=== PATIENT | female | born 1955 | race Caucasian/White ===

== ENCOUNTER 2020-05-10 10:02 | Outpatient (CLI) | payer OTHER, SELFPAY ==
--- NOTE | ~2020-05-10 | XR_ITS ---
EXAMINATION: XR shoulder RT min 2V DATE: 05/10/2020 10:18 INDICATION: Right shoulder pain. TECHNIQUE: 4 views of right shoulder were obtained. COMPARISON: None. FINDINGS: Bone alignment is normal. No fracture. There is mild osteoarthritis of glenohumeral joint a nd severe osteoarthritis of the acromioclavicular joint. IMPRESSION: 1. Polyarticular osteoarthritis. Reviewed, dictated and finalized at location A.
== END 2020-05-10 10:03 | disposition home or self-care (01) ==
LOC: ANHIMG 10:06
PROVIDERS: PCP Family Medicine; Visit Provider Physician Assistant
DX: M25.511 Pain in right shoulder (principal); M19.011 Primary osteoarthritis, right shoulder
CPT/HCPCS: 73030

== ENCOUNTER 2020-07-10 06:53 | Outpatient (NON) | payer OTHER, SELFPAY ==
[2020-07-10 21:00] LABS: SARS-CoV-2 RNA PCR Positive
== END 2020-07-10 06:54 ==
LOC: ANHCOVIDDT 07:09
PROVIDERS: PCP Family Medicine; Visit Provider Family Medicine
DX: U07.1 COVID-19 (principal)
CPT/HCPCS: 87635; C9803; U0003

== ENCOUNTER → 2020-07-22 11:59 | Outpatient (CLI) | payer OTHER, SELFPAY ==
--- NOTE | ~2020-07-22 | US_ITS ---
US renal BI 07/22/2020 12:43 Procedure: Realtime transabdominal ultrasound of the kidneys and bladder. Indication: Tubulointerstitial nephritis. Comparison: 08/26/2012 Findings: Renal echotexture is normal bilaterally without hydronephrosis, contour deforming mass or r enal calculus. The right kidney measures 8.8 cm and left kidney measures 10.4 cm. Bladder not well d istended for evaluation. Impression: 1: Mild right renal atrophy. Reviewed, dictated and finalized at location B. MAKER Impression: 1: Mild right renal atrophy.
== END ==
PROVIDERS: PCP Family Medicine; Visit Provider Family Medicine
DX: R10.9 Unspecified abdominal pain (principal); N12 Tubulo-interstitial nephritis, not specified as acute or chronic; R31.9 Hematuria, unspecified; Z87.448 Personal history of other diseases of urinary system; N26.1 Atrophy of kidney (terminal)
CPT/HCPCS: 76775

== ENCOUNTER → 2020-12-27 01:50 | Outpatient (CLI) | payer OTHER, SELFPAY ==
[2020-12-28 14:52] LABS: SARS-CoV-2 RNA PCR Negative
== END ==
PROVIDERS: PCP Family Medicine; Visit Provider Internal Medicine Gastroenterology
DX: Z01.812 Encounter for preprocedural laboratory examination (principal); Z20.822 Contact with and (suspected) exposure to COVID-19
CPT/HCPCS: C9803; U0003; U0005

== ENCOUNTER 2020-12-30 02:23 | Day surgery (SDC) | payer OTHER, SELFPAY ==
[2020-12-23 10:48] VITALS: BMI 39.0
--- NOTE | 2020-12-30 10:24 | WPDANESEPPF ---
Anes - Initial Pre Proc Eval Procedure: Operation Date: 12/30/20 12:00 Proposed Procedures p Screening Colonoscopy - Roland Jiménez MD Date/Time: 12/30/20 10:24 Surgeon: Roland Jiménez MD Pre Op Diagnosis: neoplasm screening Patient Data Age: 65 Gender: F Height: 1.6 m Weight: 100 kg Allergies Allergy/AdvReac Type Severity Reaction Status Date / Time exenatide Allergy Unknown Unknown Verified 12/30/20 10:32 grass pollen Allergy Unknown unknown Verified 12/30/20 10:32 latex Allergy Unknown Unknown Verified 12/30/20 10:32 morphine Allergy Unknown Unknown Verified 12/30/20 10:32 Penicillins Allergy Unknown Unknown Verified 12/30/20 10:32 Home Medications Medication Instructions Recorded Confirmed Type simvastatin 20 mg tablet 20 mg PO DAILY #90 tablet 11/08/19 12/23/20 Rx loratadine 10 mg tablet 10 mg PO DAILY 07/08/20 12/23/20 History hydrocodone 5 mg-acetaminophen 325 1 tablet PO Q6H PRN #28 tablet 07/23/20 12/23/20 Rx mg tablet allopurinol 300 mg tablet 300 mg PO DAILY #90 tablet 09/03/20 12/23/20 Rx diclofenac sodium 75 mg 75 mg PO BID #180 tablet 09/03/20 12/23/20 Rx tablet,delayed release glimepiride 1 mg tablet 0.5 mg PO QAM #90 tablet 09/03/20 12/23/20 Rx liraglutide 0.6 mg/0.1 mL (18 mg/3 1.2 mg SUB-Q DAILY #27 ml 09/03/20 12/23/20 Rx mL) subcutaneous pen injector lisinopril 10 mg tablet 10 mg PO BID #180 tablet 09/03/20 12/23/20 Rx oxybutynin chloride 15 mg 15 mg PO DAILY #90 tablet 09/03/20 12/23/20 Rx tablet,extended release 24 hr cholecalciferol (vitamin D3) 1,250 50,000 unit PO .2 per week #26 cap 09/09/20 12/23/20 Rx mcg (50,000 unit) capsule hydrocodone 5 mg-acetaminophen 325 1 tablet PO Q6H PRN #30 tablet 09/29/20 12/23/20 Rx mg tablet Patient hx anesthesia problems: none Family hx anesthesia problems: none PMFSH Past Medical History Medical History (Updated 12/29/20 @ 10:17 by Vin Zuniga DO) Arthritis of shoulder region, right Atrophy of right kidney Calculus of ureter 2012 right / stent History of kidney stones Low back pain Mixed hyperlipidemia Obesity Primary hyperparathyroidism Sacroiliac joint dysfunction of both sides Type 2 diabetes mellitus without complications Surgical History Surgical History (Updated 12/29/20 @ 10:17 by Vin Zuniga DO) History of History of spinal fusion Family History Family History Father Diabetes mellitus Hypertension Family history of elevated blood lipids Family history of coronary artery disease Arthritis, rheumatoid Sibling Family history of lupus erythematosus Social History Social History Smoking status: Never smoker Alcohol intake: current Substance use type: does not use Living arrangements: with family Gender identity (if verbalized by the patient): Female Anes - Eval Final PreProcedure Day of Procedure 12/30/20 10:24 Patient weight: obese Heart: regular rate and rhythm Lungs: clear to auscultation and normal air movement Airway: Mallampati scale class III Neurological: alert and oriented Last oral intake: >/= 8 hours ASA classification: III Emergent: no Anesthetic plan: proceed Anesthesia type and monitoring: general GIVS and standard monitoring Informed Consent: The patient's anesthetic plan and its attendant risks and benefits were discussed with the patient/family/POA. Questions were solicited and answers provided to the satisfaction of the patient/family/POA.
[2020-12-30 10:34] VITALS: BP 114/72; PULSE 108; RESP 24; TEMP 36.2; O2SAT 96; BMI 40.9
[2020-12-30] MEDS: LACTATED RINGERS 1,000 ML 150 ML IV CONT (10:38)
--- NOTE | 2020-12-30 10:40 | PM.HPGS ---
History of Present Illness History of Present Illness Consent: Risks, benefits, and alternatives have been discussed and questions answered. Patient agrees to proceed with procedure. Chief complaint: neoplasm screening Narrative: Cathy Glynn is a 65 year old female with last colonoscopy 2009 Review of Systems Constitutional: Constitutional: Denies headache(s) and Denies weakness Eyes: Eyes: Denies blurry vision ENT: Reports Normal hearing present, Denies headache(s) and Denies neck pain Cardiovascular: Cardiovascular: Denies chest pain and Denies dyspnea Respiratory: Respiratory: Denies dyspnea Gastrointestinal: Gastrointestinal: Reports no additional gastrointestinal complaints Genitourinary: Genitourinary: Denies dysuria Musculoskeletal: Musculoskeletal: Denies neck pain Integumentary/Breasts: Skin/Breast: Denies dry skin Neurologic: Reports Normal hearing present, Denies headache(s) and Denies weakness Psychiatric: Psychiatric: Denies anxiety Endocrine: Endocrine: Denies change in body appearance Hematologic/Lymphatic: Hematologic/Lymphatic: Denies easy bleeding Allergic/Immunologic: Allergic/Immunologic: Denies urticaria PMF Past Medical History Medical History (Updated 12/29/20 @ 10:17 by Vin Zuniga DO) Arthritis of shoulder region, right Atrophy of right kidney Calculus of ureter 2013 right / stent History of kidney stones Low back pain Mixed hyperlipidemia Obesity Primary hyperparathyroidism Sacroiliac joint dysfunction of both sides Type 2 diabetes mellitus without complications Surgical History Surgical History (Updated 12/29/20 @ 10:17 by Vin Zuniga DO) History of History of spinal fusion Family History Family History Father Diabetes mellitus Hypertension Family history of elevated blood lipids Family history of coronary artery disease Arthritis, rheumatoid Sibling Family history of lupus erythematosus Social History Social History Smoking status: Never smoker Alcohol intake: current Substance use type: does not use Living arrangements: with family Gender identity (if verbalized by the patient): Female Meds Home Medications and Allergies Home Medications Medication Instructions Recorded Confirmed Type simvastatin 20 mg tablet 20 mg PO DAILY #90 tablet 11/08/19 12/23/20 Rx loratadine 10 mg tablet 10 mg PO DAILY 07/08/20 12/23/20 History hydrocodone 5 mg-acetaminophen 325 1 tablet PO Q6H PRN #28 tablet 07/23/20 12/30/20 Rx mg tablet allopurinol 300 mg tablet 300 mg PO DAILY #90 tablet 09/03/20 12/30/20 Rx diclofenac sodium 75 mg 75 mg PO BID #180 tablet 09/03/20 12/30/20 Rx tablet,delayed release glimepiride 1 mg tablet 0.5 mg PO QAM #90 tablet 09/03/20 12/30/20 Rx liraglutide 0.6 mg/0.1 mL (18 mg/3 1.2 mg SUB-Q DAILY #27 ml 09/03/20 12/30/20 Rx mL) subcutaneous pen injector lisinopril 10 mg tablet 10 mg PO BID #180 tablet 09/03/20 12/30/20 Rx oxybutynin chloride 15 mg 15 mg PO DAILY #90 tablet 09/03/20 12/23/20 Rx tablet,extended release 24 hr cholecalciferol (vitamin D3) 1,250 50,000 unit PO .2 per week #26 cap 09/09/20 12/30/20 Rx mcg (50,000 unit) capsule hydrocodone 5 mg-acetaminophen 325 1 tablet PO Q6H PRN #30 tablet 09/29/20 12/30/20 Rx mg tablet Allergies Allergy/AdvReac Type Severity Reaction Status Date / Time exenatide Allergy Unknown Unknown Verified 12/30/20 10:32 grass pollen Allergy Unknown unknown Verified 12/30/20 10:32 latex Allergy Unknown Unknown Verified 12/30/20 10:32 morphine Allergy Unknown Unknown Verified 12/30/20 10:32 Penicillins Allergy Unknown Unknown Verified 12/30/20 10:32 Vital Signs Vital Signs - 24 hr 12/30/20 10:34 Temperature 97.2 F L Pulse Rate 108 H Respiratory Rate 24 H Blood Pressure 114/72 Pulse Oximetry 96 Exam Const: Ge
[2020-12-30 10:56] VITALS: BP 94/67; PULSE 93; RESP 30; O2SAT 95
[2020-12-30 11:06] VITALS: BP 116/92; PULSE 92; RESP 25; O2SAT 94
[2020-12-30 11:16] VITALS: BP 117/78; PULSE 83; RESP 16; O2SAT 94
== END 2020-12-30 11:17 | disposition home or self-care (01) ==
PROVIDERS: PCP Family Medicine; Visit Provider Internal Medicine Gastroenterology
PROC: 0DJD8ZZ Inspection of Lower Intestinal Tract, Via Natural or Artificial Opening Endoscopic (ICD-10-PCS; CPT 45378; principal; 2020-12-30 12:00)
DX: Z12.11 Encounter for screening for malignant neoplasm of colon (principal); K57.30 Diverticulosis of large intestine without perforation or abscess without bleeding; K64.8 Other hemorrhoids; E78.2 Mixed hyperlipidemia; E11.9 Type 2 diabetes mellitus without complications; N26.1 Atrophy of kidney (terminal); E21.3 Hyperparathyroidism, unspecified; E66.9 Obesity, unspecified; Z68.41 Body mass index [BMI] 40.0-44.9, adult; Z79.84 Long term (current) use of oral hypoglycemic drugs; Z79.891 Long term (current) use of opiate analgesic
CPT/HCPCS: 45378; C9803; J7120; U0003; U0005

== ENCOUNTER → 2021-01-23 12:20 | Outpatient (CLI) | payer OTHER, SELFPAY ==
--- NOTE | ~2021-01-23 | MM_ITS ---
EXAMINATION: MM screening lew BI w guillermo HISTORY: Screening TECHNIQUE: Craniocaudal and mediolateral oblique 3-D tomosynthesis images were obtained and synthetic 2-D images were generated. CAD analysis was submitted and interpreted. COMPARISON: Comparison to multiple prior studies sequentially, with oldest reviewed study dated 01/2012. BREAST PARENCHYMAL COMPOSITION: There are scattered areas of fibroglandular density. FINDINGS: There is a developing asymmetry in the upper outer quadrant of the left breast with associa jez calcifications. The right breast is stable without evidence for malignancy. IMPRESSION: 1. Developing left breast asymmetry. 2. Additional spot compression and mediolateral views with possible follow-up breast ultrasound recom mended. BI-RADS Category 0: Incomplete: Needs additional imaging evaluation. Reviewed, dictated and finalized at location A. IMPRESSION: 1. Developing left breast asymmetry. 2. Additional spot compression and mediolateral views with possible follow-up b reast ultrasound recommended. BI-RADS Category 0: Incomplete: Needs additional imaging evaluation.
--- NOTE | ~2021-01-23 | DEXA_ITS ---
Bone Density Report Name: Cathy Glynn Age: 65 Sex: Female Ethnicity: White Date of : 1955 Indication: postmenopausal; screening for osteoporosis; parental hip fracture; height loss; Referring Provider: CHRISTIAN ENCINAS Study: Bone densitometry was performed. Exam Date: January 23, 2021 Accession number: [id number] Bone Density: Region BMD T-score Z-score Classification AP Spine (L1, L2) 1.062 0.8 2.4 Normal Femoral Neck (Left) 0.574 -2.5 -1.0 Osteoporosis Total Hip (Left) 0.817 -1.0 0.2 Normal Femoral Neck (Right) 0.660 -1.7 -0.2 Osteopenia Total Hip (Right) 0.800 -1.2 0.0 Osteopenia Total Hip Mean 0.809 -1.1 0.1 Osteopenia World Health Organization criteria for BMD impression classify patients as: Normal (T-score at or above -1.0), Osteopenia (T-score between -1.0 and -2.5), or Osteoporosis (T-score at or below -2.5). 10-year Fracture Risk: FRAX not reported because: Some T-score for Spine Total or Hip Total or Femoral Neck at or below -2.5 Clinical Information Provided by Patient: Parent has had a hip fracture Has used the following medications: Vitamin D Patient maximum height was 64.0 Menopause Age: 50 No regular weight bearing exercise Drinks caffeinated beverages Onset of menses at age 13 Number of children 2 Impression: The patient has osteoporosis, based on the Left Femoral Neck T-score. The patient has risk factors, including: parental hip fracture. Discussion: INCREASED RISK OF FRACTURE. BONE DENSITY IS UNDESIRABLY LOW AT ONE OR MORE SKELETAL SITES, CONSISTENT WITH POSTMENOPAUSAL OSTEOPOROSIS. This patient's lowest T-score meets the World Health Organization's (WHO) criteria for osteoporosis at one or more sites (T-score -2.5 or below). In untreated patients, the risk of osteoporotic fracture increases approximately two-fold for each 1.0 SD decrease in T-score. Low bone density is not the only risk factor for fracture; also consider factors such as patient's age, frailty or poor health, risk of falling, risk of injury, previous osteoporotic fracture, family history of osteoporosis, cigarette smoking, low body weight, etc. Not everyone with low bone mineral density has osteoporosis; osteomalacia and other metabolic bone disorders should also be considered. Patients who have osteoporosis should be evaluated for specific diseases and conditions (secondary causes) that may cause or contribute to bone loss. The [place] [employer]ocrinologists (AACE) and National Osteoporosis Foundation (NOF) recommend pharmacologic intervention for all postmenopausal women whose T-score is in this range. The patient should follow a healthful lifestyle (good nutrition with adequate calcium and vitamin D, and appropriate weight-bearing exercise). Follow-Up: Consider a repeat BMD and Verteb
== END ==
PROVIDERS: PCP Family Medicine; Visit Provider Family Medicine
DX: Z12.31 Encounter for screening mammogram for malignant neoplasm of breast (principal); E21.0 Primary hyperparathyroidism; Z13.820 Encounter for screening for osteoporosis; R92.8 Other abnormal and inconclusive findings on diagnostic imaging of breast; M81.0 Age-related osteoporosis without current pathological fracture; M85.851 Other specified disorders of bone density and structure, right thigh
CPT/HCPCS: 77063; 77067; 77080

== ENCOUNTER → 2021-02-02 08:56 | Outpatient (CLI) | payer OTHER, SELFPAY ==
--- NOTE | ~2021-02-02 | MMUS_ITS ---
EXAMINATION: MM diagnostic mammo unilat LT, US breast LT limited HISTORY: Left breast asymmetry on screening mammogram TECHNIQUE: Additional 3-D tomosynthesis images of the left breast were performed and synthetic 2-D im ages were generated. CAD analysis was submitted and interpreted. High resolution limited left breast ultrasound was performed. COMPARISON: 01/23/2021, 10/27/2016, 11/26/2011 FINDINGS: MAMMOGRAPHIC FINDINGS: There is a persistent focal asymmetry with punctate calcification at the 2:00 location 13 cm from the nipple in the posterior third of the breast. ULTRASOUND: There appears to be an approximately 1.9 x 1.7 cm oval, not parallel mass with indistinct margins at the 2:00 location 12 cm from the nipple with internal vascularity and mixed posterior features. There there are two cysts at the 1:00 location 12 cm from the nipple measuring 1.1 cm and 1.8 cm. There is a questionable 5 mm oval hypoechoic mass with no posterior features or internal vascularity at the 2 :00 location 7 cm from the nipple. IMPRESSION: 1. Indeterminate mass at the 2:00 location 12 cm from the nipple. 2. Ultrasound-guided biopsy is recommended. BI-RADS category 4, suspicious findings. Reviewed, dictated and finalized at location A. IMPRESSION: 1. Indeterminate mass at the 2:00 location 12 cm from the nipple. 2. Ultrasound-guided biopsy is recommended. BI-RADS category 4, suspicious findings.
== END ==
PROVIDERS: PCP Family Medicine; Visit Provider Family Medicine
DX: R92.8 Other abnormal and inconclusive findings on diagnostic imaging of breast (principal)
CPT/HCPCS: 76642; 77065

== ENCOUNTER 2022-02-19 15:19 | Outpatient (CLI) | payer OTHER, SELFPAY ==
--- NOTE | ~2022-02-19 | US_ITS ---
EXAMINATION: US pelvic complete DATE: 02/19/2022 15:55 INDICATION: Postmenopausal bleeding Comparison:No prior studies for comparison. TECHNIQUE: Multiple transabdominal and endovaginal sonographic images of the pelvis performed. FINDINGS: The uterus measures 6.5 x 1.7 x 3.1 cm. The endometrial complex measures 3 mm. There are ut erine fibroids, largest measuring 2.6 cm. The ovaries are not visualized. There is no free fluid in the pelvis. There are no abnormal masses s een on either side. IMPRESSION: 1. Multiple uterine fibroids, largest measuring 2.6 cm. Reviewed, dictated and finalized at location A.
== END 2022-02-19 15:20 | disposition home or self-care (01) ==
PROVIDERS: PCP Family Medicine; Visit Provider Family Medicine
DX: N95.0 Postmenopausal bleeding (principal); D25.9 Leiomyoma of uterus, unspecified
CPT/HCPCS: 76856

== ENCOUNTER 2022-05-31 11:26 | Outpatient (CLI) | payer OTHER, SELFPAY ==
[2022-05-31 12:16] LABS: Hematocrit 29.1 % (37.0-47.0); Hemoglobin 8.9 g/dL (12.0-15.0)
[2022-05-31 12:27] LABS: Anion Gap 10 mmol/L (8-16); Blood Urea Nitrogen 24 mg/dL (7-17); Calcium 9.2 mg/dL (8.4-10.2); Carbon Dioxide 22 mmol/L (22-30); Chloride 105 mmol/L (98-107); Estimated Glomerular Filt Rate 56; Glucose 196 mg/dL (65-110); Potassium 4.5 mmol/L (3.4-5.0); Sodium 137 mmol/L (137-145)
== END 2022-05-31 11:27 | disposition home or self-care (01) ==
LOC: ANHSURGERY 11:33
PROVIDERS: Anesthesiology; PCP Family Medicine; Visit Provider Obstetrics & Gynecology
DX: N95.0 Postmenopausal bleeding (principal); E11.9 Type 2 diabetes mellitus without complications; Z01.818 Encounter for other preprocedural examination
CPT/HCPCS: 36415; 80048; 85014; 85018

== ENCOUNTER 2022-06-05 10:30 | Observation (INO) | payer OTHER, SELFPAY ==
[2022-05-27 09:01] VITALS: BMI 32.8
--- NOTE | 2022-05-27 09:30 | PC.NURSE ---
Report to the Outpatient Waiting Room, entrance under the green pavilion located off [facility], at time __11:30AM on date __06/04/22 . OR Time: _1:30PM . Time changes happen often and if your time is changed the preop area will call you the afternoon before. - You and your visitor will be asked to self-screen and do not enter if you have any COVID symptoms. - Only one visitor and NO children visitors are allowed at this time. - The patient visitor is requested to leave or wait in car when not with patient due to restrictions. - A mask is required within the hospital. Patients may have clear liquids (water, carbonated beverages, clear teas, apple juice) until 3 hours prior to surgery with a maximum of 20 ounces. - No food from midnight until time of surgery Take the following medications with a SIP of water the morning of surgery: __METOPROLOL, HYDROCODONE NEEDED Medications to discontinue per physician ____XERALTO 24 HOURS BEFORE SURGERY PER DR ENCINAS-LAST DOSE- 06/03/22, HOLD ALL VITAMINS/SUPPLEMENTS 3 DAYS PRE-OP- LAST DOSE-05/31/22 Please no make-up, nail russian, hairspray, perfume, deodorant, or body powder the day of surgery. No jewelry (including any body piercings) or valuables the day of surgery, leave them at home. Please take a shower or bath the night before, or the morning of, surgery with an antibacterial soap. Wear comfortable, loose fitting clothing. Children are encouraged to wear pajamas. - Jewelry must be removed prior to entering the operating room. Rings and piercings that are not removed may be cut off. - The hospital will not accept responsibility for valuables. - Please leave all valuables, including medications, at home the day of surgery. If you are going home after surgery, a licensed driver examiner must drive you home. - NO public transportation without another adult. - We recommend that an adult stay with you for 24 hours following discharge. - We also recommend that you do not drive, make important decision, drink alcoholic beverages, or take any drugs that were not prescribed by your health care provider for at least 24 hours after your discharge time. Follow any additional instructions given to you from your surgeon. If you or anyone in your household have experienced Covid symptoms in the past week, please notify your surgeon or the nurse liaison at the phone number below for possible testing. Telephone instructions given to _PATIENT and asked if any additional questions and then verbalized understanding. Patient advised to call surgeon office or pre surgery nurse liaison [phone] if any additional questions.
--- NOTE | 2022-05-31 12:23 | PM.IMHP ---
H&P: HPI History of Present Illness Date/Time: 05/31/22 12:23 Chief Complaint: Postmenopausal bleeding Narrative: This is a 66-year-old female with history of breast cancer who had a DVT with chemotherapy. She was started on Xarelto then as vaginal bleeding. She is our primary care doctor and a Pap smear done which was normal and her cervix was too stenotic to do an endometrial biopsy. Risks and benefits of hysteroscopy reviewed REPLACED BY [facility] Past Medical History Medical History Arthritis of shoulder region, right Atrial fibrillation Atrophy of right kidney Calculus of ureter 2012 right / stent DVT (deep venous thrombosis) History of kidney stones Low back pain Mixed hyperlipidemia Obesity Osteoporosis Primary hyperparathyroidism Sacroiliac joint dysfunction of both sides Type 2 diabetes mellitus without complications Surgical History Surgical History History of History of spinal fusion Family History Family History Father Diabetes mellitus Hypertension Family history of elevated blood lipids Family history of coronary artery disease Arthritis, rheumatoid Sibling Family history of lupus erythematosus Social History Social History Smoking status: Never smoker Alcohol intake: current Substance use: never Substance use type: does not use Additional living arrangements comments: AND 2 DAUGHTERS Gender identity (if verbalized by the patient): Female Spiritual care concerns: No Meds Home Medications and Allergies Home Medications Medication Instructions Recorded Confirmed Type loratadine 10 mg tablet 10 mg PO DAILY 07/08/20 05/27/22 History triamcinolone acetonide 0.1 % See Rx Instructions .Route 05/05/21 05/27/22 Rx topical ointment .COMPLEX #80 grams cholecalciferol (vitamin D3) 1,250 50,000 unit PO .COMPLEX #26 caps 06/04/21 05/27/22 Rx mcg (50,000 unit) capsule diphenoxylate-atropine 2.5 1 tablet PO QID PRN diarrhea #60 06/04/21 05/27/22 Rx mg-0.025 mg tablet (Lomotil) tabs oxybutynin chloride 15 mg See Rx Instructions .Route 08/17/21 05/27/22 Rx tablet,extended release 24 hr .COMPLEX #90 tabs hydrocodone 5 mg-acetaminophen 325 1 tablet PO Q6H PRN pain #30 tabs 10/09/21 05/27/22 Rx mg tablet metoprolol succinate 50 mg 50 mg PO DAILY 10/29/21 05/27/22 History tablet,extended release 24 hr semaglutide 1 mg/dose (4 mg/3 mL) 1 mg (0.75 mL) subcut WEEKLY #13 mL 11/12/21 05/27/22 Rx subcutaneous pen injector (Ozempic) zolpidem 10 mg tablet (Ambien) 10 mg PO QHS PRN sleep #30 tabs 11/12/21 05/27/22 Rx simvastatin 20 mg tablet See Rx Instructions .Route 01/13/22 05/27/22 Rx .COMPLEX #90 tabs metformin 1,000 mg tablet 1,000 mg PO BID #180 tabs 03/16/22 05/27/22 Rx rivaroxaban 20 mg tablet (Xarelto) 20 mg PO DAILY #90 tabs 04/28/22 05/27/22 Rx allopurinol 300 mg tablet 300 mg PO DAILY 05/27/22 05/27/22 History diclofenac sodium 75 mg 75 mg PO BID 05/27/22 05/27/22 History tablet,delayed release omega-3 fatty acids-vitamin E 1 cap PO DAILY 05/27/22 05/27/22 History 1,000 mg capsule silver sulfadiazine 1 % topical 1 applic topical BID PRN Wound 05/27/22 05/27/22 History cream Healing Allergies Allergy/AdvReac Type Severity Reaction Status Date / Time exenatide Allergy Unknown Itching Verified 05/27/22 08:50 latex Allergy Unknown REDNESS/SKIN Verified 05/27/22 08:50 IRRITATION morphine Allergy Unknown Nausea and Verified 05/27/22 08:50 Vomiting Penicillins Allergy Unknown Hives Verified 05/27/22 08:50 grass pollen AdvReac Unknown SINUS Verified 05/27/22 08:50 PROBLEMS Exam Const: General: cooperative, healthy appearing, comfortable and overweight Nutritional Appearance: overweight Orientation/co
[2022-06-04] VITALS (29 sets, daily range): BP systolic 60–115; BP diastolic 30–66; PULSE 60–103; RESP 12–20; TEMP 36.3–36.8; O2SAT 96–100; BMI 35.1
--- NOTE | 2022-06-04 06:33 | WPDHPUPDATE1 ---
History and Physical Update Update Date/Time: 06/04/22 06:33 History and Physical has been reviewed, including an updated exam of the patient. There are NO changes in the patient's condition. Risks, benefits, and alternatives have been discussed and questions answered. Patient agrees to proceed with procedure.
--- NOTE | 2022-06-04 13:13 | WPDANESEPPF ---
Anes - Initial Pre Proc Eval Procedure: Operation Date: 06/04/22 14:30 Proposed Procedures p Hysteroscopy Dilation and Curettage - Manish Lantigua MD Date/Time: 06/04/22 13:13 Surgeon: Manish Lantigua MD Pre Op Diagnosis: post menopausal bleeding, hx of breast cancer Patient Data Age: 66 Gender: F Height: 1.6 m Weight: 84.1 kg Last Vital Signs Temp 36.3 C L 06/04/22 12:54 Pulse 103 H 06/04/22 12:54 Resp 16 06/04/22 12:54 BP 115/65 06/04/22 12:54 Pulse Ox 96 06/04/22 12:54 O2 Del Method Room Air 06/04/22 12:54 Allergies Allergy/AdvReac Type Severity Reaction Status Date / Time exenatide Allergy Unknown Itching Verified 05/27/22 08:50 latex Allergy Unknown REDNESS/SKIN Verified 05/27/22 08:50 IRRITATION morphine Allergy Unknown Nausea and Verified 05/27/22 08:50 Vomiting Penicillins Allergy Unknown Hives Verified 05/27/22 08:50 grass pollen AdvReac Unknown SINUS Verified 05/27/22 08:50 PROBLEMS Home Medications Medication Instructions Recorded Confirmed Type loratadine 10 mg tablet 10 mg PO DAILY 07/08/20 05/27/22 History triamcinolone acetonide 0.1 % See Rx Instructions .Route 05/05/21 05/27/22 Rx topical ointment .COMPLEX #80 grams cholecalciferol (vitamin D3) 1,250 50,000 unit PO .COMPLEX #26 caps 06/04/21 05/27/22 Rx mcg (50,000 unit) capsule diphenoxylate-atropine 2.5 1 tablet PO QID PRN diarrhea #60 06/04/21 05/27/22 Rx mg-0.025 mg tablet (Lomotil) tabs oxybutynin chloride 15 mg See Rx Instructions .Route 08/17/21 05/27/22 Rx tablet,extended release 24 hr .COMPLEX #90 tabs hydrocodone 5 mg-acetaminophen 325 1 tablet PO Q6H PRN pain #30 tabs 10/09/21 05/27/22 Rx mg tablet metoprolol succinate 50 mg 50 mg PO DAILY 10/29/21 05/27/22 History tablet,extended release 24 hr semaglutide 1 mg/dose (4 mg/3 mL) 1 mg (0.75 mL) subcut WEEKLY #13 mL 11/12/21 05/27/22 Rx subcutaneous pen injector (Ozempic) zolpidem 10 mg tablet (Ambien) 10 mg PO QHS PRN sleep #30 tabs 11/12/21 05/27/22 Rx simvastatin 20 mg tablet See Rx Instructions .Route 01/13/22 05/27/22 Rx .COMPLEX #90 tabs metformin 1,000 mg tablet 1,000 mg PO BID #180 tabs 03/16/22 05/27/22 Rx rivaroxaban 20 mg tablet (Xarelto) 20 mg PO DAILY #90 tabs 04/28/22 05/27/22 Rx allopurinol 300 mg tablet 300 mg PO DAILY 05/27/22 05/27/22 History diclofenac sodium 75 mg 75 mg PO BID 05/27/22 05/27/22 History tablet,delayed release omega-3 fatty acids-vitamin E 1 cap PO DAILY 05/27/22 05/27/22 History 1,000 mg capsule silver sulfadiazine 1 % topical 1 applic topical BID PRN Wound 05/27/22 05/27/22 History cream Healing hydrocodone 5 mg-acetaminophen 325 1 tablet PO Q4H PRN pain #14 tabs 06/04/22 Rx mg tablet Patient hx anesthesia problems: none Family hx anesthesia problems: none Results Review: All pre-operative results and documents have been reviewed as part of the pre-operative evaluation. [facility] Past Medical History Medical History Arthritis of shoulder region, right Atrial fibrillation Atrophy of right kidney Calculus of ureter 2012 right / stent DVT (deep venous thrombosis) History of kidney stones Low back pain Mixed hyperlipidemia Obesity Osteoporosis Primary hyperparathyroidism Sacroiliac joint dysfunction of both sides Type 2 diabetes mellitus without complications Surgical History Surgical History History of History of spinal fusion Family History Family History Father Diabetes mellitus Hypertension Family history of elevated blood lipids Family history of coronary artery disease Arthritis, rheumatoid Sibling Family history of lupus erythematosus Social History Social History Smoking status: Never smoker Alcohol int
[2022-06-04] MEDS: ACETAMINOPHEN 500 MG TABLET 1000 MG PO (13:24)
[2022-06-04] MEDS: LACTATED RINGERS 1,000 ML 30 ML IV CONT ×3 (13:30→17:05)
[2022-06-04 13:37] LABS: Glucose Point of Care 185 mg/dl (65-105)
[2022-06-04] MEDS: LIDOCAINE HCL 1% PF 30 ML VIAL 10 ML INFILTRATE (14:34)
--- NOTE | 2022-06-04 14:47 | P.OP_ITS ---
Procedure Note - Detailed Date of Procedure 06/04/22 Pre-op Diagnosis post menopausal bleeding, hx of breast cancer Post-op Diagnosis Same Procedure Performed Hysteroscopy /polypectomy /dilatation curettage Surgeon Manish Lantigua MD Anesthesia MAC and Local Indications this is a 66-year-old female with postmenopausal bleeding with a history of breast cancer Findings very small uterus with questionable uterine polyp that looked benign in nature Description of Procedure patient was prepped draped in normal sterile fashion placed in the dorsal lithotomy position. Under excellent IV sedation weighted speculum placed in posterior fornix of vagina. Anterior lip of the cervix grasped with single- tooth tenaculum. Uterus was instilled at the cervix with 248 10:00 a.m. respectively with 2.5cc of 1% xylocaine anesthesia. Uterus sounded to 7cm. Serial dilatation with fragmented dilators performed followed by passage of the 5mm visualizing hysteroscope. Normal saline was used as visualizing medium. Small polypoid lesion was present appeared benign in nature. This was removed piecemeal. The uterus scraped over the tire 360? until good grating sound was heard. The instruments removed and blood loss was estimated at5cc. All sponge, needle, instrument counts were correct. There were no immediate complications Estimated Blood Loss 5 Drains No Packing No Pathology Yes Complications No immediate complications Condition Stable Disposition PACU
[2022-06-04 15:05] LABS: Glucose Point of Care 162 mg/dl (65-105)
[2022-06-04] MEDS: ONDANSETRON INJ 4 MG/2 ML VIAL IV PUSH (15:27)
[2022-06-04 16:19] LABS: Hematocrit 19.9 % (37.0-47.0); Hemoglobin 6.1 g/dL (12.0-15.0)
--- NOTE | 2022-06-04 16:22 | PM.GYNPNOP ---
REEL CART OPERATOR - A/P Assessment and plan (1) Post-menopausal bleeding: Code(s): N95.0 - Postmenopausal bleeding Status: Acute Assessment and Plan: low hgb Plan admit and observe/give 2 units packed rbcs/ check us pelvis Postoperative Procedures: Procedures Operation Date: 06/04/22 14:30 Actual Procedure Side Surgeon p Hysteroscopy Dilation and Curettage Manish Lantigua MD Time Spent With Patient Time: Total time spent is greater than 50% in coordination of care (as documented) at patient's floor/unit and/or counseling patient: Time with patient: less than 15 minutes REEL CART OPERATOR- PN:Subj Post-Op Subjective Date/time seen: 06/04/22 16:22 Interval history: bps are soft. no active bleeding on pad . abdomen soft Exam Const: General: cooperative and comfortable Orientation/consciousness: oriented to person, oriented to place and oriented to time HENMT: Head: normal to inspection Resp: Effort & Inspection: normal respiratory effort GI: Inspection: normal to inspection and other (minimal suprapubic tenderness) REEL CART OPERATOR - PN: Obj Data Vital Signs Vital Signs: Vital Signs - 24 hr 06/04/22 12:54 06/04/22 14:52 06/04/22 15:15 Temperature 97.4 F L Pulse Rate 103 H 93 90 Respiratory Rate 16 16 16 Blood Pressure 115/65 99/53 L 106/66 Pulse Oximetry 96 97 96 Oxygen Delivery Room Air Room Air Room Air 06/04/22 15:30 Temperature Pulse Rate 89 Respiratory Rate 16 Blood Pressure 89/54 L Pulse Oximetry Oxygen Delivery Room Air Intake/Output Intake/Output: Intake & Output 06/01/22 06/02/22 06/03/22 06/04/22 23:59 23:59 23:59 23:59 Intake Total 0 Balance 0 Meds/Results Medications: Active Medications Generic Name Dose Route Start Last Admin Trade Name Freq PRN Reason Stop Dose Admin Fentanyl Citrate 25 mcg 06/04/22 13:15 Fentanyl Citrate Inj (*Crx) 100 Mcg/2 Ml Vial IV PUSH Q2M PRN Pain Fentanyl Citrate 12.5 mcg 06/04/22 16:07 Fentanyl Citrate Inj (*Crx) 100 Mcg/2 Ml Vial IV PUSH Q2M PRN Pain Lactated Ringer's 1,000 mls @ 30 mls/hr 06/04/22 12:25 06/04/22 14:52 Lr - Lactated Ringers Iv IV CONT 30 mls/hr .Q24H MAXIM Infusion Lactated Ringer's 1,000 mls @ 30 mls/hr 06/04/22 13:15 Lr - Lactated Ringers Iv IV CONT .Q24H MAXIM Ondansetron HCl 4 mg 06/04/22 13:15 06/04/22 15:27 Ondansetron Inj 4 Mg/2 Ml Vial IV PUSH 4 mg ONCE PRN Administration Nausea Labs CBC & Chem 7: 06/04/22 16:04 Labs: Laboratory Results - last 24 hr 06/04/22 06/04/22 06/04/22 13:32 14:58 16:04 Hgb 6.1 L* Hct 19.9 L* POC Capillary Glucose 185 H 162 H
--- NOTE | 2022-06-04 17:55 | SUR.PHASEII ---
1545- Dr. De Jesus called to outpatient room 12 for low BP on automatic monitor of 50's/30's with HR in 70's patient talking to this RN. Manual BP obtained by Maura Torres RN 60/30's [address] Dr[address] De Jesus at bedside to assess patient. Patient's HR in 80's and oxygen saturation in 90's. Patient with scant bleeding to manav pad. Patient is tender to palpation to lower abdomen by Dr. De Jesus.
--- NOTE | 2022-06-04 18:08 | SUR.PHASEII ---
1600- STAT H&H ordered by Dr. De Jesus and Dr. De Jesus at bedside. 1610- Dr. Varghese Lantigua called and to bedside to assess patient. Per Dr. Varghese Lantigua continue monitoring patient closely with IV fluids infusing. Notify him of H&H once resulted. 1624- critical H&H called to Dr. Varghese Lantigua of 6.[address] Varghese Lantigua patient will need admitted and 2 units of PRBC's infused. 1639- Call to Solomon Matias CRNA for patient's low BP. Per Solomon he will be to bedside to see patient.
--- NOTE | 2022-06-04 18:12 | SUR.PHASEII ---
1635- STAT ultrasound of abdomen/pelvis orders obtained from Dr. Varghese Lantigua. 1713- semiconductor technician performed STAT ultrasound at bedside. 1720- Dr. Varghese Lantigua to outpatient room 12 after seeing ultrasound imaging and spoke with patient, daughter, spouse, this RN and CLOTH CUTTER Solomon Matias. Orders to admit patient to IMU obtained.
[2022-06-04] MEDS: LACTATED RINGERS 1,000 ML 125 ML IV CONT (19:16)
[2022-06-04] MEDS: KETOROLAC 30 MG/ML VIAL (*BKC) IV PUSH (19:22)
[2022-06-04 20:23] LABS: Hematocrit 17.8 % (37.0-47.0)
[2022-06-04 20:25] LABS: Hemoglobin 5.6 g/dL (12.0-15.0)
[2022-06-04 20:30] LABS: INR 1.2; Partial Thromboplastin Time 31.6 SECONDS (22.3-36.8); Prothrombin Time 14.5 Seconds (11.1-14.7)
[2022-06-04] MEDS: SODIUM CHLORIDE 0.9% IV 250 ML 30 ML IV CONT (20:41)
--- NOTE | 2022-06-04 22:28 | PM.IMCN ---
Assessment and Plan Assessment and plan (1) Nontraumatic hemorrhagic shock: Code(s): R57.8 - Other shock Status: Acute (2) Retroperitoneal hematoma: Code(s): K66.1 - Hemoperitoneum Status: Acute (3) Status post hysteroscopy: Code(s): Z98.890 - Other specified postprocedural states Status: Acute (4) Acute on chronic anemia: Code(s): D64.9 - Anemia, unspecified Status: Acute (5) Post-menopausal bleeding: Code(s): N95.0 - Postmenopausal bleeding Status: Acute (6) Type 2 diabetes mellitus without complications: Qualifiers: Diabetes mellitus penitentiary insulin use: without assistant terminal manager use Qualified Code(s): E11.9 - Type 2 diabetes mellitus without complications Code(s): E11.9 - Type 2 diabetes mellitus without complications Status: Acute Plan The patient developed hemorrhagic shock status post hysteroscopy due to right large retroperitoneal hematoma resulting in acute on chronic anemia. Patient's blood pressures improved after rib 3 units of packed red blood cells. OB Gyne came in and re-evaluated the patient. The patient's abdomen exam remains benign. After appropriate blood transfusion patient's hemoglobin improved to greater than 9. Blood pressures are now greater than 100 systolic. The patient's anemia is likely multifactorial due to recent chemotherapy administration and iron deficiency anemia. Will check ferritin, B12, folic acid and TIBC panel with a.m. labs. If ferritin is low patient may benefit from repeat iron infusion. Patient is having mild hyperglycemia. Will place patient on low-dose sliding scale insulin with Accu-Cheks q.6 hours while NPO. Hypoglycemia protocol has been provided. DVT prophylaxis and pain management per primary service. 85 minute spent in critical care activities. Due to a high probability of clinically significant, life threatening deterioration, the patient required my highest level of preparedness to intervene emergently and I personally spent this critical care time directly and personally managing the patient. This critical care time included obtaining a history; examining the patient; pulse oximetry; ordering and review of studies; arranging urgent treatment with development of a management plan; evaluation of patient's response to treatment; frequent reassessment; and discussions with other providers. It was exclusive of separately billable procedures and treating other patients and teaching time. Please see Assessment and Plan section and the rest of the note for further information on patient assessment and treatment. HPI Data of Consult Consult date: 06/05/22 Requesting Physician: Manish Lantigua MD Primary Care Provider: Jose De Jesus Fish MD Consult Narrative Narrative: Cathy Glynn is a 66 year old female with a past medical history of type 2 diabetes mellitus, vitamin-D deficiency, hypertension, hyperlipidemia and invasive ductal carcinoma of the left breast with 16 positive lymph nodes who who presented to the hospital for elective hysteroscopy due to dysfunctional uterine bleeding. The patient reports that in July 2021 she had a long hospitalization at which time she was immobile in developed right lower extremity DVT and had an episode of paroxysmal atrial fibrillation. The since that time her DVT has resolved and she has not had a recurrence of her atrial fibrillation but she has remained on anticoagulation with Xarelto. Since she is started on Xarelto she was having some dysfunctional is uterine bleeding which elicited today's procedure. She reports that her primary care physician told her to stop her Xarelto 2 days before procedure. Following the procedure in PACU patient became hypotensive. She received 3 L of LR and some Hespan. Gynecology had ordered 4 units of packed red blood cells. I was under the impression that the patient had already received 2 units of packed red blood
--- NOTE | 2022-06-04 22:38 | PC.NURSE ---
After completing shift report at 1999, patient had a blood pressure 70s systolic. Dr. Mitchell ordered repeat H&H. Lab reported H&H to be 5.6/17.8. Previous order noted to transfuse [address] Varghese Lantigua. First unit of PRBC started at 2035. Dr. Mitchell here to see patient. CT Of abdomen and pelvis ordered. Patient taken to CT, B/P 97/52.
--- NOTE | 2022-06-04 22:44 | PC.NURSE ---
CT report called by radiologist, Dr. Mitchell still here and took report. Patient has a large retroperitoneal hematoma. Dr. Varghese Lantigua notified and will come in to evaluate patient. Current B/P 94/60. Patient denies pain.
--- NOTE | 2022-06-04 23:21 | PC.NURSE ---
Dr. Varghese Lantigua here to see patient. Second unit of PRBC started. B/P 102/57. Continues to deny pain. Only has mild abdominal cramping.
--- NOTE | 2022-06-04 23:27 | PM.GYNPNOP ---
WIRE INSULATOR - A/P Postoperative Procedures: Procedures Operation Date: 06/04/22 14:30 Actual Procedure Side Surgeon p Hysteroscopy Dilation and Curettage Manish Lantigua MD Postoperative status: anemia and other ( Retroperitoneal hematoma) Postoperative plan: other ( will get 4units of blood and and consult with General surgery. Attempt to follow conservatively but be prepared to take back to surgery. Will consult with general surgeon) Time Spent With Patient Time: Total time spent is greater than 50% in coordination of care (as documented) at patient's floor/unit and/or counseling patient: Time with patient: 15 - 25 minutes WIRE INSULATOR- PN:Subj Post-Op Subjective Date/time seen: 06/04/22 23:27 Interval history: Cold to see patient concerning low blood pressure. She has been somewhat hypotensive. Hemoglobin at around 2:00 p.m. postoperatively was 6.1. She was somewhat hypertensive and underwent repeat hemoglobin and is 5.6. Stat CT scan shows retroperitoneal hematoma on the right. She is completely asymptomatic pain singleton but had not received any blood up to this point. Significantly she stop Xarelto a couple days ago preoperatively. She presently looks hydrated and is talking and not hemostatic. Her 1st unit of blood has been entered and she is scheduled for a total of 4. Exam Const: General: cooperative, healthy appearing and comfortable HENMT: Head: normal to inspection Resp: Effort & Inspection: normal respiratory effort GI: Inspection: normal to inspection and Pannus present Percussion: Yes normal to percussion WIRE INSULATOR - PN: Obj Data Vital Signs Vital Signs: Vital Signs - 24 hr 06/04/22 12:54 06/04/22 14:52 06/04/22 15:15 Temperature 97.4 F L Pulse Rate 103 H 93 90 Respiratory Rate 16 16 16 Blood Pressure 115/65 99/53 L 106/66 Pulse Oximetry 96 97 96 Oxygen Delivery Room Air Room Air Room Air Oxygen Flow Rate 06/04/22 15:30 06/04/22 15:45 06/04/22 15:50 Temperature Pulse Rate 89 80 72 Respiratory Rate 16 12 12 Blood Pressure 89/54 L 60/30 L 75/39 L Pulse Oximetry 100 100 Oxygen Delivery Room Air Simple Face Mask Simple Face Mask Oxygen Flow Rate 8 8 06/04/22 15:55 06/04/22 16:00 06/04/22 16:05 Temperature Pulse Rate 72 60 75 Respiratory Rate 12 12 12 Blood Pressure 79/43 L 97/55 L 81/39 L Pulse Oximetry 100 100 100 Oxygen Delivery Simple Face Mask Simple Face Mask Simple Face Mask Oxygen Flow Rate 8 8 8 06/04/22 16:10 06/04/22 16:15 06/04/22 16:20 Temperature Pulse Rate 78 74 80 Respiratory Rate 14 14 14 Blood Pressure 76/35 L 83/41 L 76/45 L Pulse Oximetry 100 100 100 Oxygen Delivery Simple Face Mask Simple Face Mask Simple Face Mask Oxygen Flow Rate 8 8 8 06/04/22 16:25 06/04/22 16:35 06/04/22 17:05 Temperature Pulse Rate 86 83 83 Respiratory Rate 16 14 14 Blood Pressure 71/42 L 70/40 L 81/40 L Pulse Oximetry 100 100 100 Oxygen Delivery Nasal Cannula Nasal Cannula Nasal Cannula Oxygen Flow Rate 2 2 5 06/04/22 17:30 06/04/22 17:45 06/04/22 18:05 Temperature Pulse Rate 85 85 80 Respiratory Rate 16 18 18 Blood Pressure 85/45 L 87/52 L 94/55 L Pulse Oximetry 100 100 100 Oxygen Delivery Nasal Cannula Nasal Cannula Nasal Cannula Oxygen Flow Rate 5 5 6 06/04/22 18:20 06/04/22 18:38 06/04/22 20:02 Temperature 97.8 F 97.5 F L Pulse Rate 78 86 85 Respiratory Rate 14 16 16 Blood Pressure 79/55 L 81/53 L 79/49 L Pulse Oximetry 100 100 98 Oxygen Delivery Nasal Cannula Oxygen Flow Rate 6 06/04/22 20:05 06/04/22 20:48 06/04/22 21:11 Temperature 97.7 F 98.2 F 98.2 F Pulse Rate 87 84 89 Respiratory Rate 16 16 16 Blood Pressure 76/49 L 91/54 L 97/52 L Pulse Oximetry 98 100 100 Oxygen Delivery Oxygen Flow Rate 06/04/22 22:11 06/04/22 23:05 Temperature 98.2 F 98.3 F Pulse Rate 84 89 Respiratory Rate 16 20 Blood Pressure 94/60 L 102/57 L Pulse Oximetry 100 98 Oxygen Delivery Oxygen Flow Rate Intake/Output Int
[2022-06-05] VITALS (21 sets, daily range): BP systolic 91–136; BP diastolic 55–72; PULSE 84–97; RESP 16–20; TEMP 36.3–37.7; O2SAT 90–98
--- NOTE | ~2022-06-05 | US_ITS ---
EXAMINATION: US pelvic complete DATE: 06/04/2022 17:13 INDICATION: Possible vaginal bleeding TECHNIQUE: Multiple transabdominal sonographic images of the pelvis were obtained. COMPARISON: 02/19/2022 FINDINGS: Examination is limited by transabdominal only technique. The uterus measures approximately 7.1 x 2.5 x 3.9 cm. The endometrial complex measures 4 mm. The ovaries are not visualized however no adnexal abnormality is seen. There is no free fluid in the pelvis. IMPRESSION: 1. No sonographic correlate for the patient's symptoms. Reviewed, dictated and finalized at location F.
--- NOTE | ~2022-06-05 | CT_ITS ---
EXAMINATION: CT abdomen pelvis wo con DATE: 06/04/2022 22:02 INDICATION: Hypotension status post vaginal hysterectomy TECHNIQUE: Computed tomography (CT) of the abdomen and pelvis was performed without intravenous contr ast. The dose-length product (DLP) was 1360.94 mGy-cm. Automated exposure control and iterative recon struction technique were employed. COMPARISON: 09/13/2012 FINDINGS: Minimal dependent atelectasis is present in the lung bases. The heart size is normal. There is a large amount of hematoma in the pelvis which tracks into the right pericolic gutter and into th e perihepatic space. The liver, spleen, pancreas, gallbladder, and adrenal glands are normal. The kid neys are unremarkable. No pathologically enlarged abdominal or pelvic lymph nodes are identified. The re is no free intraperitoneal gas or evidence of bowel obstruction. A moderate volume of colonic stoo l is present. Colonic diverticulosis is present without evidence of diverticulitis. There are changes of posterior fusion at L3-4. IMPRESSION: 1. Large pelvic hematoma with hemorrhage tracking into the right pericolic gutter and into the perihe patic space. These findings were discussed with Dr. Kathrine Mitchell DO at 1023 hours on 06/04/2022. Reviewed, dictated and finalized at location F. IMPRESSION: 1. Large pelvic hematoma with hemorrhage tracking into the right pericolic gutt er and into the perihepatic space. These findings were discussed with Dr. Sharri Mitchell DO at 1023 hours on 06/04/2022.
[2022-06-05] MEDS: TUBING, BLOOD PLUM PUMP TUBING 1 EACH XX ×2 (01:00→01:02)
--- NOTE | 2022-06-05 01:45 | PC.NURSE ---
This patient, Cathy Glynn, was admitted to IMU Room 212-01 on 06/04/22 at approx 1830. Patient/family oriented to hospital policies and general routines including ID bracelet, bed and alarms, visiting hours, pain management, procedures, bathroom and other care routines, personal items, smoking policy, room service/diet, and visiting hours. Information on how to activate the Rapid Response Team has been discussed. Patient/Family are encouraged to report perceived risks to care and to ask questions if they do not understand what they are told or what they should do.
[2022-06-05] MEDS: HYDROcodone/acetaminophen (*CRX) 10-325 MG TABLET 1 TAB PO ×4 (02:49→20:35)
[2022-06-05 02:54] LABS: Hematocrit 28.1 % (37.0-47.0); Hemoglobin 9.3 g/dL (12.0-15.0)
--- NOTE | 2022-06-05 04:18 | PC.NURSE ---
Dr. Varghese Lantigua called in for patient update. Discussed H&H, vital signs, abdominal cramping but no back pain. Will put in a consult for Dr. Britton Don, already notified by Dr. Varghese Lantigua.
[2022-06-05] MEDS: CENTRAL LINE FLUSH 10 ML IV PUSH ×4 (04:40→22:29)
[2022-06-05 07:24] LABS: Basophils Absolute Auto 0.1 K/mm3 (0.0-0.1); Basophils Percent Auto 0.9 % (0.2-1.2); Eosinophils Absolute Auto 0.5 K/mm3 (0-0.3); Hematocrit 30.9 % (37.0-47.0); Hemoglobin 10.3 g/dL (12.0-15.0); Immature Granulocyte Absolute 0.03 K/mm3 (0.00-0.031); Immature Granulocyte Percent A 0.4 % (0-0.5); Immature Platelet Fraction Pct 0.9 % (0.9-11.2); Lymphocytes Absolute Auto 1.09 K/mm3 (0.9-3.2); Lymphocytes Percent Auto 13.8 % (18.3-44.2); Mean Corpuscular HGB Conc 33.3 g/dl (32-36); Mean Corpuscular Hemoglobin 29.2 pg (26-34); Mean Corpuscular Volume 87.5 fl (80-100); Mean Platelet Volume 8.5 fl (7.4-10.4); Monocytes Absolute Auto 1.4 K/mm3 (0.1-0.6); Monocytes Percent Auto 17.1 % (2.6-8.5); Neutrophils Absolute Auto 4.9 K/mm3 (1.3-6.7); Neutrophils Percent Auto 61.8 % (45.5-73.1); Nucleated Red Blood Cells Perc 0.3 % (0.0-0.2); Platelet Count Result 81 k/mm3 (150-375); Red Blood Count 3.53 M/mm3 (4.2-5.4); Red Cell Distribution Width 16.4 % (11.5-14.5); White Blood Count 7.9 K/mm3 (4.5-10.0)
--- NOTE | 2022-06-05 07:33 | PC.NURSE ---
Spoke with daughter, Zeny, and updated her with the events of last night. All questions answered.
[2022-06-05 07:35] LABS: Alanine Aminotransferase 21 U/L (6-35); Albumin Level 2.9 g/dL (3.5-5.1); Alkaline Phosphatase 47 U/L (38-126); Anion Gap 8 mmol/L (8-16); Aspartate Amino Transferase 40 U/L (14-36); Bilirubin,Total 0.4 mg/dL (0.2-1.3); Blood Urea Nitrogen 16 mg/dL (7-17); Calcium 7.9 mg/dL (8.4-10.2); Carbon Dioxide 23 mmol/L (22-30); Chloride 106 mmol/L (98-107); Estimated CRCL calculation 73 ml/min; Estimated Glomerular Filt Rate > 60; Glucose 128 mg/dL (65-110); Potassium 3.8 mmol/L (3.4-5.0); Sodium 137 mmol/L (137-145)
[2022-06-05 07:38] LABS: INR 1.2; Prothrombin Time 14.3 Seconds (11.1-14.7)
[2022-06-05 07:40] LABS: Partial Thromboplastin Time 29.4 SECONDS (22.3-36.8)
--- NOTE | 2022-06-05 08:27 | PM.GYNPNOP ---
LEARNING SOLUTIONS SPECIALIST - A/P Postoperative Procedures: Procedures Operation Date: 06/04/22 14:30 Actual Procedure Side Surgeon p Hysteroscopy Dilation and Curettage Manish Lantigua MD Postoperative day: 1 Postoperative status: doing well and other (Hemoglobin rising as expected with transfusion. Blood pressures remaining stable. Await surgery consult. If okay with surgery will increase diet and activity.) Time Spent With Patient Time: Total time spent is greater than 50% in coordination of care (as documented) at patient's floor/unit and/or counseling patient: Time with patient: 15 - 25 minutes LEARNING SOLUTIONS SPECIALIST- PN:Subj Post-Op Subjective Date/time seen: 06/05/22 08:27 Interval history: Cold to see patient concerning low blood pressure. She has been somewhat hypotensive. Hemoglobin at around 2:00 p.m. postoperatively was 6.1. She was somewhat hypertensive and underwent repeat hemoglobin and is 5.6. Stat CT scan shows retroperitoneal hematoma on the right. She is completely asymptomatic pain singleton but had not received any blood up to this point. Significantly she stop Xarelto a couple days ago preoperatively. She presently looks hydrated and is talking and not hemostatic. Her 1st unit of blood has been entered and she is scheduled for a total of 4. Subjective: patient reports feeling better and pain is well controlled Exam Const: General: cooperative, healthy appearing and comfortable Orientation/consciousness: oriented to person, oriented to place and oriented to time Resp: Effort & Inspection: normal respiratory effort GI: Inspection: normal to inspection, Pannus present and obesity GI Palp: Yes Soft to palpation : Speculum Exam - Vagina: other (No vaginal bleeding) LEARNING SOLUTIONS SPECIALIST - PN: Obj Data Vital Signs Vital Signs: Vital Signs - 24 hr 06/04/22 12:54 06/04/22 14:52 06/04/22 15:15 Temperature 97.4 F L Pulse Rate 103 H 93 90 Respiratory Rate 16 16 16 Blood Pressure 115/65 99/53 L 106/66 Pulse Oximetry 96 97 96 Oxygen Delivery Room Air Room Air Room Air Oxygen Flow Rate 06/04/22 15:30 06/04/22 15:45 06/04/22 15:50 Temperature Pulse Rate 89 80 72 Respiratory Rate 16 12 12 Blood Pressure 89/54 L 60/30 L 75/39 L Pulse Oximetry 100 100 Oxygen Delivery Room Air Simple Face Mask Simple Face Mask Oxygen Flow Rate 8 8 06/04/22 15:55 06/04/22 16:00 06/04/22 16:05 Temperature Pulse Rate 72 60 75 Respiratory Rate 12 12 12 Blood Pressure 79/43 L 97/55 L 81/39 L Pulse Oximetry 100 100 100 Oxygen Delivery Simple Face Mask Simple Face Mask Simple Face Mask Oxygen Flow Rate 8 8 8 06/04/22 16:10 06/04/22 16:15 06/04/22 16:20 Temperature Pulse Rate 78 74 80 Respiratory Rate 14 14 14 Blood Pressure 76/35 L 83/41 L 76/45 L Pulse Oximetry 100 100 100 Oxygen Delivery Simple Face Mask Simple Face Mask Simple Face Mask Oxygen Flow Rate 8 8 8 06/04/22 16:25 06/04/22 16:35 06/04/22 17:05 Temperature Pulse Rate 86 83 83 Respiratory Rate 16 14 14 Blood Pressure 71/42 L 70/40 L 81/40 L Pulse Oximetry 100 100 100 Oxygen Delivery Nasal Cannula Nasal Cannula Nasal Cannula Oxygen Flow Rate 2 2 5 06/04/22 17:30 06/04/22 17:45 06/04/22 18:05 Temperature Pulse Rate 85 85 80 Respiratory Rate 16 18 18 Blood Pressure 85/45 L 87/52 L 94/55 L Pulse Oximetry 100 100 100 Oxygen Delivery Nasal Cannula Nasal Cannula Nasal Cannula Oxygen Flow Rate 5 5 6 06/04/22 18:20 06/04/22 18:38 06/04/22 20:02 Temperature 97.8 F 97.5 F L Pulse Rate 78 86 85 Respiratory Rate 14 16 16 Blood Pressure 79/55 L 81/53 L 79/49 L Pulse Oximetry 100 100 98 Oxygen Delivery Nasal Cannula Oxygen Flow Rate 6 06/04/22 20:05 06/04/22 20:48 06/04/22 21:11 Temperature 97.7 F 98.2 F 98.2 F Pulse Rate 87 84 89 Respiratory Rate 16 16 16 Blood Pressure 76/49 L 91/54 L 97/52 L Pulse Oximetry 98 100 100 Oxygen Delivery Oxygen Flow Rate 06/04/22 22:11 06/04/22 23:05 06/04/22 23:26 Temperature 98.2 F 98.3 F 98
[2022-06-05] MEDS: ONDANSETRON INJ 4 MG/2 ML VIAL IV PUSH (08:48)
[2022-06-05] MEDS: LACTATED RINGERS 1,000 ML 100 ML IV CONT (08:53)
[2022-06-05] MEDS: metFORMIN HCL 500 MG TABLET 1000 MG PO ×2 (08:55→18:43)
[2022-06-05] MEDS: OMEGA 3 POLYUNSAT FATTY ACIDS 1 GM CAP PO (08:55)
[2022-06-05] MEDS: allopurinoL 300 MG TABLET PO (08:55)
[2022-06-05] MEDS: LORATADINE 10 MG TABLET PO (08:55)
[2022-06-05] MEDS: SIMVASTATIN 20 MG TABLET PO (08:56)
[2022-06-05 09:53] LABS: Iron 45 ug/dL (37-170)
[2022-06-05 10:02] LABS: Percent Iron Saturation 11 % (20-50)
--- NOTE | 2022-06-05 10:08 | PM.IMPN ---
Progress Note: A&P Assessment and Plan (1) Nontraumatic hemorrhagic shock: Code(s): R57.8 - Other shock Status: Acute Assessment and Plan: Resolved, monitor (2) Retroperitoneal hematoma: Code(s): K66.1 - Hemoperitoneum Status: Acute Assessment and Plan: Status post hysteroscopy, likely due to Xarelto chronic treatment, even though this was held 2 days prior to procedure (3) Status post hysteroscopy: Code(s): Z98.890 - Other specified postprocedural states Status: Acute Assessment and Plan: Postop care provided by sleeve baster (4) Acute on chronic anemia: Code(s): D64.9 - Anemia, unspecified Status: Acute Assessment and Plan: Hemoglobin stable at 10.3, continue to monitor Recheck pending later this afternoon, will advance diet as tolerated if hemoglobin is stable at this check (5) Post-menopausal bleeding: Code(s): N95.0 - Postmenopausal bleeding Status: Acute Assessment and Plan: Postop day 1 from hysteroscopy (6) Type 2 diabetes mellitus without complications: Qualifiers: Diabetes mellitus exterminator helper insulin use: without mcc use Qualified Code(s): E11.9 - Type 2 diabetes mellitus without complications Code(s): E11.9 - Type 2 diabetes mellitus without complications Status: Acute Assessment and Plan: Accu-Cheks plus sliding scale insulin ordered A1c is 6.9 Plan The patient developed hemorrhagic shock status post hysteroscopy due to right large retroperitoneal hematoma resulting in acute on chronic anemia. Patient's blood pressures improved after 3 units of packed red blood cells. sleeve baster came in and re-evaluated the patient. The patient's abdomen exam remains benign. After appropriate blood transfusion patient's hemoglobin improved to greater than 9. Blood pressures are now greater than 100 systolic. The patient's anemia is likely multifactorial due to recent chemotherapy administration and iron deficiency anemia. Will check ferritin, B12, folic acid and TIBC panel with a.m. labs. If ferritin is low patient may benefit from repeat iron infusion. These labs still pending. DVT prophylaxis with SCDs GI prophylaxis not indicated Code status full code Subjective Date/time seen: 06/05/22 10:08 Interval history: No overnight events noted. No chest pain or shortness of breath. No nausea, vomiting or diarrhea. No fevers or chills. Patient is very upset that she is still NPO and wants to know what the plan is. Review of Systems Review of Systems: 12 point review of systems was assessed and was negative except as noted in the HPI Exam Narrative: General: No acute distress, alert and oriented per baseline HEENT: Atraumatic, normocephalic, mucous membranes moist CV: Regular rate and rhythm, S1, S2 Lungs: Clear to auscultation bilaterally, no rales or crackles noted, no wheezes, good air entry Abdomen: Soft, nontender, nondistended Extremities: Normal to inspection Skin: No rashes noted, no lesions or wounds seen Psych: Euthymic, normal affect Objective Data Vital Signs Vital Signs: Vital Signs - 24 hr 06/04/22 12:54 06/04/22 14:52 06/04/22 15:15 Temperature 97.4 F L Pulse Rate 103 H 93 90 Respiratory Rate 16 16 16 Blood Pressure 115/65 99/53 L 106/66 Pulse Oximetry 96 97 96 Oxygen Delivery Room Air Room Air Room Air Oxygen Flow Rate 06/04/22 15:30 06/04/22 15:45 06/04/22 15:50 Temperature Pulse Rate 89 80 72 Respiratory Rate 16 12 12 Blood Pressure 89/54 L 60/30 L 75/39 L Pulse Oximetry 100 100 Oxygen Delivery Room Air Simple Face Mask Simple Face Mask Oxygen Flow Rate 8 8 06/04/22 15:55 06/04/22 16:00 06/04/22 16:05 Temperature Pulse Rate 72 60 75 Respiratory Rate 12 12 12 Blood Pressure 79/43 L 97/55 L 81/39 L Pulse Oximetry 100 100 100 Oxygen Delivery Simple Face Mask Simple Face Mask Simple Face Mask Oxygen Flow Rate 8 8
[2022-06-05 10:48] LABS: Folic Acid 13.8 ng/mL (2.76->20)
[2022-06-05 12:59] LABS: Glucose Point of Care 134 mg/dl (65-105)
[2022-06-05 14:42] LABS: Hematocrit 31.7 % (37.0-47.0); Hemoglobin 10.4 g/dL (12.0-15.0)
--- NOTE | 2022-06-05 15:47 | PM.CNGS ---
Assessment and Plan Assessment and plan (1) Acute on chronic anemia: Code(s): D64.9 - Anemia, unspecified Status: Acute Assessment and Plan: Possibly secondary to bleeding due to coagulopathy and surgery with the D&C and subsequent intraperitoneal bleed. Follow-up outpatient CBC in 1 week and follow up with her oncologist / paintings restorer is recommended. (2) Pelvic hematoma in female: Code(s): N94.89 - Other specified conditions associated with female genital organs and menstrual cycle Status: Acute Assessment and Plan: The patient was seen and examined this afternoon. CT scan reviewed. [facility] radiology Report of the CT scan reviewed. From what I can see it appears that the patient had a pelvic hematoma that extended into the right pericolic gutter. I believe this was not retroperitoneal. However, her hemoglobin has come up to the range of 10 with 2 units of PRBC transfusion. She is hemodynamically stable as far vital signs and repeat H&H this afternoon shows her hemoglobin hematocrit to be stable. Therefore, would recommend we go ahead and allow her to eat and start moving around a little bit more. Just as we observe patient's with a perisplenic hematoma and limit their strenuous activity I think we should do this for the next 2-3 weeks for her. Walking, sitting in the chair, going up and down steps, should be okay. I reviewed her medications and prior to coming in she was taking fish oil and possibly ibuprofen and diclofenac. I would recommend avoiding everything that affects platelets in view of her low patent platelet count at 81,000. When discussing this with the patient, she knew that her recent chemotherapy medication does at times affect her platelet count. Also, would recommend staying off the Xarelto. Her DVT was more than 6 months ago. She denies current issues with atrial fibrillation which is a diagnosis on her past medical record. Both patient and her daughters confirm that this was something that happened around the time of her DVT and completion of her initial chemotherapy in July of 2021, and she has not had current problems with atrial fibrillation that she knows of. Her PCP has been running the Xarelto so she will stay off of it and has an appointment with him in approximately 1 week ( next Tuesday). I suggested that she discuss with him and possibly completely stay off the Xarelto at this time then. with and also recommend further anemic workup with her paintings restorer oncologist. I agree with keeping the patient overnight and rechecking a CBC in a.m.. If that is stable I would suggest discharge with the above precautions. I have stopped the currently ordered ibuprofen, ketorolac, and fish oil. History of Present Illness Consult details Consult date: 06/05/22 Reason for consult: other (Pelvic hematoma) Requesting physician: Manish Maxwell MD Narrative: Patient has a history of breast cancer and DVT and was on Xarelto. She was having daily postmenopausal vaginal bleeding. Therefore she came in for a D&C. After the D and C she had soft blood pressures and although she had a low hemoglobin preop id went even little lower. Therefore, she was kept monitored and 2 units of blood transfusing given. Her hemoglobin is up to 10 now blood pressures are stable and she is feeling a little lower abdominal cramping but otherwise no significant abdominal pain. 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
[2022-06-05 16:30] LABS: Glucose Point of Care 121 mg/dl (65-105)
[2022-06-05] MEDS: MAGNESIUM OXIDE 400 MG TABLET PO (20:35)
[2022-06-05] MEDS: MAGNESIUM SULF 4 GM/WATER100ML 4 GM/100 ML BAG IVPB (22:27)
[2022-06-05 23:39] LABS: Glucose Point of Care 181 mg/dl (65-105)
[2022-06-05] MEDS: ACETAMINOPHEN 325 MG TABLET 650 MG PO (23:58)
[2022-06-06] VITALS (9 sets, daily range): BP systolic 103–108; BP diastolic 52–61; PULSE 88–114; RESP 14–20; TEMP 37.1–37.7; O2SAT 90–94
[2022-06-06] MEDS: HYDROcodone/acetaminophen (*CRX) 10-325 MG TABLET 1 TAB PO ×3 (02:39→16:06)
[2022-06-06 06:05] LABS: Basophils Absolute Auto 0.1 K/mm3 (0.0-0.1); Eosinophils Absolute Auto 0.6 K/mm3 (0-0.3); Eosinophils Percent Auto 7.9 % (0-4.4); Hematocrit 29.9 % (37.0-47.0); Hemoglobin 9.9 g/dL (12.0-15.0); Immature Granulocyte Absolute 0.03 K/mm3 (0.00-0.031); Immature Granulocyte Percent A 0.4 % (0-0.5); Immature Platelet Fraction Pct 1.2 % (0.9-11.2); Lymphocytes Percent Auto 12.6 % (18.3-44.2); Mean Corpuscular HGB Conc 33.1 g/dl (32-36); Mean Corpuscular Hemoglobin 30.1 pg (26-34); Mean Corpuscular Volume 90.9 fl (80-100); Mean Platelet Volume 9.4 fl (7.4-10.4); Monocytes Absolute Auto 1.6 K/mm3 (0.1-0.6); Monocytes Percent Auto 21.9 % (2.6-8.5); Neutrophils Percent Auto 56.2 % (45.5-73.1); Platelet Count Result 82 k/mm3 (150-375); Red Blood Count 3.29 M/mm3 (4.2-5.4); Red Cell Distribution Width 16.5 % (11.5-14.5); White Blood Count 7.1 K/mm3 (4.5-10.0)
[2022-06-06 06:24] LABS: Alanine Aminotransferase 21 U/L (6-35); Albumin Level 3.1 g/dL (3.5-5.1); Alkaline Phosphatase 57 U/L (38-126); Anion Gap 10 mmol/L (8-16); Aspartate Amino Transferase 40 U/L (14-36); Bilirubin,Total 0.3 mg/dL (0.2-1.3); Blood Urea Nitrogen 10 mg/dL (7-17); Calcium 8.1 mg/dL (8.4-10.2); Carbon Dioxide 23 mmol/L (22-30); Chloride 106 mmol/L (98-107); Estimated CRCL calculation 86 ml/min; Estimated Glomerular Filt Rate > 60; Glucose 147 mg/dL (65-110); Magnesium 1.7 mg/dL (1.6-2.3); Potassium 3.7 mmol/L (3.4-5.0); Sodium 139 mmol/L (137-145)
[2022-06-06] MEDS: CENTRAL LINE FLUSH 10 ML IV PUSH ×2 (06:48→16:08)
[2022-06-06 06:58] LABS: Platelet Estimate Decreased (Adequate); Poikilocytosis 1+ (NORMAL)
[2022-06-06 06:59] LABS: Schistocytes None Seen (NORMAL); Tear Drop Cells 1+ (NORMAL)
--- NOTE | 2022-06-06 08:29 | PM.IMPN ---
Progress Note: A&P Assessment and Plan (1) Nontraumatic hemorrhagic shock: Code(s): R57.8 - Other shock Status: Acute Assessment and Plan: Resolved, monitor (2) Retroperitoneal hematoma: Code(s): K66.1 - Hemoperitoneum Status: Ruled-out Assessment and Plan: Status post hysteroscopy, likely due to Xarelto chronic treatment, even though this was held 2 days prior to procedure Unsure when it will be safe to restart Xarelto due to large pelvic hematoma, will likely need to d/c on no a/c and have outpatient OBGYN/PCP follow with imaging to confirm resolution prior to restarting. (3) Status post hysteroscopy: Code(s): Z98.890 - Other specified postprocedural states Status: Acute Assessment and Plan: Postop care provided by product marketing executive (4) Acute on chronic anemia: Code(s): D64.9 - Anemia, unspecified Status: Acute Assessment and Plan: Hemoglobin down to 9.9 today, continue to monitor Recheck pending later this afternoon again at 2pm (5) Post-menopausal bleeding: Code(s): N95.0 - Postmenopausal bleeding Status: Acute Assessment and Plan: Postop day 2 from hysteroscopy (6) Type 2 diabetes mellitus without complications: Qualifiers: Diabetes mellitus residential insulin use: without termite exterminator helper use Qualified Code(s): E11.9 - Type 2 diabetes mellitus without complications Code(s): E11.9 - Type 2 diabetes mellitus without complications Status: Acute Assessment and Plan: Accu-Cheks plus sliding scale insulin ordered A1c is 6.9 (7) DVT (deep venous thrombosis): Onset Date: ~07/2021 Code(s): I82.409 - Acute embolism and thrombosis of unspecified deep veins of unspecified lower extremity Status: Acute Assessment and Plan: Patient was diagnosed with bilateral lower extremity DVTs likely provoked from her breast cancer, she was started on Xarelto in July 2021, plan was to continue this until she completed treatment for her cancer, however, in light of the pelvic hematoma, I would recommend discharging patient off Xarelto and not reinitiating it at this time until pelvic hematoma noted to be reabsorbed Plan The patient developed hemorrhagic shock status post hysteroscopy due to right large retroperitoneal hematoma resulting in acute on chronic anemia. Patient's blood pressures improved after 3 units of packed red blood cells. product marketing executive came in and re-evaluated the patient. The patient's abdomen exam remains benign. After appropriate blood transfusion patient's hemoglobin improved to greater than 9. Blood pressures are now greater than 100 systolic. The patient's anemia is likely multifactorial due to recent chemotherapy administration and iron deficiency anemia. Iron studies came back not terrible, will start oral iron and hold off in IV infusion, B12 WNL. Patient will be stable for discharge from the hospitalist standpoint if the recheck at 2:00 p.m. is stable. Will defer final discharge plan to primary service. DVT prophylaxis with SCDs GI prophylaxis not indicated Code status full code Subjective Date/time seen: 06/06/22 08:29 Interval history: No overnight events noted. No chest pain or shortness of breath. No nausea, vomiting or diarrhea. No fevers or chills. Review of Systems Review of Systems: 12 point review of systems was assessed and was negative except as noted in the HPI Exam Narrative: General: No acute distress, alert and oriented per baseline HEENT: Atraumatic, normocephalic, mucous membranes moist CV: Regular rate and rhythm, S1, S2 Lungs: Clear to auscultation bilaterally, no rales or crackles noted, no wheezes, good air entry Abdomen: Soft, nontender, nondistended Extremities: Normal to inspection Skin: No rashes noted, no lesions or wounds seen Psych: Euthymic, normal affect Objective Data Vital Signs Vital Signs: Vital Signs - 24 hr 05/22
[2022-06-06] MEDS: FERROUS SULFATE 324 MG TABLET PO (09:05)
[2022-06-06] MEDS: MAGNESIUM OXIDE 400 MG TABLET PO (09:05)
[2022-06-06] MEDS: metFORMIN HCL 500 MG TABLET 1000 MG PO (09:06)
[2022-06-06] MEDS: LORATADINE 10 MG TABLET PO (09:07)
[2022-06-06] MEDS: SIMVASTATIN 20 MG TABLET PO (09:07)
[2022-06-06] MEDS: allopurinoL 300 MG TABLET PO (09:07)
--- NOTE | 2022-06-06 09:29 | PM.GYNPNOP ---
OTR TANKER TRUCK DRIVER - A/P Postoperative Procedures: Procedures Operation Date: 06/04/22 14:30 Actual Procedure Side Surgeon p Hysteroscopy Dilation and Curettage Manish Lantigua MD Postoperative day: 2 Postoperative status: doing well and anemia Postoperative plan: discharge Time Spent With Patient Time: Total time spent is greater than 50% in coordination of care (as documented) at patient's floor/unit and/or counseling patient: has appt with amena tuesday. ill see her next week Time with patient: less than 15 minutes OTR TANKER TRUCK DRIVER- PN:Subj Post-Op Subjective Date/time seen: 06/06/22 09:29 Interval history: No overnight events noted. No chest pain or shortness of breath. No nausea, vomiting or diarrhea. No fevers or chills. Patient is very upset that she is still NPO and wants to know what the plan is. Subjective: patient reports feeling better, patient has no complaints, patient desires discharge, pain is well controlled and patient is tolerating oral intake Exam Const: General: cooperative, healthy appearing and comfortable Orientation/consciousness: oriented to person, oriented to place and oriented to time HENMT: Head: normal to inspection Resp: Effort & Inspection: normal respiratory effort GI: Inspection: normal to inspection OTR TANKER TRUCK DRIVER - PN: Obj Data Vital Signs Vital Signs: Vital Signs - 24 hr 06/05/22 12:00 06/05/22 16:00 06/05/22 10:00 Temperature 97.4 F L 98 F Pulse Rate 90 84 89 Respiratory Rate 18 16 Blood Pressure 136/72 106/60 Pulse Oximetry 97 92 Oxygen Delivery 06/05/22 12:00 06/05/22 16:00 06/05/22 12:00 Temperature Pulse Rate 87 88 88 Respiratory Rate 16 Blood Pressure Pulse Oximetry 92 Oxygen Delivery Room Air 06/05/22 16:00 06/05/22 18:00 06/05/22 20:00 Temperature 98.8 F Pulse Rate 88 93 94 Respiratory Rate 16 18 Blood Pressure 109/56 L Pulse Oximetry 92 90 Oxygen Delivery Room Air 06/06/22 00:00 06/06/22 04:00 06/05/22 20:00 Temperature 99.9 F H 99.0 F Pulse Rate 104 H 114 H Respiratory Rate 20 18 Blood Pressure 108/52 L 103/58 L Pulse Oximetry 91 92 Oxygen Delivery Room Air 06/06/22 00:00 06/05/22 20:00 06/05/22 22:00 Temperature Pulse Rate 97 97 Respiratory Rate Blood Pressure Pulse Oximetry Oxygen Delivery Room Air 06/06/22 00:00 06/06/22 02:00 06/06/22 04:00 Temperature Pulse Rate 111 H 104 H 106 H Respiratory Rate Blood Pressure Pulse Oximetry Oxygen Delivery 06/06/22 06:00 06/06/22 04:00 06/06/22 07:54 Temperature 98.7 F Pulse Rate 96 99 Respiratory Rate 14 Blood Pressure 108/54 L Pulse Oximetry 90 Oxygen Delivery Room Air 06/06/22 08:00 Temperature Pulse Rate 95 Respiratory Rate Blood Pressure Pulse Oximetry Oxygen Delivery Intake/Output Intake/Output: Intake & Output 06/03/22 06/04/22 06/05/22 06/06/22 23:59 23:59 23:59 23:59 Intake Total 2925 2570 Output Total 250 1125 1500 Balance 2675 1445 -1500 Meds/Results Medications: Active Medications Generic Name Dose Route Start Last Admin Trade Name Freq PRN Reason Stop Dose Admin Acetaminophen 650 mg 06/05/22 23:40 06/05/22 23:58 Acetaminophen 325 Mg Tablet PO 650 mg Q6H PRN Administration Mild Pain (1-3) or Fever Hydrocodone Bitart/Acetaminophen 1 tab 06/04/22 18:23 Hydrocodone/Acetaminophen (*Crx) 5-325 Mg Tablet PO Q3H PRN Pain Rated 5 or Less Hydrocodone Bitart/Acetaminophen 1 tab 06/04/22 18:23 06/06/22 09:12 Hydrocodone/Acetaminophen (*Crx) 10-325 Mg Tablet PO 1 tab Q3H PRN Administration Pain Rated 6 or Greater Allopurinol 300 mg 06/05/22 08:00 06/06/22 09:07 Allopurinol 300 Mg Tablet PO 300 mg DAILY@0800 MAXIM Administration Dextrose 12.5 gm 06/05/22 04:46 Dextrose 50% 25 Gm/50 Ml Syringe IV PUSH PRN PRN Hypoglycemia Protocol Ferrous Sulfate 324 mg 06/06/22 08:35 06/06/22 09:05 Olga
--- NOTE | 2022-06-06 10:01 | PM.PNGS ---
Progress Note: A&P Assessment and Plan (1) Pelvic hematoma in female: Code(s): N94.89 - Other specified conditions associated with female genital organs and menstrual cycle Status: Acute Assessment and Plan: Hemodynamic stable, H&H stable No need for surgical intervention at this time. Because of her low platelets consider stain off all meds that apply that platelet function. She think she can probably do okay for 1 week without her diclofenac. Has appointment with PCP end of this week and will discuss Xarelto further than. Follow-up with Dr. Edouard. No need to follow up with General surgery unless further problems occur. (2) Nontraumatic hemorrhagic shock: Code(s): R57.8 - Other shock Status: Acute Assessment and Plan: Resolved with blood transfusion and fluids. (3) Acute on chronic anemia: Code(s): D64.9 - Anemia, unspecified Status: Acute Assessment and Plan: Will follow-up with Hematology-Oncology in view of her continuing treatment of breast cancer may need iron infusions or other treatment. Subjective Subjective Date/Time Seen: 06/06/22 10:01 Patient is still having some lower abdominal cramping but otherwise asymptomatic from her intraperitoneal bleed. H&H stable overnight per nursing. Patient states she does not having nausea. Review of Systems Review of Systems: All systems reviewed & are unremarkable except as noted in HPI and below Constitutional: Constitutional: Reports as per HPI, Denies chills and Denies fever(s) Cardiovascular: Cardiovascular: Denies chest pain and Denies dyspnea Respiratory: Respiratory: Reports no additional respiratory complaints and Denies dyspnea Gastrointestinal: Gastrointestinal: Reports as per HPI and Denies bloating Musculoskeletal: Musculoskeletal: Reports no additional musculoskeletal complaints Neurologic: Denies memory loss Psychiatric: Psychiatric: Denies anxiety and Denies memory loss Exam Const: General: cooperative, comfortable, alert and awake Orientation/consciousness: patient oriented x3 HENMT: Head: normal to inspection Mouth: Yes moist mucous membranes Eyes: Sclera: sclerae normal Pupils: Equal, round and reactive pupils present GI: Inspection: obesity and scar GI Palp: Yes abdominal tenderness (Mild suprapubic area) and Yes Soft to palpation Auscultation: normal bowel sounds Neuro: General: patient oriented x3 Cranial nerves: Yes Equal, round and reactive pupils present Objective Data Vital Signs Vital Signs: Vital Signs - 24 hr 06/05/22 12:00 06/05/22 16:00 06/05/22 12:00 Temperature 36.3 C L 36.6 C Pulse Rate 90 84 87 Respiratory Rate 18 16 Blood Pressure 136/72 106/60 Pulse Oximetry 97 92 Oxygen Delivery 06/05/22 16:00 06/05/22 12:00 06/05/22 16:00 Temperature Pulse Rate 88 88 88 Respiratory Rate 16 16 Blood Pressure Pulse Oximetry 92 92 Oxygen Delivery Room Air Room Air 06/05/22 18:00 06/05/22 20:00 06/06/22 00:00 Temperature 37.1 C 37.7 C H Pulse Rate 93 94 104 H Respiratory Rate 18 20 Blood Pressure 109/56 L 108/52 L Pulse Oximetry 90 91 Oxygen Delivery 06/06/22 04:00 06/05/22 20:00 06/06/22 00:00 Temperature 37.2 C Pulse Rate 114 H Respiratory Rate 18 Blood Pressure 103/58 L Pulse Oximetry 92 Oxygen Delivery Room Air Room Air 06/05/22 20:00 06/05/22 22:00 06/06/22 00:00 Temperature Pulse Rate 97 97 111 H Respiratory Rate Blood Pressure Pulse Oximetry Oxygen Delivery 06/06/22 02:00 06/06/22 04:00 06/06/22 06:00 Temperature Pulse Rate 104 H 106 H 96 Respiratory Rate Blood Pressure Pulse Oximetry Oxygen Delivery 06/06/22 04:00 06/06/22 07:54 06/06/22 08:00 Temperature 37.1 C Pulse Rate 99 95 Respiratory Rate 14 Blood Pressure 108/54 L Pulse Oximetry 90 Oxygen Delivery Room Air Intake/Output Intake/Output: Intake & Output 06/03/22
--- NOTE | 2022-06-06 10:21 | PM.DS ---
DS: Admitting Diagnosis Discharge Date June 06, 2022 Admitting Diagnosis Acute blood loss anemia DS: Discharge Diagnosis Discharge Diagnosis (1) Nontraumatic hemorrhagic shock: Code(s): R57.8 - Other shock Status: Acute Assessment and Plan: Resolved, monitor (2) Retroperitoneal hematoma: Code(s): K66.1 - Hemoperitoneum Status: Ruled-out Assessment and Plan: Status post hysteroscopy, likely due to Xarelto chronic treatment, even though this was held 2 days prior to procedure Unsure when it will be safe to restart Xarelto due to large pelvic hematoma, will likely need to d/c on no a/c and have outpatient OBGYN/PCP follow with imaging to confirm resolution prior to restarting. (3) Status post hysteroscopy: Code(s): Z98.890 - Other specified postprocedural states Status: Acute Assessment and Plan: Postop care provided by filling operator (4) Acute on chronic anemia: Code(s): D64.9 - Anemia, unspecified Status: Acute Assessment and Plan: Hemoglobin down to 9.9 today, continue to monitor Recheck pending later this afternoon again at 2pm (5) Post-menopausal bleeding: Code(s): N95.0 - Postmenopausal bleeding Status: Acute Assessment and Plan: Postop day 2 from hysteroscopy (6) Type 2 diabetes mellitus without complications: Qualifiers: Diabetes mellitus fci insulin use: without terminal carman use Qualified Code(s): E11.9 - Type 2 diabetes mellitus without complications Code(s): E11.9 - Type 2 diabetes mellitus without complications Status: Acute Assessment and Plan: Accu-Cheks plus sliding scale insulin ordered A1c is 6.9 (7) DVT (deep venous thrombosis): Onset Date: ~07/2021 Code(s): I82.409 - Acute embolism and thrombosis of unspecified deep veins of unspecified lower extremity Status: Acute Assessment and Plan: Patient was diagnosed with bilateral lower extremity DVTs likely provoked from her breast cancer, she was started on Xarelto in July 2021, plan was to continue this until she completed treatment for her cancer, however, in light of the pelvic hematoma, I would recommend discharging patient off Xarelto and not reinitiating it at this time until pelvic hematoma noted to be reabsorbed Plan The patient developed hemorrhagic shock status post hysteroscopy due to right large retroperitoneal hematoma resulting in acute on chronic anemia. Patient's blood pressures improved after 3 units of packed red blood cells. filling operator came in and re-evaluated the patient. The patient's abdomen exam remains benign. After appropriate blood transfusion patient's hemoglobin improved to greater than 9. Blood pressures are now greater than 100 systolic. The patient's anemia is likely multifactorial due to recent chemotherapy administration and iron deficiency anemia. Iron studies came back not terrible, will start oral iron and hold off in IV infusion, B12 WNL. DVT prophylaxis with SCDs GI prophylaxis not indicated Code status full code DS: Summary Hospital Course Hospital Course: 66 year old female with a past medical history of type 2 diabetes mellitus, vitamin-D deficiency, hypertension, hyperlipidemia and invasive ductal carcinoma of the left breast with 16 positive lymph nodes who who presented to the hospital for elective hysteroscopy due to dysfunctional uterine bleeding.? The patient reports that in July 2021 she had a long hospitalization at which time she was immobile in developed right lower extremity DVT and had an episode of paroxysmal atrial fibrillation.? The since that time her DVT has resolved and she has not had a recurrence of her atrial fibrillation but she has remained on anticoagulation with Xarelto.? Since she is started on Xarelto she was having some dysfunctional is uterine bleeding which elicited today's procedure.? She reports that her primary care physician told her
[2022-06-06 12:54] LABS: Glucose Point of Care 225 mg/dl (65-105)
[2022-06-06] MEDS: INSULIN ASPART (*BKC) 100 UNITS/ML SUB-Q (13:19)
[2022-06-06 14:18] LABS: Hematocrit 30.1 % (37.0-47.0); Hemoglobin 9.7 g/dL (12.0-15.0)
--- NOTE | 2022-06-07 07:38 | PM.DS ---
DS: Admitting Diagnosis Discharge Date 06/06/22 Admitting Diagnosis Postmenopausal bleeding DS: Discharge Diagnosis Discharge Diagnosis (1) Postmenopausal bleeding: Code(s): N95.0 - Postmenopausal bleeding Status: Acute (2) Anemia: Code(s): D64.9 - Anemia, unspecified Status: Acute DS: Summary Hospital Course Reason for hospitalization: Patient was admitted for outpatient hysteroscopy and dilatation curettage secondary to postmenopausal bleeding Hospital Course: The patient was admitted underwent hysteroscopy dilatation curettage. The procedure was complicated by postoperative bleeding. She dropped down to hemoglobin 5.7 from 8.8 a week prior. She received 4units of blood and was watched closely. Her blood counts remained stable and she was discharged home on a regular diet. Significantly she had been on Xarelto but had been on that for more than 6 months and was the systolic to this point. She is following up with Dr. Fish this week and he will make a decision whether to restart. Time Spent with Patient Time attestation: Total time spent providing and/or coordinating discharge services: Exam Const: General: cooperative, healthy appearing and comfortable Nutritional Appearance: overweight Orientation/consciousness: oriented to person, oriented to place and oriented to time HENMT: Head: normal to inspection Resp: Effort & Inspection: normal respiratory effort Cardio: Rate: regular rate Rhythm: regular rhythm Heart sounds: S1 normal heart sound present and S2 normal heart sound present GI: Inspection: normal to inspection DS: Data Data Completed and Pending Pending studies at discharge: Pending at discharge 06/04/22 14:44 Surgical [PTH] Routine Labs on day of discharge: Labs from last 24 hours 06/06/22 06/06/22 14:13 12:40 Hgb 9.7 L Hct 30.1 L POC Capillary Glucose 225 H Discharge Plan Discharge Attending physician on discharge: Manish Maxwell Consulting providers: Kathrine Mitchell ; Britton Don Discharging Clinician: Kady Rodriguez Patient Disposition: Home, Self-Care Activity: other - see discharge instructions Diet: as tolerated Discharge Instructions: Some Complications to Watch for: ? Excessive vaginal drainage (more than one pad an hour). Additional Instructions: ? Expect some vaginal spotting for 2-4 days. ? Nothing vaginally (i.e. douching, intercourse, tampons) until follow up visit. . Do not take Motrin or any Ibuprofen related drugs becuase of low platelets . Your Xarelto has been stopped for now. . You may take tylenol or the prescribed pain medication . Do not jog or do any tenuous activities until your Dr say so Stand Alone Forms: General Discharge Information, General Discharge Instructions Follow-up/Referrals: Manish Maxwell MD [Physician] - Discharge Medications: New hydrocodone-acetaminophen 5-325 mg tablet 1 tablet PO Q4H PRN (Reason: pain) Qty: 14 0RF Continued metoprolol succinate 50 mg Tablet Extended Release 24 Hr 50 mg PO DAILY Rx Instructions: TAKES IN AM hydrocodone-acetaminophen 5-325 mg tablet 1 tablet PO Q6H PRN (Reason: pain) Qty: 30 0RF loratadine 10 mg tablet 10 mg PO DAILY cholecalciferol (vitamin D3) 1,250 mcg (50,000 unit) capsule 50,000 unit PO .COMPLEX Qty: 26 3RF Rx Instructions: 50,000 units PO q 2 weeks; diphenoxylate-atropine [Lomotil] 2.5-0.025 mg tablet 1 tablet PO QID PRN (Reason: diarrhea) Qty: 60 0RF silver sulfadiazine 1 % cream 1 applic TOPICAL BID PRN (Reason: Wound Healing) Rx Instructions: apply a 1.5 mm thickness to open area in axilla allopurinol 300 mg tablet 300 mg PO DAILY omega-3 fatty acids-vitamin E 1,000 mg Capsule 1 cap PO DAILY triamcinolone acetonide 0.1 % ointment See Rx Instructions .ROUTE .COMPLEX Qty: 80 0RF Dose Instruction: APPLY
== END 2022-06-06 16:15 | disposition home or self-care (01) ==
LOC: ANHSURGERY 10:58 → ANHIMU 10:58
PROVIDERS: Anesthesiology; Internal Medicine; Student in an Organized Health Care Education/Training Program; Admitting Provider Obstetrics & Gynecology; PCP Family Medicine; Visit Provider Obstetrics & Gynecology
PROC: 0U5B8ZZ Destruction of Endometrium, Via Natural or Artificial Opening Endoscopic (ICD-10-PCS; CPT 58563; principal; 2022-06-04 14:30)
DX: R57.8 Other shock (principal); K66.1 Hemoperitoneum; Z98.890 Other specified postprocedural states; D64.9 Anemia, unspecified; N95.0 Postmenopausal bleeding; E11.9 Type 2 diabetes mellitus without complications; I95.9 Hypotension, unspecified; N94.89 Other specified conditions associated with female genital organs and menstrual cycle; E55.9 Vitamin D deficiency, unspecified; I10 Essential (primary) hypertension; E78.2 Mixed hyperlipidemia; I48.91 Unspecified atrial fibrillation; Z92.21 Personal history of antineoplastic chemotherapy; D50.9 Iron deficiency anemia, unspecified; E66.9 Obesity, unspecified; Z68.36 Body mass index [BMI] 36.0-36.9, adult; M81.0 Age-related osteoporosis without current pathological fracture; Z85.3 Personal history of malignant neoplasm of breast; Z86.718 Personal history of other venous thrombosis and embolism; Z79.52 Long term (current) use of systemic steroids; Z79.891 Long term (current) use of opiate analgesic; Z79.84 Long term (current) use of oral hypoglycemic drugs; Z79.01 Long term (current) use of anticoagulants; Z79.899 Other long term (current) drug therapy
CPT/HCPCS: 58558; 36415; 36430; 74176; 76856; 80048; 80053; 82607; 82728; 82746; 82948; 83540; 83550; 83735; 85014; 85018; 85025; 85055; 85610; 85730; 86850; 86900; 86901; 86920; 88305; A9270; G0378; J1642; J1815; J1885; J2250; J2405; J2704; J3010; J3475; J7030; J7050; J7120; P9016

== ENCOUNTER 2022-10-10 10:20 | Emergency (ER) | payer MEDICARE, SELFPAY ==
[2022-10-10] VITALS (18 sets, daily range): BP systolic 89–135; BP diastolic 52–77; PULSE 72–96; RESP 10–30; TEMP 36.6; O2SAT 84–100
--- NOTE | ~2022-10-10 | XR_ITS ---
EXAM: XR hip RT min 3V w AP pelvis DATE: 10/10/2022 15:53 HISTORY: pain R lateral hip/thigh, no inj, Hx breast cancer . COMPARISON: None available. FINDINGS: Decreased mineralization. No fracture or dislocation. No lytic or blastic lesion. Degenera tive change in lumbar spine, bilateral hips, and symphysis pubis. No erosion or periosteal change. So ft tissues within normal limits. IMPRESSION: No acute osseous finding in the pelvis or right hip. Reviewed, dictated and finalized at location K. OLOGY TECH
--- NOTE | ~2022-10-10 | US_ITS ---
EXAMINATION:US venous doppler LE RT INDICATION:Thigh pain. History of DVT. TECHNIQUE: Multiple grayscale, color flow and Doppler images of the right lower extremity deep venous systems were obtained and reviewed. COMPARISON:09/10/2008 FINDINGS: The common femoral, superficial femoral and popliteal veins demonstrate normal respiratory variation, augmentation and compressibility. Color flow is also seen within the posterior tibial, pe roneal, greater saphenous and profunda veins. IMPRESSION: 1: No lower extremity deep venous thrombosis. Reviewed, dictated and finalized at location A. BILITY REPRESENTATIVE
[2022-10-10 10:44] LABS: Basophils Absolute Auto 0.1 K/mm3 (0.0-0.1); Basophils Percent Auto 1.8 % (0.2-1.2); Eosinophils Absolute Auto 0.7 K/mm3 (0-0.3); Hemoglobin 12.7 g/dL (12.0-15.0); Immature Granulocyte Absolute 0.02 K/mm3 (0.00-0.031); Immature Granulocyte Percent A 0.4 % (0-0.5); Immature Platelet Fraction Pct 1.8 % (0.9-11.2); Lymphocytes Percent Auto 18.1 % (18.3-44.2); Mean Corpuscular HGB Conc 33.4 g/dl (32-36); Mean Corpuscular Hemoglobin 31.7 pg (26-34); Mean Corpuscular Volume 94.8 fl (80-100); Mean Platelet Volume 8.8 fl (7.4-10.4); Monocytes Absolute Auto 0.9 K/mm3 (0.1-0.6); Monocytes Percent Auto 16.6 % (2.6-8.5); Neutrophils Absolute Auto 2.8 K/mm3 (1.3-6.7); Neutrophils Percent Auto 50.1 % (45.5-73.1); Platelet Count Result 78 k/mm3 (150-375); Red Blood Count 4.01 M/mm3 (4.2-5.4); Red Cell Distribution Width 14.1 % (11.5-14.5); White Blood Count 5.5 K/mm3 (4.5-10.0)
[2022-10-10 10:54] LABS: Alanine Aminotransferase 41 U/L (6-35); Albumin Level 4.3 g/dL (3.5-5.1); Alkaline Phosphatase 103 U/L (38-126); Anion Gap 8 mmol/L (8-16); Aspartate Amino Transferase 76 U/L (14-36); Bilirubin,Total 0.7 mg/dL (0.2-1.3); Blood Urea Nitrogen 8 mg/dL (7-17); Calcium 9.2 mg/dL (8.4-10.2); Carbon Dioxide 28 mmol/L (22-30); Chloride 98 mmol/L (98-107); Estimated CRCL calculation 89 ml/min; Estimated Glomerular Filt Rate > 60; Glucose 174 mg/dL (65-110); Lipase 656 U/L (23-300); Potassium 3.1 mmol/L (3.4-5.0); Sodium 134 mmol/L (137-145)
[2022-10-10 13:21] LABS: Appearance Urine Clear (Clear); Bilirubin Urine 1+ (Negative); Blood Urine Trace-intact (Negative); Color Urine Yellow (Yellow); Glucose Urine UA Negative (Negative); Ketones Urine Negative (Negative); Leukocyte Esterase Ur Trace LEU/UL (Negative); Nitrate Urine Negative (Negative); Protein Urine 1+ mg/dL (Negative); Specific Grav Ur >= 1.030 (1.001-1.035); Urobilinogen Urine 0.2 mg/dL (<2.0)
[2022-10-10 13:48] LABS: Mucus Urine Rare /lpf; Squamous Epithelial Cell Urine Occasional /hpf (Few); WBC Clumps Urine Present /HPF; WBC Urine 31-50 /hpf
[2022-10-10 13:53] LABS: Add Urine Microscopic? YES
--- NOTE | 2022-10-10 13:56 | ED.GENADULT ---
HPI - General Adult General Chief complaint: Extremity Injury, Lower Stated complaint: right flank pain Time Seen by Provider: 10/10/22 13:13 Source: patient Mode of arrival: ambulatory Limitations: no limitations History of Present Illness HPI narrative: Patient is a 67 y/o female who presents to the ED with c/o R lateral thigh pain. Patient reports having intermittent pain in her right lateral thigh since . The pain has become more severe and persistent yesterday into today. She has been taking leftover [place] at home with minimal relief. Patient denies any injury or fall. She is able to ambulate. Denies significant worsening of pain with ambulation. She does note a history of DVT in her right leg in the past for which she took Xarelto for 6 months. Not currently on any blood thinners. Denies any swelling or redness of leg. Denies abdominal or back pain. States pain does not seem to be radiating from her back. Denies incontinence, numbness, weakness of leg. Patient recently finished chemotherapy for breast cancer. Related Data Home Medications Medication Instructions Recorded Confirmed loratadine 10 mg tablet 10 mg PO DAILY 07/08/20 06/04/22 diclofenac sodium 75 mg 75 mg PO BID 05/27/22 06/04/22 tablet,delayed release silver sulfadiazine 1 % topical 1 applic topical BID PRN Wound 05/27/22 05/27/22 cream Healing Allergies Allergy/AdvReac Type Severity Reaction Status Date / Time exenatide Allergy Intermediate Itching Verified 10/10/22 10:40 latex Allergy Intermediate REDNESS/SKIN Verified 10/10/22 10:40 IRRITATION morphine Allergy Intermediate Nausea and Verified 10/10/22 10:40 Vomiting Penicillins Allergy Intermediate Hives Verified 10/10/22 10:40 grass pollen AdvReac Mild SINUS Verified 10/10/22 10:40 PROBLEMS Review of Systems Review of Systems: CONSTITUTIONAL: Denies fever, chills, or sweats. CARDIOVASCULAR: Denies chest pain. RESPIRATORY: Denies dyspnea. GASTROINTESTINAL: Denies incontinence, abdominal pain, nausea, vomiting. MUSCULOSKELETAL: See HPI. NEUROLOGIC: See HPI. All systems reviewed & are unremarkable except as noted in HPI and below PMFSH Past Medical History Medical History Arthritis of shoulder region, 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d by chemotherapy in immobility; right lower extremity Gout History of kidney stones Invasive ductal carcinoma of left breast (~02/2021) Irritable bowel syndrome with diarrhea Low back pain Mixed hyperlipidemia Mixed stress and urge urinary incontinence Obesity Osteoporosis Paroxysmal atrial fibrillation Primary hyperparathyroidism Sacroiliac joint dysfunction of both sides Type 2 diabetes mellitus without complications Vitamin D deficiency Surgical History Surgical History History of X1 followed by History of endometrial ablation History of parathyroidectomy (~2009) History of spinal fusion History of tonsillectomy and adenoidectomy Status post hysteroscopy Status post left breast lumpectomy September 2021 Family History Family History Father Diabetes mellitus Hypertension Family history of elevated blood lipids Arthritis, rheumatoid Heart disease, Onset Age: 69 Due to lupus SLE (systemic lupus erythematosus) Sibling Lupus 1 brother and 1 sister Daughter Multiple sclerosis Mother , Age 82 Natural Social History Social History Social History: She lives in [place] with her of 43 years. 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 She used to drink alcohol on occasion in in mode
[2022-10-10] MEDS: diazePAM INJ (*CRX) 10 MG/2 ML SYRINGE 2 MG IV PUSH (14:27)
[2022-10-10] MEDS: KETOROLAC 30 MG/ML VIAL (*BKC) IV PUSH (14:28)
[2022-10-10] MEDS: POTASSIUM CHLORIDE 20 MEQ TABLET 40 MEQ PO (16:04)
[2022-10-10] MEDS: MAGNESIUM SULF 2 GM/WATER 50ML 2 GM/50 ML BAG IVPB (17:22)
--- NOTE | 2022-10-20 17:43 | PC.NURSE ---
LATE ENTRY This note is being entered to document information to the patient's record. The following information was omitted on [10/10/21], by [kevin camargo]. Mag started at 1722 ended 1805
== END 2022-10-10 18:16 | disposition home or self-care (01) ==
PROVIDERS: Emergency Medicine; Emergency Provider Physician Assistant; PCP Family Medicine
DX: M79.651 Pain in right thigh (principal); N30.01 Acute cystitis with hematuria; E87.6 Hypokalemia; E83.42 Hypomagnesemia; R74.8 Abnormal levels of other serum enzymes; I48.0 Paroxysmal atrial fibrillation; E11.9 Type 2 diabetes mellitus without complications; E78.2 Mixed hyperlipidemia; E55.9 Vitamin D deficiency, unspecified; N39.46 Mixed incontinence; D69.6 Thrombocytopenia, unspecified; K58.0 Irritable bowel syndrome with diarrhea; E89.2 Postprocedural hypoparathyroidism; M10.9 Gout, unspecified; M81.0 Age-related osteoporosis without current pathological fracture; M19.011 Primary osteoarthritis, right shoulder; E66.9 Obesity, unspecified; Z68.28 Body mass index [BMI] 28.0-28.9, adult; Z85.3 Personal history of malignant neoplasm of breast; Z86.718 Personal history of other venous thrombosis and embolism; Z87.442 Personal history of urinary calculi; Z98.1 Arthrodesis status
CPT/HCPCS: 36415; 73502; 80053; 81001; 83690; 83735; 85025; 85055; 87086; 87088; 93971; 96365; 96375; 99284; A9270; J1642; J1885; J3360; J3475

== ENCOUNTER → 2023-03-04 08:17 | Outpatient (CLI) | payer MEDICARE, SELFPAY ==
--- NOTE | ~2023-03-04 | MR_ITS ---
MRI of the brain Clinical History: Ataxia Technique: Axial and sagittal T1-weighted images were acquired. These were followed by axial T2-weigh jez, diffusion weighted, gradient, and FLAIR images. Thin cut coronal T1-weighted and T2-weighted jeannette ges, and thin cut axial T1-weighted images, were obtained through the internal auditory canals. Findings: There is no acute infarct, intracranial hemorrhage, or mass lesion. There are minimal chron ic white matter changes in the periventricular white matter bilaterally. Ventricles and subarachnoid spaces are unremarkable. Orbits are unremarkable. Paranasal sinuses and m astoid air cells are clear. Sagittal midline structures are intact. No definite abnormality seen at the internal auditory canals or CP angle regions. IMPRESSION: Minimal chronic microvascular ischemic changes, otherwise unremarkable exam. Reviewed, dictated and finalized at location M.
== END ==
PROVIDERS: PCP Family Medicine; Visit Provider Family Medicine
DX: R27.0 Ataxia, unspecified (principal)
CPT/HCPCS: 70551

== ENCOUNTER 2023-10-04 10:39 | Inpatient (IN) | payer MEDICARE, SELFPAY ==
[2023-10-04] VITALS (69 sets, daily range): BP systolic 120–182; BP diastolic 86–139; PULSE 88–115; RESP 13–40; O2SAT 72–99
--- NOTE | ~2023-10-04 | US_ITS ---
EXAMINATION: US thoracentesis DATE: 10/05/2023 10:20 INDICATION: pleural effusion TECHNIQUE: The procedure and its risks, benefits, and alternatives were discussed with the patient. P otential risks discussed included bleeding, infection, and pneumothorax. The patient understood the r isks and agreed to proceed. The skin was prepped and draped in sterile fashion. 1% lidocaine was used for local anesthesia. Under ultrasound guidance, a 5 Fr catheter with trochar was advanced into the right pleural effusion. Fluid was aspirated. The catheter was removed, and a dressing was applied. Th ere were no immediate complications. FINDINGS: Ultrasound images demonstrate a right pleural effusion and the catheter within the fluid. IMPRESSION: 1. Successful ultrasound-guided thoracentesis yielding 650 mL of serosanguineous fluid. Reviewed, dictated and finalized at location A. NARY CARE UNIT NURSE IMPRESSION: 1. Successful ultrasound-guided thoracentesis yielding 650 mL of serosanguineo us fluid.
--- NOTE | ~2023-10-04 | XR_ITS ---
EXAMINATION: [id number] DATE: 10/10/2023 12:49 INDICATION: Shortness of breath. Status post right thoracentesis. TECHNIQUE: frontal and lateral views of the chest were obtained. COMPARISON: Chest radiograph dated 10/04/2023 FINDINGS: Interval decrease in size of a now small right pleural effusion with improved aeration in the right l wilmar. Unchanged small left pleural effusion. There are persistent dense airspace opacities in bilatera l lower lung zones with more patchy groundglass opacities in the left mid and upper lung zones consis tent with likely combination of atelectasis and pneumonia. No pneumothorax. Heart size is normal. Rig ht upper extremity peripherally inserted central venous catheter (PICC) tip at the caudal superior v cyndi cava superior vena cava. IMPRESSION: 1. Improved aeration the right lung with decreased now small right pleural effusion post thoracentesi s. 2. Unchanged small left pleural effusion. 3. Patchy opacities in the left mid and upper lung zones and more dense consolidation in the bilatera l lower lung zones likely representing combination of atelectasis and pneumonia. Reviewed, dictated and finalized at location A. MBLY STOCK SUPERVISOR IMPRESSION: 1. Improved aeration the right lung with decreased now small right pleural effu blaine post thoracentesis. 2. Unchanged small left pleural effusion. 3. Patchy opacities in the left mid and upper lung zones and more dense consoli dation in the bilateral lower lung zones likely representing combination of ate lectasis and pneumonia.
--- NOTE | ~2023-10-04 | US_ITS ---
EXAMINATION: US venous doppler [facility] DATE: 10/05/2023 14:00 INDICATION: Lower limb swelling. TECHNIQUE: Grayscale ultrasound images without and with compression and Doppler ultrasound images of the bilateral lower extremity veins were obtained. COMPARISON: Ultrasound 10/10/2022 FINDINGS: The visualized portions of right common femoral vein, profunda (deep) femoral vein, femoral vein, pop liteal vein, peroneal veins, posterior tibial veins, and greater saphenous vein outflow are patent. The visualized portions of left common femoral vein, profunda femoral vein, femoral vein, popliteal v ein, peroneal veins, posterior tibial veins, and greater saphenous vein outflow are patent. There is a moderate sized left Brandon's cyst. IMPRESSION: 1. No deep venous thrombosis. 2. Moderate sized left Brandon's cyst. Reviewed, dictated and finalized at location A. AGE PARENT
--- NOTE | ~2023-10-04 | US_ITS ---
EXAMINATION: US thoracentesis DATE: 10/10/2023 12:52 INDICATION: Shortness of breath TECHNIQUE: The procedure and its risks and benefits were discussed with the patient. Potential risks discussed included bleeding, infection, and pneumothorax. The patient understood the risks and agreed to proceed. The skin was prepped and draped in sterile fashion. 1% lidocaine was used for local anes thesia. Under ultrasound guidance, a 5 Fr catheter with trochar was advanced into the right pleural e ffusion. Fluid was aspirated. The catheter was removed, and a dressing was applied. There were no imm ediate complications. FINDINGS: Ultrasound images demonstrate a moderate-sized right pleural effusion and the catheter within the flu id. IMPRESSION: 1. Successful ultrasound-guided thoracentesis yielding 1000 mL of dark maroon-colored fluid. Reviewed, dictated and finalized at location A. ENT INTAKE REPRESENTATIVE IMPRESSION: 1. Successful ultrasound-guided thoracentesis yielding 1000 mL of dark maroon- colored fluid.
--- NOTE | ~2023-10-04 | XR_ITS ---
Portable chest x-ray Comparison: 10/08/2023 Clinical History: Right effusion Findings: Right-sided PICC line in place. Small bilateral pleural effusions are present. There is dis coid right basilar atelectasis. There is probable minimal pulmonary edema. Cardiomediastinal silhoue tte is stable. Bones and soft tissues are unremarkable. Impression: Mild pulmonary edema pattern with small bilateral pleural effusions and discoid right basilar atelect asis. Right-sided PICC line. Reviewed, dictated and finalized at location M. RADIAL DRILL PRESS SET UP OPERATOR Impression: Mild pulmonary edema pattern with small bilateral pleural effusions and discoid right basilar atelectasis. Right-sided PICC line.
--- NOTE | ~2023-10-04 | XR_ITS ---
XR chest 2V DATE: 10/04/2023 11:40 INDICATION: Cough, shortness of breath. Recent bronchitis. TECHNIQUE: AP and lateral views COMPARISON: 09/08/2012 AP chest FINDINGS: There is pulmonary vascular congestion and redistribution. There are bilateral pulmonary in filtrates which are more prominent centrally and in the lower lung zones. Edith B-lines suggest pulm onary resection of edema. Large right pleural effusion with associated compressive atelectasis and infiltrate in the right mid and lower lung zone. Small left pleural effusion is likely. Diffuse osteopenia. Posterior lumbar surgical fusion. IMPRESSION: Congestive heart failure, pulmonary edema, bilateral pleural effusions, particularly prom inent in the right Bilateral infiltrates and/or atelectasis, right greater than left. Pulmonary edema is likely. Pneumon ia and aspiration are not excluded. Reviewed, dictated and finalized at location L. L ENGINEERING DESIGN DRAFTSPERSON IMPRESSION: Congestive heart failure, pulmonary edema, bilateral pleural effusi ons, particularly prominent in the right Bilateral infiltrates and/or atelectasis, right greater than left. Pulmonary ed gaston is likely. Pneumonia and aspiration are not excluded.
--- NOTE | ~2023-10-04 | XR_ITS ---
Portable chest x-ray Comparison: 10/05/2013 Clinical History: Shortness of breath Findings: Right-sided PICC line in place. Moderate right pleural effusion is present. Possible minim al left pleural effusion. There is hazy and interstitial pulmonary disease bilaterally. Cardiomedias tinal silhouette is stable. Bones and soft tissues are unremarkable. Impression: Moderate right pleural effusion and minimal left pleural effusion. Hazy and interstitial pulmonary disease bilaterally. Correlate for pulmonary edema and/or infection. Right-sided PICC line. Reviewed, dictated and finalized at location M. WASHER Impression: Moderate right pleural effusion and minimal left pleural effusion. Hazy and interstitial pulmonary disease bilaterally. Correlate for pulmonary ed gaston and/or infection. Right-sided PICC line.
--- NOTE | ~2023-10-04 | XR_ITS ---
EXAMINATION: [id number] DATE: 10/05/2023 12:32 INDICATION: Right pleural effusion status post thoracentesis. TECHNIQUE: A single frontal view of the chest was obtained. COMPARISON: Chest 2 views 10/04/2023 FINDINGS: There is a diffuse interstitial pattern in the lungs. There are scattered nodules in the sagar ngs. There are airspace opacities at the lung bases. There are moderate-sized right and small left pl eural effusions. No pneumothorax or the heart size is normal. IMPRESSION: 1. Moderate-sized right pleural effusion with improvement status post thoracentesis. Stable small lef t pleural effusion. 2. Diffuse lung disease, likely a combination of mild pulmonary edema, metastatic disease, and pneumo lior. Reviewed, dictated and finalized at location A. ENGINEER IMPRESSION: 1. Moderate-sized right pleural effusion with improvement status post thoracent esis. Stable small left pleural effusion. 2. Diffuse lung disease, likely a combination of mild pulmonary edema, metastat ic disease, and pneumonia.
--- NOTE | ~2023-10-04 | XR_ITS ---
EXAMINATION: XR chest 1V portable DATE: 10/08/2023 05:56 INDICATION: Shortness of breath, hypoxia and pleural effusion TECHNIQUE: frontal view of the chest was obtained. COMPARISON: Chest radiograph dated 10/07/2023 FINDINGS: Right upper extremity peripherally inserted central venous catheter (PICC) tip at the mid superior v cyndi cava. Small left and moderate sized right pleural effusions. Scattered interstitial and airspace opacities throughout both lungs. The cardiomediastinal silhouette is normal. Mild thoracolumbar levoscoliosis w ith severe spondylosis. IMPRESSION: 1. Small left and moderate sized right pleural effusions. 2. No significant change in bilateral interstitial and airspace opacities consistent with pulmonary e amanda, pneumonia, atelectasis or some combination thereof. Reviewed, dictated and finalized at location A. OF INSTRUCTION IMPRESSION: 1. Small left and moderate sized right pleural effusions. 2. No significant change in bilateral interstitial and airspace opacities consi stent with pulmonary edema, pneumonia, atelectasis or some combination thereof.
--- NOTE | ~2023-10-04 | CT_ITS ---
EXAMINATION: CTA chest PE protocol DATE: 10/04/2023 14:23 INDICATION: Dyspnea. TECHNIQUE: Computed tomography angiography (CTA) of the chest was performed with 100 mL Omnipaque-350 intravenous contrast timed to evaluate the pulmonary arteries. Coronal maximum intensity projection 3D-reconstructions were created by the technologist. Automated exposure control and iterative reconst ruction technique were employed. The dose-length product was 717.48 mGy-cm. COMPARISON: CT abdomen and pelvis 06/04/2022 FINDINGS: There are large right and moderate-sized left pleural effusions. There is smooth septal thi ckening in the lungs, consistent with pulmonary edema. There is peripheral radiation fibrosis in ante rior left lung. There is atelectasis involving the right middle lobe and right lower lobe. There is h ypoenhancement in right lower lobe. There are scattered nodules in the lungs measuring up to 18 mm in left upper lobe. There is bilateral hilar and mediastinal lymphadenopathy with mass effect on the le ft-sided pulmonary arteries. There is no pulmonary embolus. The heart size is normal. There is a smal l pericardial effusion. There is severe cervical and thoracic spondylosis. IMPRESSION: 1. No pulmonary embolus. 2. Pulmonary nodules and hilar and mediastinal lymphadenopathy, consistent metastatic disease. 3. Large right and moderate-sized left pleural effusions. 4. Mild pulmonary edema. 5. Hypoenhancement in right lung lower lobe suspicious for pneumonia. Reviewed, dictated and finalized at location A. ARDING SUPERVISOR IMPRESSION: 1. No pulmonary embolus. 2. Pulmonary nodules and hilar and mediastinal lymphadenopathy, consistent meta static disease. 3. Large right and moderate-sized left pleural effusions. 4. Mild pulmonary edema. 5. Hypoenhancement in right lung lower lobe suspicious for pneumonia.
--- NOTE | 2023-10-04 11:07 | ECG_ITS ---
Measurements Intervals [place] Rate: 91 P: -4 LA: 140 QRS: 29 QRSD: 94 T: 37 QT: 371 QTc: 458 Interpretive Statements PROBABLE SINUS RHYTHM, HOWEVER, BASELINE ARTIFACT LIMITS INTERPRETATION LOW QRS VOLTAGE IN PRECORDIAL LEADS [QRS DEFLECTION < 1.0 mV IN CHEST LEADS] NO PREVIOUS ECG AVAILABLE FOR COMPARISON Electronically Signed On 10-04-2023 15:19:30 DATABASE ADMIN by Kenna Mukherjee M.D.
[2023-10-04 11:24] LABS: Basophils Absolute Auto 0.1 K/mm3 (0.0-0.1); Basophils Percent Auto 0.5 % (0.2-1.2); Eosinophils Absolute Auto 0.1 K/mm3 (0-0.3); Eosinophils Percent Auto 0.8 % (0-4.4); Hematocrit 36.7 % (37.0-47.0); Hemoglobin 13.2 g/dL (12.0-15.0); Immature Granulocyte Absolute 0.05 K/mm3 (0.00-0.031); Immature Granulocyte Percent A 0.5 % (0-0.5); Lymphocytes Absolute Auto 0.79 K/mm3 (0.9-3.2); Lymphocytes Percent Auto 7.1 % (18.3-44.2); Mean Corpuscular Hemoglobin 30.8 pg (26-34); Mean Corpuscular Volume 85.7 fl (80-100); Mean Platelet Volume 7.9 fl (7.4-10.4); Monocytes Absolute Auto 1.1 K/mm3 (0.1-0.6); Monocytes Percent Auto 9.5 % (2.6-8.5); Neutrophils Absolute Auto 9.1 K/mm3 (1.3-6.7); Neutrophils Percent Auto 81.6 % (45.5-73.1); Platelet Count Result 139 k/mm3 (150-375); Red Blood Count 4.28 M/mm3 (4.2-5.4); Red Cell Distribution Width 13.5 % (11.5-14.5); White Blood Count 11.1 K/mm3 (4.5-10.0)
[2023-10-04 11:38] LABS: Alanine Aminotransferase 20 U/L (6-35); Alkaline Phosphatase 87 U/L (38-126); Anion Gap 10 mmol/L (8-16); Aspartate Amino Transferase 45 U/L (14-36); Blood Urea Nitrogen 9 mg/dL (7-17); Carbon Dioxide 25 mmol/L (22-30); Chloride 81 mmol/L (98-107); Estimated CRCL calculation 93 ml/min; Estimated Glomerular Filt Rate > 60; Glucose 232 mg/dL (65-110); Potassium 3.6 mmol/L (3.4-5.0); Sodium 116 mmol/L (137-145)
[2023-10-04 11:46] LABS: INR 0.9; NT Pro B Type Natriuretic Pept 146 pg/mL (19.9-100); Partial Thromboplastin Time 26.9 SECONDS (22.3-36.8); Prothrombin Time 12.9 Seconds (11.1-14.7); Troponin I < 0.012 ng/mL (0.000-0.034)
--- NOTE | 2023-10-04 12:20 | PC.NURSE ---
attempted Valsalva maneuver x2 with no change
--- NOTE | 2023-10-04 12:33 | ED.SOB ---
HPI - SOB/Dyspnea General Chief Complaint: Shortness of Breath/Dyspnea Stated Complaint: sob Time Seen by Provider: 10/04/23 11:59 Source: patient and family Limitations: no limitations History of Present Illness HPI Narrative: patient is a 68-year-old female presents to the emergency department complaining of shortness of breath. Patient states he is feeling short of breath for the past approximately 3 days it is worse with exertion and also admits to source or orthopnea. Patient is to a cough that is nonproductive of any sputum. Patient is to history of blood clots in the remote past denies being on blood thinners. Patient is to low-grade fever in the 99 degree range. Patient denies use of oxygen at home but was informed that her oxygen levels are low so she is currently on a couple L of oxygen currently. Patient states that she saw her primary care physician about this couple days ago was placed on antibiotics for possible bronchitis in addition to inhaler present got much relief with her inhaler. Patient denies any history of heart disease. Patient denies chest pain, bloody bowel movements, urinary discomfort, abdominal pain, seizures, numbness, weakness, sore throat, nasal congestion, unilateral lower extremity swelling. Patient is to taking all her medications as prescribed. Related Data Home Medications Medication Instructions Recorded Confirmed loratadine 10 mg tablet 10 mg PO DAILY 07/08/20 09/16/23 silver sulfadiazine 1 % topical 1 applic topical BID PRN Wound 05/27/22 09/16/23 cream Healing Allergies Allergy/AdvReac Type Severity Reaction Status Date / Time exenatide Allergy Intermediate Itching Verified 10/04/23 11:04 latex Allergy Intermediate REDNESS/SKIN Verified 10/04/23 11:04 IRRITATION morphine Allergy Intermediate Nausea and Verified 10/04/23 11:04 Vomiting Penicillins Allergy Intermediate Hives Verified 10/04/23 11:04 grass pollen AdvReac Mild SINUS Verified 10/04/23 11:04 PROBLEMS Review of Systems Review of Systems: A 10 system review of systems was completed on the patient and is negative except for what is stated in the HPI. Nursing and ancillary documentation was reviewed. REPLACED BY [facility] Past Medical History Medical History Arthritis of shoulder region, 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d by chemotherapy in immobility; right lower extremity Gout History of kidney stones Invasive ductal carcinoma of left breast (~02/2021) Irritable bowel syndrome with diarrhea Low back pain Mixed hyperlipidemia Mixed stress and urge urinary incontinence Obesity Osteoporosis Paroxysmal atrial fibrillation Primary hyperparathyroidism Sacroiliac joint dysfunction of both sides Type 2 diabetes mellitus without complications Vitamin D deficiency Surgical History Surgical History History of X1 followed by History of endometrial ablation History of parathyroidectomy (~2009) History of spinal fusion History of tonsillectomy and adenoidectomy Status post hysteroscopy Status post left breast lumpectomy September 2021 Family History Family History Father Diabetes mellitus Hypertension Family history of elevated blood lipids Arthritis, rheumatoid Heart disease, Onset Age: 69 Due to lupus SLE (systemic lupus erythematosus) Sibling Lupus 1 brother and 1 sister Daughter Multiple sclerosis Mother , Age 82 Natural Social History Social History Social History: She lives in [place] with her of 43 years. 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 She used to drink alcohol on occasion i
[2023-10-04] MEDS: SODIUM CHLORIDE 0.9% IV 1,000 ML 150 ML IV CONT (12:40)
[2023-10-04] MEDS: FUROSEMIDE INJ 40 MG/4 ML VIAL 60 MG IV PUSH (12:41)
[2023-10-04 13:07] LABS: Appearance Urine Clear (Clear); Bacteria Urine None Seen /hpf; Bilirubin Urine Negative (Negative); Blood Urine Negative (Negative); Color Urine Yellow (Yellow); Glucose Urine UA 3+ mg/dL (Negative); Ketones Urine 3+ mg/dL (Negative); Leukocyte Esterase Ur Negative LEU/UL (Negative); Nitrate Urine Negative (Negative); Non Pathogenic Casts 0-2; Protein Urine Trace mg/dL (Negative); RBC Urine 0-2 /hpf (0-2); Specific Grav Ur 1.018 (1.001-1.035); Squamous Epithelial Cell Urine None seen /hpf (Few); Urobilinogen Urine 0.2 mg/dL (<2.0); pH Urine 7.5 (5.0-9.0)
[2023-10-04 13:10] LABS: Add Urine Microscopic? YES
[2023-10-04 13:16] LABS: Creatinine Urine 45.4 mg/dL
[2023-10-04 13:19] LABS: CRP 3.1 mg/dL (<1.0); Magnesium 1.1 mg/dL (1.6-2.3); Phosphorus 2.9 mg/dL (2.5-4.5)
[2023-10-04] MEDS: IPRATROPIUM 0.5 MG/ALBUTEROL SULFATE 2.5 MG AMPUL.NEB 3 ML INHALATION (13:19)
[2023-10-04 13:20] LABS: Urea Random Urine 314 MG/DL
[2023-10-04 13:23] LABS: Sodium Urine Random 151 meq/L
[2023-10-04 13:29] LABS: D Dimer 2.93 ug/mL (<0.48)
[2023-10-04 13:34] LABS: Fractional Inspired Oxygen 48 %; HCO3 VBG 21.7 mEq/l (24.0-30.0); PO2 VBG 161.4 mmHg (35.0-45.0)
[2023-10-04 13:36] LABS: PCO2 VBG 24.2 mmHg (42.0-48.0)
[2023-10-04 13:37] LABS: Device OTHER DEVICE
[2023-10-04 13:40] LABS: Influenza A QL RT-PCR Negative (Negative); Influenza B QL RT-PCR Negative (Negative); RSV RNA, RT-PCR Negative (Negative); SARS-CoV-2 RNA PCR Negative (Negative)
[2023-10-04 13:46] LABS: Procalcitonin 0.1 ng/mL
[2023-10-04] MEDS: MAGNESIUM SULF 2 GM/WATER 50ML 2 GM/50 ML BAG IVPB (13:55)
[2023-10-04] MEDS: levoFLOXacin 750 MG/D5W 150 ML 750 MG/150 ML BAG 100 MG IVPB (15:22)
[2023-10-04 15:49] LABS: Troponin I < 0.012 ng/mL (0.000-0.034)
--- NOTE | 2023-10-04 17:46 | PC.NURSE ---
update given to kenroy at [facility] transfer center. patient is accepted to ICU wait list
[2023-10-04 18:13] LABS: Sodium 116 mmol/L (137-145)
[2023-10-04 19:13] LABS: Troponin I < 0.012 ng/mL (0.000-0.034)
[2023-10-04] MEDS: ONDANSETRON INJ 4 MG/2 ML VIAL IV PUSH (19:53)
--- NOTE | 2023-10-04 21:11 | PM.IMHP ---
H&P: HPI History of Present Illness Date/Time: 10/04/23 21:11 Chief Complaint: Shortness of breath Narrative: patient is a 68-year-old female with prior history of breast cancer and blood clot who presents to the emergency department complaining of shortness of breath of 3 days, was with exertion, a strep with orthopnea, no chest pain, recently had bronchitis which was treated with oral antibiotic. Patient denies chest pain, bloody bowel movements, urinary discomfort, abdominal pain, seizures, numbness, weakness, sore throat, nasal congestion, unilateral lower extremity swelling.? Patient is to taking all her medications as prescribed..? Family at bedside reported that her oxygen saturation on room air was 70%. She required 3 L of oxygen in the ER to maintain saturation above 95%. She was evaluated and found to have multiple pulmonary nodule suspicious of metastatic disease, hyponatremia of 116 and mild pulmonary edema. EKG showed right bundle-branch block with no acute STT wave changes, troponin x3 were all negative, There is also finding of mild pulmonary infiltrate. She was provided with IV furosemide, Levaquin 750 mg IV, and breathing treatment and this improved her symptoms significantly. Efforts were made to transfer this patient to higher level of care however I was called to admit this patient as there was no bed available at chosen facility. She states she feels a little better, oxygen saturation on room air drain is account of was 90-91%. She still has dry cough. Review of Systems Review of Systems: All systems reviewed & are unremarkable except as noted in HPI and below PMFSH Past Medical History Medical History Arthritis of shoulder region, 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d by chemotherapy in immobility; right lower extremity Gout History of kidney stones Invasive ductal carcinoma of left breast (~02/2021) Irritable bowel syndrome with diarrhea Low back pain Mixed hyperlipidemia Mixed stress and urge urinary incontinence Obesity Osteoporosis Paroxysmal atrial fibrillation Primary hyperparathyroidism Sacroiliac joint dysfunction of both sides Type 2 diabetes mellitus without complications Vitamin D deficiency Surgical History Surgical History History of X1 followed by History of endometrial ablation History of parathyroidectomy (~2009) History of spinal fusion History of tonsillectomy and adenoidectomy Status post hysteroscopy Status post left breast lumpectomy September 2021 Family History Family History Father Diabetes mellitus Hypertension Family history of elevated blood lipids Arthritis, rheumatoid Heart disease, Onset Age: 69 Due to lupus SLE (systemic lupus erythematosus) Sibling Lupus 1 brother and 1 sister Daughter Multiple sclerosis Mother , Age 82 Natural Social History Social History Social History: She lives in [place] with her of 43 years. 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 She used to drink alcohol on occasion in in moderation but has not done so in quite some time. She denies any history of tobacco or illicit substance use. She is independent activities of daily living. Smoking status: Never smoker Alcohol intake: never Substance use: never Substance use type: does not use Do You Feel Safe in your Home?: Yes Lack of Transportation: No Lack of Food: Never True Current Housing: I Have Housing Concerned About Future Housing: No Difficulty Paying Gas/Electric Bills: No Difficulty Paying for Meds: No Currently Unemployed: No Education: [employer]
--- NOTE | 2023-10-04 21:52 | PC.NURSE ---
update given to michael at [facility] transfer center
[2023-10-04 22:43] LABS: Anion Gap 8 mmol/L (8-16); Blood Urea Nitrogen 8 mg/dL (7-17); Calcium 9.2 mg/dL (8.4-10.2); Carbon Dioxide 26 mmol/L (22-30); Chloride 80 mmol/L (98-107); Estimated CRCL calculation 97 ml/min; Estimated Glomerular Filt Rate > 60; Glucose 224 mg/dL (65-110); Sodium 114 mmol/L (137-145)
[2023-10-04 23:29] LABS: Potassium 3.3 mmol/L (3.4-5.0)
--- NOTE | 2023-10-04 23:45 | PC.NURSE ---
Spoke with Dr. El. Get stat BMP x1 now. Call Nephrology with results.
[2023-10-05] VITALS (23 sets, daily range): BP systolic 112–186; BP diastolic 68–104; PULSE 90–108; RESP 15–24; TEMP 36.6–36.9; O2SAT 89–96; BMI 34.9
--- NOTE | 2023-10-05 | PC.NURSE ---
Although patient has no output charted from ER, patient states she has has multiple voids in ER.
--- NOTE | 2023-10-05 | ECHO_ITS ---
Patient Info Name: Cathy Glynn Age: 68 years : 1955 Gender: Female Ht: 63 in Wt: 197 lbs BSA: 2.03 m2 HR: 98 bpm BP: 123 / 65 mmHg Heart Rhythm: Sinus Rhythm Exam Date: 10/05/2023 11:13 AM Exam Location: Echo Lab Exam Room: ICU 11 Patient Status: Inpatient Admit Date: 10/04/2023 Staff Ordering Physician: Edgar El MD Industrial Automation Engineer: Anisha Sebastian [facility] Attending Provider: Terri Nielsen MD Exam Type: CA echo dop color flow w con Study Info Indications - CHF Complete two-dimensional, color flow and Doppler transthoracic echocardiogram is performed with contrast to opacify the left ventricle and to improve the deliniation of the left ventricle endocardial borders. Contrast/Agitated Saline Amount: 2.00 ml Administered By: Anisha Sebastian [facility] Existing IV Access: Yes IV Access Condition: patent with no signs of infiltration Summary 1. Left ventricular chamber dimension is normal. 2. Left ventricular systolic function is normal, estimated at 60-65%. 3. There is mildly increased left ventricular wall thickness. 4. The left ventricular diastolic function is grade I diastolic dysfunction. 5. There is mild mitral valve regurgitation. 6. There is mild tricuspid valve regurgitation. 7. Moderate pulmonary hypertension, estimated pulmonary arterial systolic pressure is 47 mmHg. 8. There is mild pulmonic regurgitation. 9. The pericardium appears increased echogenicity of the pericardium. 10. There is small pericardial effusion. 11. Right atrial free wall invagination consistent with elevated pericardial pressure. Left Ventricle Left ventricular chamber dimension is normal. Left ventricular systolic function is normal, estimated at 60-65%. There is mildly increased left ventricular wall thickness. The left ventricular diastolic function is grade I diastolic dysfunction. Right Ventricle Right ventricular chamber dimension is normal. Right ventricular systolic function is normal. Left Atria Left atrial chamber dimension is normal. Right Atria Right atrial chamber dimension is normal. Atrial Septum Intact interatrial septum visualized by color flow imaging. Aortic Valve The aortic valve is trileaflet. There is mild aortic valve sclerosis. There is no aortic valve stenosis. There is trace aortic valve regurgitation. Pulmonic Valve The pulmonic valve is normal. There is no pulmonic valve stenosis. There is mild pulmonic regurgitation. Mitral Valve The mitral valve has normal leaflets. There is no mitral valve stenosis. There is mild mitral valve regurgitation. Tricuspid Valve The tricuspid valve leaflets are normal. There is no significant tricuspid valve stenosis. There is mild tricuspid valve regurgitation. Moderate pulmonary hypertension, estimated pulmonary arterial systolic pressure is 47 mmHg. Pericardium/Pleural The pericardium appears increased echogenicity of the pericardium. There is small pericardial effusion. Right atrial free wall invagination consistent with elevated pericardial pressure. Inferior Vena Cava Normal inferior vena cava with >50% collapse upon inspiration consistent with normal right atrial pressure, 10 mmHg. Aorta The aortic root size at the sinus of Valsalva is normal. Left Ventricular Outflow Tract Name Value Normal LVOT 2D
--- NOTE | 2023-10-05 00:18 | ADMGEN ---
This patient, Cathy Glynn, was admitted to Intensive Care Unit-11 on 10/04/23 at 2319. Patient/family oriented to hospital policies and general routines including ID bracelet, bed and alarms, visiting hours, pain management, procedures, bathroom and other care routines, personal items, smoking policy, room service/diet, and visiting hours. Information on how to activate the Rapid Response Team has been discussed. Patient/Family are encouraged to report perceived risks to care and to ask questions if they do not understand what they are told or what they should do.
[2023-10-05 00:26] LABS: Anion Gap 6 mmol/L (8-16); Blood Urea Nitrogen 8 mg/dL (7-17); Calcium 8.9 mg/dL (8.4-10.2); Carbon Dioxide 31 mmol/L (22-30); Chloride 78 mmol/L (98-107); Estimated CRCL calculation 97 ml/min; Estimated Glomerular Filt Rate > 60; Glucose 161 mg/dL (65-110); Potassium 3.4 mmol/L (3.4-5.0); Sodium 115 mmol/L (137-145)
--- NOTE | 2023-10-05 00:44 | ADMGEN ---
This patient, Cathy Glynn, was admitted to Intensive Care Unit-11. Patient/family oriented to hospital policies and general routines including ID bracelet, bed and alarms, visiting hours, pain management, procedures, bathroom and other care routines, personal items, smoking policy, room service/diet, and visiting hours. Information on how to activate the Rapid Response Team has been discussed. Patient/Family are encouraged to report perceived risks to care and to ask questions if they do not understand what they are told or what they should do.
[2023-10-05] MEDS: SODIUM CHLORIDE 3% 100 ML IV CONT (01:35)
[2023-10-05] MEDS: IPRATROPIUM 0.5 MG/ALBUTEROL SULFATE 2.5 MG AMPUL.NEB 3 ML INHALATION ×4 (01:36→20:50)
[2023-10-05 03:46] LABS: Basophils Percent Auto 0.4 % (0.2-1.2); Eosinophils Absolute Auto 0.1 K/mm3 (0-0.3); Hematocrit 33.3 % (37.0-47.0); Immature Granulocyte Absolute 0.05 K/mm3 (0.00-0.031); Immature Granulocyte Percent A 0.5 % (0-0.5); Lymphocytes Absolute Auto 0.91 K/mm3 (0.9-3.2); Lymphocytes Percent Auto 8.9 % (18.3-44.2); Mean Corpuscular Hemoglobin 30.9 pg (26-34); Mean Corpuscular Volume 85.8 fl (80-100); Mean Platelet Volume 7.8 fl (7.4-10.4); Monocytes Absolute Auto 1.4 K/mm3 (0.1-0.6); Neutrophils Absolute Auto 7.7 K/mm3 (1.3-6.7); Neutrophils Percent Auto 75.2 % (45.5-73.1); Platelet Count Result 135 k/mm3 (150-375); Red Blood Count 3.88 M/mm3 (4.2-5.4); Red Cell Distribution Width 13.5 % (11.5-14.5); White Blood Count 10.2 K/mm3 (4.5-10.0)
[2023-10-05 04:40] LABS: Anion Gap 5 mmol/L (8-16); Blood Urea Nitrogen 7 mg/dL (7-17); Carbon Dioxide 29 mmol/L (22-30); Chloride 83 mmol/L (98-107); Estimated CRCL calculation 97 ml/min; Estimated Glomerular Filt Rate > 60; Glucose 172 mg/dL (65-110); Magnesium 1.2 mg/dL (1.6-2.3); Potassium 3.3 mmol/L (3.4-5.0); Sodium 117 mmol/L (137-145)
[2023-10-05 04:57] LABS: MRSA (PCR) NOT DETECTED (NOT DETECTE)
[2023-10-05] MEDS: POTASSIUM CHLORIDE 20 MEQ ER TABLET 40 MEQ PO (05:52)
[2023-10-05 07:51] LABS: Glucose Point of Care 214 mg/dl (65-105)
[2023-10-05 08:00] LABS: Magnesium 1.8 mg/dL (1.6-2.3)
[2023-10-05 08:02] LABS: Anion Gap 7 mmol/L (8-16); Blood Urea Nitrogen 6 mg/dL (7-17); Calcium 8.5 mg/dL (8.4-10.2); Carbon Dioxide 28 mmol/L (22-30); Chloride 80 mmol/L (98-107); Estimated CRCL calculation 97 ml/min; Estimated Glomerular Filt Rate > 60; Glucose 185 mg/dL (65-110); Potassium 3.5 mmol/L (3.4-5.0); Sodium 115 mmol/L (137-145)
[2023-10-05] MEDS: FLUTICASONE/SALMETEROL 115-21 MCG INHALER 1 PUFF 2 PUFF INHALATION ×2 (08:03→20:45)
[2023-10-05 08:27] LABS: Lactate Dehydrogenase 238 U/L (120-246)
[2023-10-05] MEDS: SODIUM CHLORIDE 3% 500 ML 50 ML IV CONT (08:43)
[2023-10-05] MEDS: FUROSEMIDE INJ 40 MG/4 ML VIAL IV PUSH (08:43)
[2023-10-05] MEDS: LORATADINE 10 MG TABLET PO (08:49)
[2023-10-05] MEDS: POTASSIUM CHLORIDE 20 MEQ PACKET (FOR LIQUID) 40 MEQ BY MOUTH ×2 (08:49→12:09)
[2023-10-05] MEDS: allopurinoL 300 MG TABLET PO (08:50)
[2023-10-05] MEDS: ACETAMINOPHEN 325 MG TABLET 650 MG PO ×3 (09:05→20:48)
--- NOTE | 2023-10-05 09:15 | PM.IMPN ---
Progress Note: A&P Assessment and Plan (1) Acute hyponatremia: Code(s): E87.1 - Hypo-osmolality and hyponatremia Status: Acute (2) Pleural effusion on right: Code(s): J90 - Pleural effusion, not elsewhere classified Status: Acute (3) Acute hypoxemic respiratory failure: Code(s): J96.01 - Acute respiratory failure with hypoxia Status: Acute (4) Pneumonia: Qualifiers: Laterality: unspecified laterality Lung location: unspecified part of lung Pneumonia type: due to unspecified organism Qualified Code(s): J18.9 - Pneumonia, unspecified organism Code(s): J18.9 - Pneumonia, unspecified organism Status: Acute (5) Multiple pulmonary nodules: Code(s): R91.8 - Other nonspecific abnormal finding of lung field Status: Acute Plan patient is a 68-year-old female presents to the emergency department complaining of shortness of breath.? Patient states he is feeling short of breath for the past approximately 3 days it is worse with exertion and also admits to source or orthopnea.? Patient is to a cough that is nonproductive of any sputum.? Patient is to history of blood clots in the remote past denies being on blood thinners.? Patient is to low-grade fever in the 99 degree range.? Patient denies use of oxygen at home but was informed that her oxygen levels are low so she is currently on a couple L of oxygen currently.? Patient states that she saw her primary care physician about this couple days ago was placed on antibiotics for possible bronchitis in addition to inhaler present got much relief with her inhaler.? Patient denies any history of heart disease. Acute respiratory failure COPD exacerbation Likely secondary to pneumonia COPD exacerbation Continue Advair 2 puffs b.i.d. Start DuoNeb scheduled albuterol nebulizer as needed Start O2 therapy to keep pulse ox above 93 Hypertension urgency Blood pressure 186/104 Not on medications Start amlodipine 10 mg daily p.o., losartan 50 mg daily p.o. Adjust medication accordingly Pleural effusion Thoracentesis will perform, about 6 L fluid was removed. Pleural fluid was red in color bloody, Metastatic cancer to lung Chest CTA? 10/04/23 14:23 IMPRESSION: 1. No pulmonary embolus. 2. Pulmonary nodules and hilar and mediastinal lymphadenopathy, consistent metastatic disease. 3. Large right and moderate-sized left pleural effusions. 4. Mild pulmonary edema. 5. Hypoenhancement in right lung lower lobe suspicious for pneumonia. Pneumonia Patient has a cough, CT suggest pneumonia continue antibiotic, Congestive heart failure X-ray and CT scan suggest pulmonary edema, bilateral pleural effusion hyponatremia, paraneoplastic, or hypervolemic hyponatremia or ATN Pending serum osmolality Follow urine electrolyte FeNa =1.4% CONSULT TECHNICIAN BIOLOGICAL HEALTH Patient received hypertonic saline, sodium level trending up Acute heart failure Pulmonary congestion Lasix 40 mg IV once Pending echocardiogram Subjective Date/time seen: 10/05/23 09:15 Interval history: I saw and examined the patient today, patient underwent thoracentesis, about 6 L fluid was removed out from left chest. Patient feels dyspnea is improving. Patient also received hypertonic saline today, sodium 115 in the morning, and bump up to 121 after receiving hypertonic saline Exam Narrative: ?CONST:? Awake alert and oriented x4, not in distress. Well nourished. ? Patient is on 3 L of supplemental oxygen via nasal cannula saturating in the mid 90s on this intervention.? Patient is sitting upright in the bed. HENMT: Head is normocephalic and atraumatic. Moist mucous membranes. No posterior oropharynx erythema. EYES: No conjunctival icterus, injection, or pallor. PERRL. NECK: No meningeal signs. RESP: ? Diminished breath sounds at the bilateral bases of the lungs R>>L.? No wheeze or rhonchi or stridor.? No accessory muscle usage for ventilation. CARDIO: Regul
--- NOTE | 2023-10-05 09:22 | PC.NURSE ---
spoke with Ashley with [facility] transfer center; updated with most recent labs and vital signs; Ashley stated no beds at this time but will notify if one becomes available
--- NOTE | 2023-10-05 09:45 | WPDCNINT ---
Assessment and Plan Assessment and plan (1) Hyponatremia: Code(s): E87.1 - Hypo-osmolality and hyponatremia Status: Acute Assessment and Plan: Chronicity unknown. Patient alert oriented x3 and no evidence of seizures She is hypervolemic and volume overloaded Continue Lasix IV for volume overload Free water restriction Patient will be started on 3% saline 50 mL/hour. BMPs will be checked every 4 hours and rate adjusted to target improvement of approximately 8 mEq over next 24 hours Consult nephrology TSH is normal Check cortisol (2) Hypoxia: Code(s): R09.02 - Hypoxemia Status: Acute Assessment and Plan: Hypoxia secondary to pulmonary edema and large pleural effusions. There is possibility of pneumonia although her white count is minimally elevated and procalcitonin level is low Check blood cultures. Continue Levaquin that was started in the ER. Patient is allergic to penicillin Continue diuretics I will request IR for thoracentesis on the right side. Will send pleural fluid for studies Check echocardiogram CTA was negative for PE. Check lower extremity Dopplers (3) Pulmonary edema: Qualifiers: Chronicity: acute Qualified Code(s): J81.0 - Acute pulmonary edema Code(s): J81.1 - Chronic pulmonary edema Status: Acute Assessment and Plan: See above (4) Pleural effusion: Code(s): J90 - Pleural effusion, not elsewhere classified Status: Acute Assessment and Plan: See above (5) Type 2 diabetes mellitus without complications: Qualifiers: Diabetes mellitus [facility] insulin use: without watermaster use Qualified Code(s): E11.9 - Type 2 diabetes mellitus without complications Code(s): E11.9 - Type 2 diabetes mellitus without complications Status: Acute Assessment and Plan: Sliding scale insulin Continue metformin (6) Electrolyte abnormality: Code(s): E87.8 - Other disorders of electrolyte and fluid balance, not elsewhere classified Status: Acute Assessment and Plan: Replace low potassium and magnesium (7) Mixed hyperlipidemia: Code(s): E78.2 - Mixed hyperlipidemia Status: Acute Assessment and Plan: Continue statin (8) Breast cancer: Code(s): C50.919 - Malignant neoplasm of unspecified site of unspecified female breast Status: Acute Assessment and Plan: Patient was diagnosed with breast cancer in 2020 and continued chemotherapy until October of 2022 at [facility]. She states that she was told that she was cancer free. CT scan shows pulmonary nodules with hilar mediastinal lymphadenopathy suggestive of Metastatic disease Patient is waiting for transfer to [facility] and will defer further evaluation and management to the accepting hospital physicians Plan DVT prophylaxis -start Lovenox thoracentesis Stress ulcer prophylaxis - NA Nutrition -npo Code Status -I had detailed discussed with the patient and updated her with findings of his CT scan and lab values. We discussed goals of care patient wishes to be DNR and DNI which I have updated in the chart. Total Critical Care Time - 40 minutes Due to a high probability of clinically significant, life threatening deterioration, the patient required my highest level of preparedness to intervene emergently and I personally spent this critical care time directly and personally managing the patient. This critical care time included obtaining a history; examining the patient; pulse oximetry; ordering and review of studies; arranging urgent treatment with development of a management plan; evaluation of patient's response to treatment; frequent reassessment; and discussions with other providers. It was exclusive of separately billable procedures and treating other patients and teaching time. Please see Assessment and Plan section and the rest of the note for further information on patient assessment and treatm
[2023-10-05 10:33] LABS: NT Pro B Type Natriuretic Pept 144 pg/mL (19.9-100)
[2023-10-05 10:42] LABS: pH Pleural Fluid > 7.500 (7.210-7.500)
[2023-10-05] MEDS: PERFLUTREN LIPID MICROSPHERES 1.5 ML VIAL DILUTED TO 10 ML TOTAL VOLUME IV PUSH (11:20)
[2023-10-05 12:01] LABS: Glucose Point of Care 186 mg/dl (65-105)
--- NOTE | 2023-10-05 12:13 | PM.CNNEP ---
Assessment and Plan Assessment and plan (1) Hyponatremia: Code(s): E87.1 - Hypo-osmolality and hyponatremia Status: Acute Assessment and Plan: acute versus chronic versus acute on chronic?? clear evidence of fluid/volume overload metastatic cancer playing a role? agree with free water restriction s/p 3% saline and getting IV diuretics -- last sodium up to 121 follow up on TSH, cortisol, serum/urine osmo, and SPEP and UPEP follow repeat sodium levels (2) Hypoxia: Code(s): R09.02 - Hypoxemia Status: Acute Assessment and Plan: presumably secondary to pulmonary edema and large pleural effusions possible of pneumonia as well? follow culture data on antibiotic on IV diuretics s/p right thoracentesis follow-up on echo (3) Breast cancer: Code(s): C50.919 - Malignant neoplasm of unspecified site of unspecified female breast Status: Acute Assessment and Plan: known history of breast cancer in 2020 treated with chemotherapy until October of 2022 -- informed that she was was cancer free however, CT scan shows pulmonary nodules with hilar mediastinal lymphadenopathy suggestive of metastatic disease awaiting for transfer to [facility] (4) Type 2 diabetes mellitus without complications: Qualifiers: Diabetes mellitus terminal makeup operator insulin use: without terminal makeup operator use Qualified Code(s): E11.9 - Type 2 diabetes mellitus without complications Code(s): E11.9 - Type 2 diabetes mellitus without complications Status: Acute Assessment and Plan: follow accu-cheks glycemic control per hospitalists/intensivists I will continue follow the patient with you while she remains hospitalized and make further recommendations as deemed necessary Thank you for allowing me to participate in care this patient. History of Present Illness Reason for Consult Consult date: 10/05/23 Reason for consult: hyponatremia Chief Complaint Chief complaint: Hyponatremia History of Present Illness Narrative: The patient is a 68-year-old female with a past medical history as outlined below who presented to [facility] Emergency Room with complaints of shortness of breath and cough. The patient states that the symptoms started few weeks ago. Initially, the shortness of breath was with activity but over the last week if not longer, she has noticed the shortness of breath at rest and seems to progressively getting worse in general to the point where she feels short of breath even at rest. Other associated symptoms include orthopnea and inability to lay flat in bed to the point where she has to sleep in a reclining chair. She also reports a nonproductive cough as well. No reported chest pain. She apparently was seen as an outpatient about a week ago and was diagnosed with bronchitis but does not seem to be getting any better with the therapy prescribed. Given her worsening shortness of breath and overall clinical condition, she came to the ER for further assessment. Workup and evaluation emergency room demonstrated the patient to be in mild respiratory distress and hypoxic on presentation. She required 3 L of supplemental oxygen to get her oxygen saturations in the 95 percentile range. She was otherwise hemodynamically stable but given her history and symptoms that led to her presentation, she had a CT scan of the chest which was negative for a pulmonary embolism but showed multiple pulmonary nodules suspicious of metastatic disease in association with pulmonary edema. She also had large bilateral pleural effusions with the right greater than the left. Routine blood work was significant for significant hyponatremia with a sodium level 116. IV diuretics, IV antibiotics, as well as breathing treatments in effort to optimize her respiratory status. She was also given 3% saline an effort to correct her sodium level and was subsequently admitted to the intensive
[2023-10-05 12:28] LABS: Appearance Pleural Fluid Bloody (Clear); Color Pleural Fluid Red (Colorless); Pleural fluid source Pleural fluid
[2023-10-05 12:29] LABS: Lymphocytes Pleural Fluid 52 %; Macrophages Pleural Fluid 13 %; Mesothelial Cells Pleural Flui 30 %; Neutrophils Pleural Fluid 5 % (0-25)
[2023-10-05 12:55] LABS: Anion Gap 7 mmol/L (8-16); Blood Urea Nitrogen 6 mg/dL (7-17); Calcium 8.7 mg/dL (8.4-10.2); Carbon Dioxide 31 mmol/L (22-30); Chloride 83 mmol/L (98-107); Estimated CRCL calculation 82 ml/min; Estimated Glomerular Filt Rate > 60; Glucose 182 mg/dL (65-110); Potassium 3.8 mmol/L (3.4-5.0); Sodium 121 mmol/L (137-145)
--- NOTE | 2023-10-05 13:53 | IVDEFINITY ---
Prior to administration of IV Definity the patient was educated on the risks and benefits of the imaging enhancing agent including potential adverse side effects. The patient verbalized understanding. Allergies were verified. No exclusion criteria were identified and at least one of the following inclusion criteria were met: 1) physician request, 2) patient technically difficult to image (per the [place] [employer] guidelines of two or more segments not discernable within the apical view), or 3) questionable left ventricular function. ?
--- NOTE | 2023-10-05 14:44 | PC.NURSE ---
updated [facility] transfer center per Dr. El's request of latest sodium of 121 and patient had been downgraded to IMU status
[2023-10-05] MEDS: levoFLOXacin 750 MG/D5W 150 ML 750 MG/150 ML BAG 100 MG IVPB (15:44)
[2023-10-05 16:41] LABS: Glucose Point of Care 215 mg/dl (65-105)
[2023-10-05 17:15] LABS: Anion Gap 7 mmol/L (8-16); Blood Urea Nitrogen 9 mg/dL (7-17); Calcium 8.4 mg/dL (8.4-10.2); Carbon Dioxide 25 mmol/L (22-30); Chloride 85 mmol/L (98-107); Estimated CRCL calculation 82 ml/min; Estimated Glomerular Filt Rate > 60; Glucose 198 mg/dL (65-110); Potassium 4.5 mmol/L (3.4-5.0); Sodium 117 mmol/L (137-145)
[2023-10-05] MEDS: diphenhydrAMINE HCl CAP 25 MG CAPSULE 50 MG PO (17:38)
[2023-10-05] MEDS: FUROSEMIDE 20 MG TABLET PO (17:38)
[2023-10-05] MEDS: metFORMIN HCL 500 MG TABLET 1000 MG PO (17:38)
[2023-10-05] MEDS: SODIUM CHLORIDE 1 GM TABLET PO (17:39)
[2023-10-05] MEDS: SIMVASTATIN 20 MG TABLET PO (20:46)
[2023-10-05 20:50] LABS: Glucose Point of Care 183 mg/dl (65-105)
[2023-10-05 21:29] LABS: Anion Gap 6 mmol/L (8-16); Blood Urea Nitrogen 10 mg/dL (7-17); Calcium 8.4 mg/dL (8.4-10.2); Carbon Dioxide 28 mmol/L (22-30); Chloride 85 mmol/L (98-107); Estimated CRCL calculation 71 ml/min; Estimated Glomerular Filt Rate > 60; Glucose 173 mg/dL (65-110); Potassium 4.5 mmol/L (3.4-5.0); Sodium 119 mmol/L (137-145)
[2023-10-06] VITALS (17 sets, daily range): BP systolic 111–131; BP diastolic 65–81; PULSE 91–116; RESP 16–26; TEMP 36.4–36.7; O2SAT 91–95
[2023-10-06 02:14] LABS: Anion Gap 3 mmol/L (8-16); Blood Urea Nitrogen 10 mg/dL (7-17); Calcium 8.4 mg/dL (8.4-10.2); Carbon Dioxide 29 mmol/L (22-30); Chloride 86 mmol/L (98-107); Estimated CRCL calculation 82 ml/min; Estimated Glomerular Filt Rate > 60; Glucose 171 mg/dL (65-110); Potassium 4.2 mmol/L (3.4-5.0); Sodium 118 mmol/L (137-145)
[2023-10-06] MEDS: IPRATROPIUM 0.5 MG/ALBUTEROL SULFATE 2.5 MG AMPUL.NEB 3 ML INHALATION ×3 (02:44→20:53)
[2023-10-06] MEDS: SODIUM CHLORIDE 500 MG TABLET 1000 MG PO (03:55)
[2023-10-06] MEDS: FUROSEMIDE INJ 40 MG/4 ML VIAL 20 MG IV PUSH ×2 (03:55→17:02)
[2023-10-06 07:31] LABS: Hematocrit 35.9 % (37.0-47.0); Hemoglobin 12.5 g/dL (12.0-15.0); Mean Corpuscular HGB Conc 34.8 g/dl (32-36); Mean Corpuscular Hemoglobin 30.6 pg (26-34); Mean Platelet Volume 7.8 fl (7.4-10.4); Platelet Count Result 161 k/mm3 (150-375); Red Blood Count 4.08 M/mm3 (4.2-5.4); White Blood Count 10.6 K/mm3 (4.5-10.0)
[2023-10-06 07:59] LABS: Alanine Aminotransferase 20 U/L (6-35); Albumin Level 3.6 g/dL (3.5-5.1); Alkaline Phosphatase 82 U/L (38-126); Anion Gap 4 mmol/L (8-16); Aspartate Amino Transferase 45 U/L (14-36); Bilirubin,Total 0.8 mg/dL (0.2-1.3); Blood Urea Nitrogen 9 mg/dL (7-17); Calcium 8.6 mg/dL (8.4-10.2); Carbon Dioxide 29 mmol/L (22-30); Chloride 85 mmol/L (98-107); Estimated CRCL calculation 82 ml/min; Estimated Glomerular Filt Rate > 60; Glucose 192 mg/dL (65-110); Magnesium 1.6 mg/dL (1.6-2.3); Potassium 4.1 mmol/L (3.4-5.0); Sodium 118 mmol/L (137-145)
[2023-10-06 08:01] LABS: Glucose Point of Care 209 mg/dl (65-105)
--- NOTE | 2023-10-06 09:52 | PC.NURSE ---
received call at [phone] from Franchesca at [facility] transfer center updated with latest labs and vital signs; no bed available at this time but patient will remain on waitlist
[2023-10-06] MEDS: ENOXAPARIN 40 MG/0.4 ML SYRINGE SUB-Q (09:58)
[2023-10-06] MEDS: SODIUM CHLORIDE 1 GM TABLET PO ×2 (09:58→17:02)
[2023-10-06] MEDS: LORATADINE 10 MG TABLET PO (09:58)
[2023-10-06] MEDS: allopurinoL 300 MG TABLET PO (09:58)
[2023-10-06] MEDS: FUROSEMIDE 20 MG TABLET PO (09:58)
[2023-10-06] MEDS: metFORMIN HCL 500 MG TABLET 1000 MG PO ×2 (09:58→17:02)
[2023-10-06] MEDS: ACETAMINOPHEN 325 MG TABLET 650 MG PO ×2 (09:58→19:39)
--- NOTE | 2023-10-06 10:41 | PM.IMPN ---
Progress Note: A&P Assessment and Plan (1) Acute hyponatremia: Code(s): E87.1 - Hypo-osmolality and hyponatremia Status: Acute (2) Pleural effusion on right: Code(s): J90 - Pleural effusion, not elsewhere classified Status: Acute (3) Acute hypoxemic respiratory failure: Code(s): J96.01 - Acute respiratory failure with hypoxia Status: Acute (4) Pneumonia: Qualifiers: Laterality: unspecified laterality Lung location: unspecified part of lung Pneumonia type: due to unspecified organism Qualified Code(s): J18.9 - Pneumonia, unspecified organism Code(s): J18.9 - Pneumonia, unspecified organism Status: Acute (5) Multiple pulmonary nodules: Code(s): R91.8 - Other nonspecific abnormal finding of lung field Status: Acute Plan patient is a 68-year-old female presents to the emergency department complaining of shortness of breath.? Patient states he is feeling short of breath for the past approximately 3 days it is worse with exertion and also admits to source or orthopnea.? Patient is to a cough that is nonproductive of any sputum.? Patient is to history of blood clots in the remote past denies being on blood thinners.? Patient is to low-grade fever in the 99 degree range.? Patient denies use of oxygen at home but was informed that her oxygen levels are low so she is currently on a couple L of oxygen currently.? Patient states that she saw her primary care physician about this couple days ago was placed on antibiotics for possible bronchitis in addition to inhaler present got much relief with her inhaler.? Patient denies any history of heart disease. Acute respiratory failure COPD exacerbation Likely secondary to pneumonia COPD exacerbation Continue Advair 2 puffs b.i.d. Start DuoNeb scheduled albuterol nebulizer as needed Start O2 therapy to keep pulse ox above 93 Hypertension urgency Blood pressure 186/104 Not on medications Start amlodipine 10 mg daily p.o., losartan 50 mg daily p.o. Adjust medication accordingly Pleural effusion Thoracentesis will perform, about 6 L fluid was removed. Pleural fluid was red in color bloody, Metastatic cancer to lung Chest CTA? 10/04/23 14:23 IMPRESSION: 1. No pulmonary embolus. 2. Pulmonary nodules and hilar and mediastinal lymphadenopathy, consistent metastatic disease. 3. Large right and moderate-sized left pleural effusions. 4. Mild pulmonary edema. 5. Hypoenhancement in right lung lower lobe suspicious for pneumonia. Pneumonia Patient has a cough, CT suggest pneumonia continue antibiotic, Congestive heart failure X-ray and CT scan suggest pulmonary edema, bilateral pleural effusion hyponatremia, paraneoplastic, or hypervolemic hyponatremia or ATN Pending serum osmolality Follow urine electrolyte FeNa =1.4% CONSULT STEPDOWN NURSE Patient received hypertonic saline, sodium level trending up Acute heart failure Pulmonary congestion Lasix 40 mg IV once and Lasix 40 mg b.i.d. IV per osteopathic neurologist echocardiogram 10/05 ? 1. Left ventricular chamber dimension is normal. ? 2. Left ventricular systolic function is normal, estimated at 60-65%. ? 3. There is mildly increased left ventricular wall thickness. ? 4. The left ventricular diastolic function is grade I diastolic dysfunction. ? 5. There is mild mitral valve regurgitation. ? 6. There is mild tricuspid valve regurgitation. ? 7. Moderate pulmonary hypertension, estimated pulmonary arterial systolic pressure is 47 mmHg. ? 8. There is mild pulmonic regurgitation. ? 9. The pericardium appears increased echogenicity of the pericardium. ? 10. There is small pericardial effusion. ? 11. Right atrial free wall invagination consistent with elevated pericardial pressure. Human Resources Receptionist changed to furosemide 20 mg b.i.d. p.o. awaiting for transfer to [facility] Subjective Date/time seen: 10/06/23 10:41 Interval history: I saw and examined the patient today
[2023-10-06 11:02] LABS: Sodium 120 mmol/L (137-145)
--- NOTE | 2023-10-06 11:16 | PM.PNNEP ---
Progress Note: A&P Assessment and Plan (1) Hyponatremia: Code(s): E87.1 - Hypo-osmolality and hyponatremia Status: Acute Assessment and Plan: acute versus chronic versus acute on chronic?? etiology multifactorial: fluid/volume overload metastatic cancer/malignancy pneumonia(?) other(?) agree with free water restriction s/p 3% saline x 2 (to get sodium > 120) evaluation to date: TSH and cortisol okay urine electrolytes non-prerenal SPEP and UPEP pending serum/urine osmo pending transition to salt tablets and diuretics goal of therapy is a change if sodium of 6 - 8mmol/L per 24 hours... follow repeat sodium levels (2) Hypoxia: Code(s): R09.02 - Hypoxemia Status: Acute Assessment and Plan: presumably secondary to pulmonary edema and large pleural effusions possible of pneumonia as well? follow culture data on antibiotic on IV diuretics s/p right thoracentesis Echo results noted (3) Breast cancer: Code(s): C50.919 - Malignant neoplasm of unspecified site of unspecified female breast Status: Acute Assessment and Plan: known history of breast cancer in 2020 treated with chemotherapy until October of 2022 -- informed that she was was cancer free however, CT scan shows pulmonary nodules with hilar mediastinal lymphadenopathy suggestive of metastatic disease awaiting for transfer to [facility] (4) Pneumonia: Qualifiers: Laterality: unspecified laterality Lung location: unspecified part of lung Pneumonia type: due to unspecified organism Qualified Code(s): J18.9 - Pneumonia, unspecified organism Code(s): J18.9 - Pneumonia, unspecified organism Status: Acute Assessment and Plan: suggested by admission imaging follow culture data on antibiotics (5) UTI (urinary tract infection): Qualifiers: Hematuria presence: with hematuria Urinary tract infection type: acute cystitis Qualified Code(s): N30.01 - Acute cystitis with hematuria Code(s): N39.0 - Urinary tract infection, site not specified Status: Acute Assessment and Plan: admission UA suggests this follow-up on urine culture on antibiotics (6) Type 2 diabetes mellitus without complications: Qualifiers: Diabetes mellitus keno terminal operator insulin use: without keno terminal operator use Qualified Code(s): E11.9 - Type 2 diabetes mellitus without complications Code(s): E11.9 - Type 2 diabetes mellitus without complications Status: Acute Assessment and Plan: follow accu-cheks glycemic control per hospitalists/intensivists Will continue to follow. Subjective Date/time seen: 10/06/23 11:16 Interval history: Follow-up for hyponatremia. Respiratory status seems to be doing better in general; still requiring supplemental oxygen; sodium has improved with currently therapy; IV access issues noted so PICC line placed; no apparent distress voiced at the time of my visit. Exam Narrative: General: WD/WN Cacuasian female in NAD Heart: normal S1 and S2; no rub Lungs: coarse with decreased breath sounds at bases Abdomen: soft, nontender, nondistended, positive bowel sounds Extremities: no cyanosis or clubbing; 1 - 2+ edema Skin: warm and dry Objective Data Vital Signs Vital Signs: Vital Signs Temp Pulse Resp BP Pulse Ox O2 Del Method O2 Flow Rate 10/06/23 10:00 100 10/06/23 08:00 93 Nasal Cannula 4 10/06/23 08:00 107 H 10/06/23 08:00 97.5 F L 104 H 26 H 131/66 93 10/06/23 06:00 104 H 10/06/23 04:00 98.1 F 107 H 18 111/75 94 10/06/23 04:00 111 H 20 93 Nasal Cannula 4 10/06/23 04:00 111 H 10/06/23 02:52 98 20 10/06/23 02:44 91 17 10/06/23 00:00 101 H 22 H 119/65 93 10/06/23 00:00 97 16 93 Nasal Cannula 4 10/06/23 00:00 97 10/05/23 22:00 95 10/05/23 21:01 98
--- NOTE | 2023-10-06 11:16 | P.PNNP_ITS ---
Progress Note: A&P Assessment and Plan (1) Hyponatremia: Code(s): E87.1 - Hypo-osmolality and hyponatremia Status: Acute Assessment and Plan: * acute versus chronic versus acute on chronic?? * etiology multifactorial: * fluid/volume overload * metastatic cancer/malignancy * pneumonia(?) * other(?) * agree with free water restriction * s/p 3% saline x 2 (to get sodium > 120) * evaluation to date: * TSH and cortisol okay * urine electrolytes non-prerenal * SPEP and UPEP pending * serum/urine osmo pending * transition to salt tablets and diuretics * goal of therapy is a change if sodium of 6 - 8mmol/L per 24 hours... * follow repeat sodium levels (2) Hypoxia: Code(s): R09.02 - Hypoxemia Status: Acute Assessment and Plan: * presumably secondary to pulmonary edema and large pleural effusions * possible of pneumonia as well? * follow culture data * on antibiotic * on IV diuretics * s/p right thoracentesis * Echo results noted (3) Breast cancer: Code(s): C50.919 - Malignant neoplasm of unspecified site of unspecified female breast Status: Acute Assessment and Plan: * known history of breast cancer in 2020 * treated with chemotherapy until October of 2022 -- informed that she was was cancer free * however, CT scan shows pulmonary nodules with hilar mediastinal lymphadenopathy suggestive of metastatic disease * awaiting for transfer to [facility] (4) Pneumonia: Qualifiers: Laterality: unspecified laterality Lung location: unspecified part of lung Pneumonia type: due to unspecified organism Qualified Code(s): J18.9 - Pneumonia, unspecified organism Code(s): J18.9 - Pneumonia, unspecified organism Status: Acute Assessment and Plan: * suggested by admission imaging * follow culture data * on antibiotics (5) UTI (urinary tract infection): Qualifiers: Hematuria presence: with hematuria Urinary tract infection type: acute cystitis Qualified Code(s): N30.01 - Acute cystitis with hematuria Code(s): N39.0 - Urinary tract infection, site not specified Status: Acute Assessment and Plan: * admission UA suggests this * follow-up on urine culture * on antibiotics (6) Type 2 diabetes mellitus without complications: Qualifiers: Diabetes mellitus fpc insulin use: without longwall foreman use Qualified Code(s): E11.9 - Type 2 diabetes mellitus without complications Code(s): E11.9 - Type 2 diabetes mellitus without complications Status: Acute Assessment and Plan: * follow accu-cheks * glycemic control per hospitalists/intensivists Will continue to follow. Subjective Date/time seen: 10/06/23 11:16 Interval history: Follow-up for hyponatremia. Respiratory status seems to be doing better in general; still requiring supplemental oxygen; sodium has improved with currently therapy; IV access issues noted so PICC line placed; no apparent distress voiced at the time of my visit. Exam Narrative: General: WD/WN Cacuasian female in NAD Heart: normal S1 and S2; no rub Lungs: coarse with decreased breath sounds at bases Abdomen: soft, nontender, nondistended, positive bowel sounds Extremities: no cyanosis or clubbing; 1 - 2+ edema Skin: warm and dry Objective Data Vital Signs Vital Signs: V
[2023-10-06] MEDS: LIDOCAINE HCL 1% PF INJ 5 ML VIAL INFILTRATE (11:20)
[2023-10-06 11:35] LABS: Glucose Point of Care 159 mg/dl (65-105)
[2023-10-06] MEDS: levoFLOXacin 750 MG/D5W 150 ML 750 MG/150 ML BAG 100 MG IVPB (14:28)
[2023-10-06] MEDS: CENTRAL LINE FLUSH 10 ML IV PUSH ×2 (14:28→23:37)
--- NOTE | 2023-10-06 14:49 | PC.NURSE ---
levaquin was hung; only 13ml was infused and patient called complaining of itching; Chau (infectious disease pharmacist) wanted to be notified if this happened; Chau stated he would call Dr. Ward to discuss antibiotic changes
[2023-10-06 15:20] LABS: Anion Gap 7 mmol/L (8-16); Blood Urea Nitrogen 12 mg/dL (7-17); Calcium 8.4 mg/dL (8.4-10.2); Carbon Dioxide 28 mmol/L (22-30); Chloride 84 mmol/L (98-107); Estimated CRCL calculation 71 ml/min; Estimated Glomerular Filt Rate > 60; Glucose 192 mg/dL (65-110); Sodium 119 mmol/L (137-145)
[2023-10-06 15:31] LABS: Potassium 3.8 mmol/L (3.4-5.0)
[2023-10-06] MEDS: cefTRIAXone 2 GM/NS 100 ML 2 GM/100 ML BAG IVPB (16:20)
[2023-10-06] MEDS: FUROSEMIDE INJ 40 MG/4 ML VIAL 10 MG IV PUSH (16:20)
[2023-10-06] MEDS: SODIUM CHLORIDE 500 MG TABLET PO (16:20)
[2023-10-06 16:37] LABS: Glucose Point of Care 182 mg/dl (65-105)
[2023-10-06] MEDS: VANCOMYCIN 1,500 MG/NS 500 ML 1,500 MG/500 ML BAG 250 MG IVPB (17:02)
[2023-10-06 19:16] LABS: Anion Gap 6 mmol/L (8-16); Blood Urea Nitrogen 13 mg/dL (7-17); Carbon Dioxide 29 mmol/L (22-30); Chloride 88 mmol/L (98-107); Estimated CRCL calculation 71 ml/min; Estimated Glomerular Filt Rate > 60; Glucose 228 mg/dL (65-110); Potassium 3.5 mmol/L (3.4-5.0); Sodium 123 mmol/L (137-145)
[2023-10-06] MEDS: SIMVASTATIN 20 MG TABLET PO (19:39)
[2023-10-06 21:36] LABS: Glucose Point of Care 196 mg/dl (65-105)
--- NOTE | 2023-10-06 21:39 | PC.NURSE ---
pt HR 127 on monitor Pulse oximetry pleth hr 40. no palpable pulse code called cpr started see code sheet
[2023-10-06] MEDS: DOCUSATE SODIUM 100 MG CAPSULE PO (23:37)
[2023-10-07] VITALS (19 sets, daily range): BP systolic 103–139; BP diastolic 50–95; PULSE 96–123; RESP 14–22; TEMP 36.6–36.9; O2SAT 92–97
[2023-10-07 00:28] LABS: Anion Gap 7 mmol/L (8-16); Blood Urea Nitrogen 13 mg/dL (7-17); Calcium 8.3 mg/dL (8.4-10.2); Carbon Dioxide 26 mmol/L (22-30); Chloride 89 mmol/L (98-107); Estimated CRCL calculation 82 ml/min; Estimated Glomerular Filt Rate > 60; Glucose 198 mg/dL (65-110); Potassium 3.6 mmol/L (3.4-5.0); Sodium 122 mmol/L (137-145)
[2023-10-07] MEDS: IPRATROPIUM 0.5 MG/ALBUTEROL SULFATE 2.5 MG AMPUL.NEB 3 ML INHALATION ×4 (03:31→20:06)
[2023-10-07 04:22] LABS: Basophils Absolute Auto 0.1 K/mm3 (0.0-0.1); Basophils Percent Auto 0.8 % (0.2-1.2); Eosinophils Absolute Auto 0.2 K/mm3 (0-0.3); Hematocrit 32.9 % (37.0-47.0); Hemoglobin 11.4 g/dL (12.0-15.0); Immature Granulocyte Absolute 0.07 K/mm3 (0.00-0.031); Immature Granulocyte Percent A 0.7 % (0-0.5); Lymphocytes Absolute Auto 1.33 K/mm3 (0.9-3.2); Lymphocytes Percent Auto 13.3 % (18.3-44.2); Mean Corpuscular HGB Conc 34.7 g/dl (32-36); Mean Corpuscular Volume 89.4 fl (80-100); Mean Platelet Volume 7.7 fl (7.4-10.4); Monocytes Absolute Auto 1.5 K/mm3 (0.1-0.6); Monocytes Percent Auto 14.9 % (2.6-8.5); Neutrophils Absolute Auto 6.9 K/mm3 (1.3-6.7); Neutrophils Percent Auto 68.3 % (45.5-73.1); Platelet Count Result 146 k/mm3 (150-375); Red Blood Count 3.68 M/mm3 (4.2-5.4); Red Cell Distribution Width 14.2 % (11.5-14.5)
[2023-10-07 04:33] LABS: Alanine Aminotransferase 18 U/L (6-35); Albumin Level 3.5 g/dL (3.5-5.1); Alkaline Phosphatase 73 U/L (38-126); Anion Gap 5 mmol/L (8-16); Aspartate Amino Transferase 45 U/L (14-36); Bilirubin,Total 0.5 mg/dL (0.2-1.3); Blood Urea Nitrogen 12 mg/dL (7-17); Calcium 8.5 mg/dL (8.4-10.2); Carbon Dioxide 29 mmol/L (22-30); Chloride 89 mmol/L (98-107); Estimated CRCL calculation 82 ml/min; Estimated Glomerular Filt Rate > 60; Glucose 178 mg/dL (65-110); Potassium 3.6 mmol/L (3.4-5.0); Sodium 123 mmol/L (137-145)
[2023-10-07] MEDS: CENTRAL LINE FLUSH 10 ML IV PUSH ×3 (04:53→20:04)
[2023-10-07] MEDS: ACETAMINOPHEN 325 MG TABLET 650 MG PO ×3 (06:26→22:33)
[2023-10-07 07:53] LABS: Glucose Point of Care 203 mg/dl (65-105)
--- NOTE | 2023-10-07 08:26 | P.PNNP_ITS ---
Progress Note: A&P Assessment and Plan (1) Hyponatremia: Code(s): E87.1 - Hypo-osmolality and hyponatremia Status: Acute Assessment and Plan: * acute versus chronic versus acute on chronic?? * etiology multifactorial: * fluid/volume overload * metastatic cancer/malignancy * pneumonia(?) * other(?) * agree with free water restriction * s/p 3% saline x 2 (to get sodium > 120) * evaluation to date: * TSH and cortisol okay * urine electrolytes non-prerenal * SPEP and UPEP pending * serum/urine osmo pending * she is currently Lasix 20 b.i.d. and salt tablets 1g b.i.d.. * Sodium level stable in the low 120s. Urine output is just okay. Will increase diuretics and salt tablets. * goal of therapy is a change if sodium of 6 - 8mmol/L per 24 hours... * Check another sodium level this afternoon (2) Hypoxia: Code(s): R09.02 - Hypoxemia Status: Acute Assessment and Plan: * presumably secondary to pulmonary edema and large pleural effusions * possible of pneumonia as well? * follow culture data * on antibiotic * on IV diuretics * s/p right thoracentesis * Echo results noted (3) Breast cancer: Code(s): C50.919 - Malignant neoplasm of unspecified site of unspecified female breast Status: Acute Assessment and Plan: * known history of breast cancer in 2020 * treated with chemotherapy until October of 2022 -- informed that she was was cancer free * however, CT scan shows pulmonary nodules with hilar mediastinal lymphadenopathy suggestive of metastatic disease * awaiting for transfer to [facility] (4) Pneumonia: Qualifiers: Laterality: unspecified laterality Lung location: unspecified part of lung Pneumonia type: due to unspecified organism Qualified Code(s): J18.9 - Pneumonia, unspecified organism Code(s): J18.9 - Pneumonia, unspecified organism Status: Acute Assessment and Plan: * suggested by admission imaging * follow culture data * on antibiotics (5) UTI (urinary tract infection): Qualifiers: Hematuria presence: with hematuria Urinary tract infection type: acute cystitis Qualified Code(s): N30.01 - Acute cystitis with hematuria Code(s): N39.0 - Urinary tract infection, site not specified Status: Acute Assessment and Plan: * admission UA suggests this * follow-up on urine culture * on Zithromax, ceftriaxone, and vancomycin. (6) Type 2 diabetes mellitus without complications: Qualifiers: Diabetes mellitus long term care phlebotomist insulin use: without residential use Qualified Code(s): E11.9 - Type 2 diabetes mellitus without complications Code(s): E11.9 - Type 2 diabetes mellitus without complications Status: Acute Assessment and Plan: * follow accu-cheks * glycemic control per hospitalists/intensivists Subjective Date/time seen: 10/07/23 08:26 Interval history: Cathy is feeling okay today. Getting up to the bathroom. Made about a L of urine overnight Exam Narrative: General: WD/WN Cacuasian female in NAD Heart: normal S1 and S2; no rub or gallop Lungs: coarse with decreased breath sounds at bases Abdomen: soft, nontender, nondistended, positive bowel sounds Extremities: no cyanosis or clubbing; 1 - 2+ edema Skin: no rash Objective Data Vital Signs Vital Signs: Vital Signs - 24 hr 10/06/23
--- NOTE | 2023-10-07 08:26 | PM.PNNEP ---
Progress Note: A&P Assessment and Plan (1) Hyponatremia: Code(s): E87.1 - Hypo-osmolality and hyponatremia Status: Acute Assessment and Plan: acute versus chronic versus acute on chronic?? etiology multifactorial: fluid/volume overload metastatic cancer/malignancy pneumonia(?) other(?) agree with free water restriction s/p 3% saline x 2 (to get sodium > 120) evaluation to date: TSH and cortisol okay urine electrolytes non-prerenal SPEP and UPEP pending serum/urine osmo pending she is currently Lasix 20 b.i.d. and salt tablets 1g b.i.d.. Sodium level stable in the low 120s. Urine output is just okay. Will increase diuretics and salt tablets. goal of therapy is a change if sodium of 6 - 8mmol/L per 24 hours... Check another sodium level this afternoon (2) Hypoxia: Code(s): R09.02 - Hypoxemia Status: Acute Assessment and Plan: presumably secondary to pulmonary edema and large pleural effusions possible of pneumonia as well? follow culture data on antibiotic on IV diuretics s/p right thoracentesis Echo results noted (3) Breast cancer: Code(s): C50.919 - Malignant neoplasm of unspecified site of unspecified female breast Status: Acute Assessment and Plan: known history of breast cancer in 2020 treated with chemotherapy until October of 2022 -- informed that she was was cancer free however, CT scan shows pulmonary nodules with hilar mediastinal lymphadenopathy suggestive of metastatic disease awaiting for transfer to [facility] (4) Pneumonia: Qualifiers: Laterality: unspecified laterality Lung location: unspecified part of lung Pneumonia type: due to unspecified organism Qualified Code(s): J18.9 - Pneumonia, unspecified organism Code(s): J18.9 - Pneumonia, unspecified organism Status: Acute Assessment and Plan: suggested by admission imaging follow culture data on antibiotics (5) UTI (urinary tract infection): Qualifiers: Hematuria presence: with hematuria Urinary tract infection type: acute cystitis Qualified Code(s): N30.01 - Acute cystitis with hematuria Code(s): N39.0 - Urinary tract infection, site not specified Status: Acute Assessment and Plan: admission UA suggests this follow-up on urine culture on Zithromax, ceftriaxone, and vancomycin. (6) Type 2 diabetes mellitus without complications: Qualifiers: Diabetes mellitus penitentiary insulin use: without terminal operator use Qualified Code(s): E11.9 - Type 2 diabetes mellitus without complications Code(s): E11.9 - Type 2 diabetes mellitus without complications Status: Acute Assessment and Plan: follow accu-cheks glycemic control per hospitalists/intensivists Subjective Date/time seen: 10/07/23 08:26 Interval history: Cathy is feeling okay today. Getting up to the bathroom. Made about a L of urine overnight Exam Narrative: General: WD/WN Cacuasian female in NAD Heart: normal S1 and S2; no rub or gallop Lungs: coarse with decreased breath sounds at bases Abdomen: soft, nontender, nondistended, positive bowel sounds Extremities: no cyanosis or clubbing; 1 - 2+ edema Skin: no rash Objective Data Vital Signs Vital Signs: Vital Signs - 24 hr 10/06/23 10:00 10/06/23 12:00 10/06/23 12:00 Temperature Pulse Rate 100 112 H Respiratory Rate Blood Pressure Pulse Oximetry 92 Oxygen Delivery Nasal Cannula Oxygen Flow Rate 4 10/06/23 13:23 10/06/23 13:23 10/06/23 12:00 Temperature 97.9 F Pulse Rate 108 H 114 H Respiratory Rate 22 H 20 Blood Pressure 112/81 Pulse Oximetry 91 95 Oxygen Delivery Nasal Cannula Oxygen Flow Rate 4 10/06/23 13:30 10/06/23 14:00 10/06/23 16:00 Temperature 97.8 F Pulse Rate 110 H 109 H 106 H Respiratory Rate 18 20 Blood Pressure 127/74 Pulse Oximetry
[2023-10-07] MEDS: FLUTICASONE/SALMETEROL 115-21 MCG INHALER 1 PUFF 2 PUFF INHALATION ×2 (08:38→20:06)
--- NOTE | 2023-10-07 08:50 | PC.NURSE ---
Spoke with [facility]. Gave update of patient vital and labs. No bed at this time.
[2023-10-07] MEDS: SODIUM CHLORIDE 1 GM TABLET PO ×2 (08:55→17:08)
[2023-10-07] MEDS: LORATADINE 10 MG TABLET PO (08:55)
[2023-10-07] MEDS: ENOXAPARIN 40 MG/0.4 ML SYRINGE SUB-Q (08:55)
[2023-10-07] MEDS: metFORMIN HCL 500 MG TABLET 1000 MG PO ×2 (08:55→17:08)
[2023-10-07] MEDS: AZITHROMYCIN 250 MG TABLET 500 MG PO (08:55)
[2023-10-07] MEDS: allopurinoL 300 MG TABLET PO (08:56)
[2023-10-07] MEDS: FUROSEMIDE INJ 40 MG/4 ML VIAL IV PUSH ×3 (08:56→20:04)
--- NOTE | 2023-10-07 10:15 | PM.IMPN ---
Progress Note: A&P Assessment and Plan (1) Acute hyponatremia: Code(s): E87.1 - Hypo-osmolality and hyponatremia Status: Acute (2) Pleural effusion on right: Code(s): J90 - Pleural effusion, not elsewhere classified Status: Acute (3) Acute hypoxemic respiratory failure: Code(s): J96.01 - Acute respiratory failure with hypoxia Status: Acute (4) Pneumonia: Qualifiers: Laterality: unspecified laterality Lung location: unspecified part of lung Pneumonia type: due to unspecified organism Qualified Code(s): J18.9 - Pneumonia, unspecified organism Code(s): J18.9 - Pneumonia, unspecified organism Status: Acute (5) Multiple pulmonary nodules: Code(s): R91.8 - Other nonspecific abnormal finding of lung field Status: Acute Plan patient is a 68-year-old female presents to the emergency department complaining of shortness of breath.? Patient states he is feeling short of breath for the past approximately 3 days it is worse with exertion and also admits to source or orthopnea.? Patient is to a cough that is nonproductive of any sputum.? Patient is to history of blood clots in the remote past denies being on blood thinners.? Patient is to low-grade fever in the 99 degree range.? Patient denies use of oxygen at home but was informed that her oxygen levels are low so she is currently on a couple L of oxygen currently.? Patient states that she saw her primary care physician about this couple days ago was placed on antibiotics for possible bronchitis in addition to inhaler present got much relief with her inhaler.? Patient denies any history of heart disease. Acute respiratory failure COPD exacerbation Likely secondary to pneumonia COPD exacerbation Continue Advair 2 puffs b.i.d. Start DuoNeb scheduled albuterol nebulizer as needed Start O2 therapy to keep pulse ox above 93 Hypertension urgency Blood pressure 186/104 Not on medications Start amlodipine 10 mg daily p.o., losartan 50 mg daily p.o. Adjust medication accordingly Pleural effusion Thoracentesis will perform, about 6 L fluid was removed. Pleural fluid was red in color bloody, Metastatic cancer to lung Chest CTA? 10/04/23 14:23 IMPRESSION: 1. No pulmonary embolus. 2. Pulmonary nodules and hilar and mediastinal lymphadenopathy, consistent metastatic disease. 3. Large right and moderate-sized left pleural effusions. 4. Mild pulmonary edema. 5. Hypoenhancement in right lung lower lobe suspicious for pneumonia. Pneumonia Patient has a cough, CT suggest pneumonia continue antibiotic, Congestive heart failure X-ray and CT scan suggest pulmonary edema, bilateral pleural effusion Negative balance 387 mL hyponatremia, paraneoplastic, or hypervolemic hyponatremia or ATN Pending serum osmolality Follow urine electrolyte FeNa =1.4% CONSULT DANCE HALL HOSTESS Patient received hypertonic saline, sodium level trending up Today sodium 123 Acute heart failure Pulmonary congestion Lasix 40 mg IV once and Lasix 40 mg b.i.d. IV per campus security director echocardiogram 10/05 ? 1. Left ventricular chamber dimension is normal. ? 2. Left ventricular systolic function is normal, estimated at 60-65%. ? 3. There is mildly increased left ventricular wall thickness. ? 4. The left ventricular diastolic function is grade I diastolic dysfunction. ? 5. There is mild mitral valve regurgitation. ? 6. There is mild tricuspid valve regurgitation. ? 7. Moderate pulmonary hypertension, estimated pulmonary arterial systolic pressure is 47 mmHg. ? 8. There is mild pulmonic regurgitation. ? 9. The pericardium appears increased echogenicity of the pericardium. ? 10. There is small pericardial effusion. ? 11. Right atrial free wall invagination consistent with elevated pericardial pressure. Catalog Specialist changed to furosemide 20 mg b.i.d. p.o. Discussed the case with oncologist in [facility], they recommend to keep patient in a nurse hospit
[2023-10-07] MEDS: VANCOMYCIN 1,500 MG/NS 500 ML 1,500 MG/500 ML BAG 250 MG IVPB (10:28)
[2023-10-07 10:52] LABS: Anion Gap 4 mmol/L (8-16); Blood Urea Nitrogen 12 mg/dL (7-17); Calcium 8.6 mg/dL (8.4-10.2); Carbon Dioxide 32 mmol/L (22-30); Chloride 88 mmol/L (98-107); Estimated CRCL calculation 71 ml/min; Estimated Glomerular Filt Rate > 60; Glucose 224 mg/dL (65-110); Potassium 3.4 mmol/L (3.4-5.0); Sodium 124 mmol/L (137-145)
[2023-10-07 11:54] LABS: Glucose Point of Care 180 mg/dl (65-105)
[2023-10-07] MEDS: ONDANSETRON INJ 4 MG/2 ML VIAL IV PUSH (13:37)
--- NOTE | 2023-10-07 14:08 | PC.NURSE ---
Spoke with Transfer center and Dr. Santos and patient does not need transfer anymore. Dr. Santos stated to have patient call his office [phone] for a followup at discharge.
[2023-10-07 15:54] LABS: Glucose Point of Care 235 mg/dl (65-105)
--- NOTE | 2023-10-07 16:40 | PC.NURSE ---
This patient, Cathy Glynn, was transferred to [facility] on 10/07/23 at 1632. Personal belongings sent with patient. Report given to Stefan ALAN. Appropriate documentation sent with patient.
[2023-10-07] MEDS: cefTRIAXone 2 GM/NS 100 ML 2 GM/100 ML BAG IVPB (17:08)
--- NOTE | 2023-10-07 17:21 | PC.NURSE ---
Patient stated she did not want sub Q insulin than she would prefer to take oral metformin and recheck sugar tonight. RN educated patient on the importance of managing blood sugar.
[2023-10-07 17:23] LABS: Sodium 125 mmol/L (137-145)
[2023-10-07 20:01] LABS: Osmolality, Urine 556 mOsm/kg (50-1200)
[2023-10-07] MEDS: NITROFURANTOIN MONOHYD MACROCR 100 MG CAP PO (20:03)
[2023-10-07] MEDS: SIMVASTATIN 20 MG TABLET PO (20:03)
[2023-10-07] MEDS: INSULIN ASPART (*BKC) 100 UNITS/ML SUB-Q (20:13)
[2023-10-07 20:42] LABS: Glucose Point of Care 252 mg/dl (65-105)
--- NOTE | 2023-10-07 23:55 | PC.NURSE ---
Patient was being cleaned up in a chair in the room and the PCT stepped out to grab a supply and when he arrived back to the room pt was found to be at the sink filling up her water and drinking it. Pt is on a fluid restriction and has already had her alloted water for the shift. Pt educated on importance of fluid restriction and monitoring strict Is&Os. Pt returned to bed with bed alarm on and call light in reach.
[2023-10-08] VITALS (18 sets, daily range): BP systolic 115–141; BP diastolic 73–78; PULSE 78–129; RESP 16–24; TEMP 36.3–36.7; O2SAT 92–95
[2023-10-08] MEDS: IPRATROPIUM 0.5 MG/ALBUTEROL SULFATE 2.5 MG AMPUL.NEB 3 ML INHALATION ×4 (03:45→19:35)
--- NOTE | 2023-10-08 03:48 | PCRCNOTE ---
Patient initially had asked to not be awakened for 0200 updraft treatment. RT instructed pt to call if sob. Pt called @ 0340 requesting treatment, RT administering.
[2023-10-08] MEDS: FUROSEMIDE INJ 40 MG/4 ML VIAL IV PUSH ×2 (04:54→14:33)
[2023-10-08] MEDS: CENTRAL LINE FLUSH 10 ML IV PUSH ×2 (04:54→14:31)
[2023-10-08 05:51] LABS: Basophils Absolute Auto 0.1 K/mm3 (0.0-0.1); Basophils Percent Auto 0.8 % (0.2-1.2); Eosinophils Absolute Auto 0.2 K/mm3 (0-0.3); Eosinophils Percent Auto 1.4 % (0-4.4); Hematocrit 34.3 % (37.0-47.0); Hemoglobin 11.9 g/dL (12.0-15.0); Immature Granulocyte Absolute 0.07 K/mm3 (0.00-0.031); Immature Granulocyte Percent A 0.5 % (0-0.5); Lymphocytes Absolute Auto 1.51 K/mm3 (0.9-3.2); Lymphocytes Percent Auto 11.9 % (18.3-44.2); Mean Corpuscular HGB Conc 34.7 g/dl (32-36); Mean Corpuscular Hemoglobin 31.2 pg (26-34); Monocytes Percent Auto 15.4 % (2.6-8.5); Neutrophils Absolute Auto 8.9 K/mm3 (1.3-6.7); Platelet Count Result 166 k/mm3 (150-375); Red Blood Count 3.81 M/mm3 (4.2-5.4); Red Cell Distribution Width 13.9 % (11.5-14.5); White Blood Count 12.7 K/mm3 (4.5-10.0)
[2023-10-08 06:01] LABS: Alanine Aminotransferase 18 U/L (6-35); Albumin Level 3.7 g/dL (3.5-5.1); Alkaline Phosphatase 74 U/L (38-126); Anion Gap 4 mmol/L (8-16); Aspartate Amino Transferase 34 U/L (14-36); Bilirubin,Total 0.5 mg/dL (0.2-1.3); Blood Urea Nitrogen 15 mg/dL (7-17); Calcium 9.1 mg/dL (8.4-10.2); Carbon Dioxide 32 mmol/L (22-30); Chloride 91 mmol/L (98-107); Estimated CRCL calculation 82 ml/min; Estimated Glomerular Filt Rate > 60; Glucose 226 mg/dL (65-110); Phosphorus 3.7 mg/dL (2.5-4.5); Potassium 3.1 mmol/L (3.4-5.0); Sodium 127 mmol/L (137-145)
[2023-10-08 08:26] LABS: Glucose Point of Care 231 mg/dl (65-105)
[2023-10-08] MEDS: ACETAMINOPHEN 325 MG TABLET 650 MG PO ×4 (08:48→23:09)
[2023-10-08] MEDS: ENOXAPARIN 40 MG/0.4 ML SYRINGE SUB-Q (08:53)
[2023-10-08] MEDS: allopurinoL 300 MG TABLET PO (08:54)
[2023-10-08] MEDS: AZITHROMYCIN 250 MG TABLET 500 MG PO (08:55)
[2023-10-08] MEDS: NITROFURANTOIN MONOHYD MACROCR 100 MG CAP PO ×2 (08:55→20:21)
[2023-10-08] MEDS: SODIUM CHLORIDE 1 GM TABLET PO ×2 (08:55→16:34)
[2023-10-08] MEDS: LORATADINE 10 MG TABLET PO (08:55)
[2023-10-08] MEDS: metFORMIN HCL 500 MG TABLET 1000 MG PO ×2 (08:56→16:34)
[2023-10-08] MEDS: INSULIN ASPART (*BKC) 100 UNITS/ML SUB-Q ×3 (08:57→21:25)
[2023-10-08] MEDS: FLUTICASONE/SALMETEROL 115-21 MCG INHALER 1 PUFF 2 PUFF INHALATION ×2 (09:34→19:35)
--- NOTE | 2023-10-08 10:30 | P.PNNP_ITS ---
Progress Note: A&P Assessment and Plan (1) Hyponatremia: Code(s): E87.1 - Hypo-osmolality and hyponatremia Status: Acute Assessment and Plan: * acute versus chronic versus acute on chronic?? * etiology multifactorial: * fluid/volume overload * metastatic cancer/malignancy * pneumonia(?) * other(?) * evaluation to date: * TSH and cortisol okay * urine electrolytes non-prerenal * SPEP and UPEP pending * serum/urine osmo pending * she is currently on Lasix 40 Q 8 and salt tablets 1g Q 8. * Sodium tre gradually and is now up to 127. * From the sodium standpoint she is very close to discharge. If she does get discharged she should go home on Lasix 40mg twice a day and salt tablet 1g twice a Day. I told her that we could see her in the office to help manage the sodium. She does not really want to do that because she has so many doctors. Another possibility is that she could just be followed by her primary care physician. She does need sodium chloride tablets along with any dose of Lasix she gets going forward. So if the Lasix is held she should hold the sodium chloride and if the Lasix is a restarted or given more or less frequency she should adjust the sodium chloride tab accordingly. (2) Hypoxia: Code(s): R09.02 - Hypoxemia Status: Acute Assessment and Plan: * presumably secondary to pulmonary edema and large pleural effusions * possible of pneumonia as well? * follow culture data * on antibiotic * on IV diuretics * s/p right thoracentesis (3) Breast cancer: Code(s): C50.919 - Malignant neoplasm of unspecified site of unspecified female breast Status: Acute Assessment and Plan: * known history of breast cancer in 2020 * treated with chemotherapy until October of 2022 -- informed that she was was cancer free * however, CT scan shows pulmonary nodules with hilar mediastinal lymphadenopathy suggestive of metastatic disease * awaiting for transfer to [facility] * She plans to go to [facility] as soon as she gets out of the hospital if she does not make it over there as an inpatient. (4) Pneumonia: Qualifiers: Laterality: unspecified laterality Lung location: unspecified part of lung Pneumonia type: due to unspecified organism Qualified Code(s): J18.9 - Pneumonia, unspecified organism Code(s): J18.9 - Pneumonia, unspecified organism Status: Acute Assessment and Plan: * suggested by admission imaging * follow culture data * on Zithromax plus ceftriaxone. (5) UTI (urinary tract infection): Qualifiers: Hematuria presence: with hematuria Urinary tract infection type: acute cystitis Qualified Code(s): N30.01 - Acute cystitis with hematuria Code(s): N39.0 - Urinary tract infection, site not specified Status: Acute Assessment and Plan: * admission UA suggests this * Enterococcus in the urine sensitive to ampicillin nitrofurantoin and vancomycin. She is allergic to penicillin. * on Zithromax, ceftriaxone, and vancomycin. (6) Type 2 diabetes mellitus without complications: Qualifiers: Diabetes mellitus terminal manager insulin use: without alf use Qualified Code(s): E11.9 - Type 2 diabetes mellitus without complications Code(s): E11.9 - Type 2 diabetes mellitus without complications Status: Acute Assessment and Plan: * follow accu-cheks * glycemic control per hospitalists/intensivists Subjective Date/time seen: 10/08/23 10:30
--- NOTE | 2023-10-08 10:30 | PM.PNNEP ---
Progress Note: A&P Assessment and Plan (1) Hyponatremia: Code(s): E87.1 - Hypo-osmolality and hyponatremia Status: Acute Assessment and Plan: acute versus chronic versus acute on chronic?? etiology multifactorial: fluid/volume overload metastatic cancer/malignancy pneumonia(?) other(?) evaluation to date: TSH and cortisol okay urine electrolytes non-prerenal SPEP and UPEP pending serum/urine osmo pending she is currently on Lasix 40 Q 8 and salt tablets 1g Q 8. Sodium tre gradually and is now up to 127. From the sodium standpoint she is very close to discharge. If she does get discharged she should go home on Lasix 40mg twice a day and salt tablet 1g twice a Day. I told her that we could see her in the office to help manage the sodium. She does not really want to do that because she has so many doctors. Another possibility is that she could just be followed by her primary care physician. She does need sodium chloride tablets along with any dose of Lasix she gets going forward. So if the Lasix is held she should hold the sodium chloride and if the Lasix is a restarted or given more or less frequency she should adjust the sodium chloride tab accordingly. (2) Hypoxia: Code(s): R09.02 - Hypoxemia Status: Acute Assessment and Plan: presumably secondary to pulmonary edema and large pleural effusions possible of pneumonia as well? follow culture data on antibiotic on IV diuretics s/p right thoracentesis (3) Breast cancer: Code(s): C50.919 - Malignant neoplasm of unspecified site of unspecified female breast Status: Acute Assessment and Plan: known history of breast cancer in 2020 treated with chemotherapy until October of 2022 -- informed that she was was cancer free however, CT scan shows pulmonary nodules with hilar mediastinal lymphadenopathy suggestive of metastatic disease awaiting for transfer to [facility] She plans to go to [facility] as soon as she gets out of the hospital if she does not make it over there as an inpatient. (4) Pneumonia: Qualifiers: Laterality: unspecified laterality Lung location: unspecified part of lung Pneumonia type: due to unspecified organism Qualified Code(s): J18.9 - Pneumonia, unspecified organism Code(s): J18.9 - Pneumonia, unspecified organism Status: Acute Assessment and Plan: suggested by admission imaging follow culture data on Zithromax plus ceftriaxone. (5) UTI (urinary tract infection): Qualifiers: Hematuria presence: with hematuria Urinary tract infection type: acute cystitis Qualified Code(s): N30.01 - Acute cystitis with hematuria Code(s): N39.0 - Urinary tract infection, site not specified Status: Acute Assessment and Plan: admission UA suggests this Enterococcus in the urine sensitive to ampicillin nitrofurantoin and vancomycin. She is allergic to penicillin. on Zithromax, ceftriaxone, and vancomycin. (6) Type 2 diabetes mellitus without complications: Qualifiers: Diabetes mellitus long-term insulin use: without long-term use Qualified Code(s): E11.9 - Type 2 diabetes mellitus without complications Code(s): E11.9 - Type 2 diabetes mellitus without complications Status: Acute Assessment and Plan: follow accu-cheks glycemic control per hospitalists/intensivists Subjective Date/time seen: 10/08/23 10:30 Interval history: Cathy is a very pleasant 68-year-old lady. She is a little bit less short of breath she is wondering if she is going to get a thoracentesis on the left side. She made a lot of urine last night. Exam Narrative: General: WD/WN Cacuasian female in NAD Heart: normal S1 and S2; no rub Lungs: coarse with decreased breath sounds at bases . Abdomen: soft, nontender, nondistended, positive bowel sounds Extremities: n1
[2023-10-08 12:04] LABS: Glucose Point of Care 196 mg/dl (65-105)
[2023-10-08] MEDS: cefTRIAXone 2 GM/NS 100 ML 2 GM/100 ML BAG IVPB (16:35)
--- NOTE | 2023-10-08 17:11 | PM.IMPN ---
Progress Note: A&P Assessment and Plan (1) Acute hyponatremia: Code(s): E87.1 - Hypo-osmolality and hyponatremia Status: Acute (2) Pleural effusion on right: Code(s): J90 - Pleural effusion, not elsewhere classified Status: Acute (3) Acute hypoxemic respiratory failure: Code(s): J96.01 - Acute respiratory failure with hypoxia Status: Acute (4) Pneumonia: Qualifiers: Laterality: unspecified laterality Lung location: unspecified part of lung Pneumonia type: due to unspecified organism Qualified Code(s): J18.9 - Pneumonia, unspecified organism Code(s): J18.9 - Pneumonia, unspecified organism Status: Acute (5) Multiple pulmonary nodules: Code(s): R91.8 - Other nonspecific abnormal finding of lung field Status: Acute Plan patient is a 68-year-old female presents to the emergency department complaining of shortness of breath.? Patient states he is feeling short of breath for the past approximately 3 days it is worse with exertion and also admits to source or orthopnea.? Patient is to a cough that is nonproductive of any sputum.? Patient is to history of blood clots in the remote past denies being on blood thinners.? Patient is to low-grade fever in the 99 degree range.? Patient denies use of oxygen at home but was informed that her oxygen levels are low so she is currently on a couple L of oxygen currently.? Patient states that she saw her primary care physician about this couple days ago was placed on antibiotics for possible bronchitis in addition to inhaler present got much relief with her inhaler.? Patient denies any history of heart disease. Acute respiratory failure COPD exacerbation Likely secondary to pneumonia COPD exacerbation Continue Advair 2 puffs b.i.d. Start DuoNeb scheduled albuterol nebulizer as needed Start O2 therapy to keep pulse ox above 93 Hypertension urgency Blood pressure 186/104 Not on medications Start amlodipine 10 mg daily p.o., losartan 50 mg daily p.o. Adjust medication accordingly Pleural effusion Thoracentesis will perform, about 6 L fluid was removed. Pleural fluid was red in color bloody, Metastatic cancer to lung Chest CTA? 10/04/23 14:23 IMPRESSION: 1. No pulmonary embolus. 2. Pulmonary nodules and hilar and mediastinal lymphadenopathy, consistent metastatic disease. 3. Large right and moderate-sized left pleural effusions. 4. Mild pulmonary edema. 5. Hypoenhancement in right lung lower lobe suspicious for pneumonia. Pneumonia Patient has a cough, CT suggest pneumonia continue antibiotic, Congestive heart failure X-ray and CT scan suggest pulmonary edema, bilateral pleural effusion Negative balance 387 mL hyponatremia, paraneoplastic, or hypervolemic hyponatremia or ATN Pending serum osmolality Follow urine electrolyte FeNa =1.4% CONSULT MANAGER ORANGE Patient received hypertonic saline, sodium level trending up Today sodium 123 10/08/23: Nephrology onboard; Na 131 Acute heart failure Pulmonary congestion Lasix 40 mg IV once and Lasix 40 mg b.i.d. IV per swage toolsetter echocardiogram 10/05 ? 1. Left ventricular chamber dimension is normal. ? 2. Left ventricular systolic function is normal, estimated at 60-65%. ? 3. There is mildly increased left ventricular wall thickness. ? 4. The left ventricular diastolic function is grade I diastolic dysfunction. ? 5. There is mild mitral valve regurgitation. ? 6. There is mild tricuspid valve regurgitation. ? 7. Moderate pulmonary hypertension, estimated pulmonary arterial systolic pressure is 47 mmHg. ? 8. There is mild pulmonic regurgitation. ? 9. The pericardium appears increased echogenicity of the pericardium. ? 10. There is small pericardial effusion. ? 11. Right atrial free wall invagination consistent with elevated pericardial pressure. Audio Visual Collections Coordinator changed to furosemide 20 mg b.i.d. p.o. Time Spent With Patient Time with patient: 25 - 35 minutes Subje
[2023-10-08 17:21] LABS: Sodium 131 mmol/L (137-145)
[2023-10-08 17:27] LABS: Glucose Point of Care 252 mg/dl (65-105)
[2023-10-08] MEDS: SIMVASTATIN 20 MG TABLET PO (20:21)
[2023-10-08 20:48] LABS: Glucose Point of Care 243 mg/dl (65-105)
--- NOTE | 2023-10-08 23:32 | PM.EVENT ---
Event Note Event Note Event Note: Cross Coverage: Patient has been intermittently tachycardic with a rate of 120 stool 130s. Has been getting scheduled albuterol treatments. Exchange albuterol to levalbuterol and continue Atrovent. Also reporting insomnia, adding melatonin 3 mg HS.
[2023-10-09] VITALS (15 sets, daily range): BP systolic 128–140; BP diastolic 46–86; PULSE 109–126; RESP 16–26; TEMP 36.4–37.1; O2SAT 89–95
[2023-10-09] MEDS: MELATONIN 3 MG TABLET PO ×2 (00:41→20:43)
[2023-10-09] MEDS: CENTRAL LINE FLUSH 10 ML IV PUSH ×4 (00:41→22:55)
--- NOTE | 2023-10-09 04:31 | PCRCNOTE ---
Pt did not want to be awakened for her 0200 breathing tx. Next scheduled tx at 0800 will be given.
[2023-10-09 05:13] LABS: Basophils Absolute Auto 0.1 K/mm3 (0.0-0.1); Basophils Percent Auto 0.8 % (0.2-1.2); Eosinophils Absolute Auto 0.2 K/mm3 (0-0.3); Eosinophils Percent Auto 1.3 % (0-4.4); Hematocrit 31.6 % (37.0-47.0); Hemoglobin 10.6 g/dL (12.0-15.0); Immature Granulocyte Absolute 0.09 K/mm3 (0.00-0.031); Immature Granulocyte Percent A 0.7 % (0-0.5); Lymphocytes Absolute Auto 1.08 K/mm3 (0.9-3.2); Lymphocytes Percent Auto 8.7 % (18.3-44.2); Mean Corpuscular HGB Conc 33.5 g/dl (32-36); Mean Corpuscular Hemoglobin 30.7 pg (26-34); Mean Corpuscular Volume 91.6 fl (80-100); Monocytes Absolute Auto 1.9 K/mm3 (0.1-0.6); Neutrophils Absolute Auto 9.2 K/mm3 (1.3-6.7); Neutrophils Percent Auto 73.5 % (45.5-73.1); Platelet Count Result 138 k/mm3 (150-375); Red Blood Count 3.45 M/mm3 (4.2-5.4); Red Cell Distribution Width 13.8 % (11.5-14.5); White Blood Count 12.5 K/mm3 (4.5-10.0)
[2023-10-09 05:33] LABS: Alanine Aminotransferase 16 U/L (6-35); Albumin Level 3.6 g/dL (3.5-5.1); Alkaline Phosphatase 63 U/L (38-126); Anion Gap 7 mmol/L (8-16); Aspartate Amino Transferase 31 U/L (14-36); Bilirubin,Total 0.5 mg/dL (0.2-1.3); Blood Urea Nitrogen 17 mg/dL (7-17); Calcium 8.7 mg/dL (8.4-10.2); Carbon Dioxide 30 mmol/L (22-30); Chloride 94 mmol/L (98-107); Estimated CRCL calculation 97 ml/min; Estimated Glomerular Filt Rate > 60; Glucose 248 mg/dL (65-110); Phosphorus 3.6 mg/dL (2.5-4.5); Sodium 131 mmol/L (137-145)
[2023-10-09] MEDS: ACETAMINOPHEN 325 MG TABLET 650 MG PO ×4 (06:32→21:15)
[2023-10-09] MEDS: FLUTICASONE/SALMETEROL 115-21 MCG INHALER 1 PUFF 2 PUFF INHALATION ×2 (07:46→19:15)
[2023-10-09 07:47] LABS: Glucose Point of Care 256 mg/dl (65-105)
[2023-10-09] MEDS: ONDANSETRON INJ 4 MG/2 ML VIAL IV PUSH (08:20)
--- NOTE | 2023-10-09 08:43 | PM.CNCAR ---
Assessment and Plan Assessment and plan (1) Tachycardia: Code(s): R00.0 - Tachycardia, unspecified Status: Acute Plan This is a 68-year-old lady who is being seen because of tachycardia. What we are seeing I believe is a physiologic tachycardia, not a pathologic arrhythmia since nothing sinus rhythm has been identified. This is likely result of her chest malignancy and hypoxemia. It is also probably contributed to by bronchodilators. She does have a small circumferential pericardial effusion but has no physical exam findings suggestive of tamponade physiology. At this point I do not believe there is any further cardiac workup that is necessary. Her tachycardia is physiologic, not pathologic Jose De Jesus Jackson MD [facility] History of Present Illness History of Present Illness Consult date/time: 10/09/23 08:43 Reason For Visit: Hyponatremia Narrative: This is a very pleasant but unfortunate 68-year-old lady I am seeing at the request of the hospitalist because of tachycardia. She does not have any prior history of cardiac problems and I was hospitalized several days ago with symptoms of coughing and shortness of breath that were felt to be related to a respiratory infection/bronchitis for the last couple of weeks and were made being treated by her PCP with antibiotics. She came to the emergency room for evaluation as she was not getting better were evaluation with chest x-ray and subsequent CT of the chest demonstrated evidence of what appears to be metastatic disease in the chest presumably related to prior history of breast cancer. The lady has a history of breast cancer and has been treated at [facility] in [place] and last year completed radiation and chemotherapy after surgery. She thought she was doing well and was free of cancer. While she has been in the hospital she has generally been in a sinus tachycardia with heart rates in the 100-110 range at times her heart rate is as fast as 130 however all the rhythm strips demonstrates sinus rhythm, no pathological or problematic arrhythmias have been identified. She did have an echocardiogram performed and read by my partner, Dr. Najera as demonstrating a small circumferential pericardial effusion otherwise she did not have any structural heart problems in her left ventricular systolic function looks normal. She had been receiving some beta agonist bronchodilator therapy which has been adjusted because of this tachycardia as well. This morning she has some symptoms of nausea and generalized weakness but does not otherwise have any immediate complaints and she is visiting with her when I came in the room to see her. Review of Systems Constitutional: Constitutional: Reports fatigue Eyes: Eyes: Reports no additional eye complaints ENT: Reports system reviewed and no additional complaints, except as documented Cardiovascular: Cardiovascular: Reports no additional cardiovascular complaints Respiratory: Respiratory: Reports cough and Reports dyspnea Gastrointestinal: Gastrointestinal: Reports no additional gastrointestinal complaints Musculoskeletal: Musculoskeletal: Reports no additional musculoskeletal complaints Integumentary/Breasts: Skin/Breast: Reports system reviewed and no additional complaints, except as docu Neurologic: Reports system reviewed and no additional complaints, except as documented Endocrine: Endocrine: Reports no additional endocrine complaints Hematologic/Lymphatic: Hematologic/Lymphatic: Reports no additional hematologic/lymphatic complaints Allergic/Immunologic: Allergic/Immunologic: Reports no additional allergic/immunologic complaints [facility] Past Medical History Medical History Arthritis of shoulder region, 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
[2023-10-09] MEDS: INSULIN ASPART (*BKC) 100 UNITS/ML SUB-Q ×4 (09:02→20:46)
[2023-10-09] MEDS: allopurinoL 300 MG TABLET PO (09:03)
[2023-10-09] MEDS: ENOXAPARIN 40 MG/0.4 ML SYRINGE SUB-Q (09:03)
[2023-10-09] MEDS: AZITHROMYCIN 250 MG TABLET 500 MG PO (09:03)
[2023-10-09] MEDS: LORATADINE 10 MG TABLET PO (09:04)
[2023-10-09] MEDS: FUROSEMIDE INJ 40 MG/4 ML VIAL IV PUSH ×2 (09:04→17:39)
[2023-10-09] MEDS: metFORMIN HCL 500 MG TABLET 1000 MG PO ×2 (09:04→17:39)
[2023-10-09] MEDS: SODIUM CHLORIDE 1 GM TABLET PO ×2 (09:04→17:39)
[2023-10-09] MEDS: NITROFURANTOIN MONOHYD MACROCR 100 MG CAP PO ×2 (09:04→20:42)
--- NOTE | 2023-10-09 09:22 | P.PNNP_ITS ---
Progress Note: A&P Assessment and Plan (1) Hyponatremia: Code(s): E87.1 - Hypo-osmolality and hyponatremia Status: Acute Assessment and Plan: * acute versus chronic versus acute on chronic?? * etiology multifactorial: * fluid/volume overload * metastatic cancer/malignancy * pneumonia(?) * other(?) * evaluation to date: * TSH and cortisol okay * urine electrolytes non-prerenal * SPEP and UPEP pending * serum/urine osmo pending * she is currently on Lasix 40 Q 8 and salt tablets 1g Q 8. * Last night the creatinine jumped up to 131. * With improvement in swelling Lasix reduced to twice a day. * Since her sodium is above 130 she can probably go home from the kidney standpoint. * Her chest x-ray is still showing some excess fluid. How much of this needs to be treated in the hospital versus out of the hospital will be left up to the hospitalist. * Currently she is getting furosemide 40 b.i.d. IV plus salt tabs 1000mg b.i.d.. If she goes home I reiterated to her that she should get 1 salt tablet with every dose of diuretics to keep her sodium level up. (2) Hypoxia: Code(s): R09.02 - Hypoxemia Status: Acute Assessment and Plan: * presumably secondary to pulmonary edema and large pleural effusions * possible of pneumonia as well? * follow culture data * on Zithromax and ceftriaxone. * on IV diuretics * Still getting 2L of oxygen. (3) Breast cancer: Code(s): C50.919 - Malignant neoplasm of unspecified site of unspecified female breast Status: Acute Assessment and Plan: * known history of breast cancer in 2020 * treated with chemotherapy until October of 2022 -- informed that she was was cancer free * however, CT scan shows pulmonary nodules with hilar mediastinal lymph adenopathy suggestive of metastatic disease * awaiting for transfer to [facility] * She plans to go to [facility] as soon as she gets out of the hospital if she does not make it over there as an inpatient. (4) Pneumonia: Qualifiers: Laterality: unspecified laterality Lung location: unspecified part of lung Pneumonia type: due to unspecified organism Qualified Code(s): J18.9 - Pneumonia, unspecified organism Code(s): J18.9 - Pneumonia, unspecified organism Status: Acute Assessment and Plan: * suggested by admission imaging * follow culture data * on Zithromax plus ceftriaxone. (5) UTI (urinary tract infection): Qualifiers: Hematuria presence: with hematuria Urinary tract infection type: acute cystitis Qualified Code(s): N30.01 - Acute cystitis with hematuria Code(s): N39.0 - Urinary tract infection, site not specified Status: Acute Assessment and Plan: * admission UA suggests this * Enterococcus in the urine sensitive to ampicillin nitrofurantoin and vancomycin. She is allergic to penicillin. * on Zithromax, ceftriaxone and nitrofurantoin (6) Type 2 diabetes mellitus without complications: Qualifiers: Diabetes mellitus detention insulin use: without tank terminal gauger use Qualified Code(s): E11.9 - Type 2 diabetes mellitus without complications Code(s): E11.9 - Type 2 diabetes mellitus without complications Status: Acute Assessment and Plan: * follow accu-cheks * glycemic control per hospitalists/intensivists Subjective Date/time seen: 10/09/23 09:22 Interval history: Patient feels about the same. Swelling is better.
--- NOTE | 2023-10-09 09:22 | PM.PNNEP ---
Progress Note: A&P Assessment and Plan (1) Hyponatremia: Code(s): E87.1 - Hypo-osmolality and hyponatremia Status: Acute Assessment and Plan: acute versus chronic versus acute on chronic?? etiology multifactorial: fluid/volume overload metastatic cancer/malignancy pneumonia(?) other(?) evaluation to date: TSH and cortisol okay urine electrolytes non-prerenal SPEP and UPEP pending serum/urine osmo pending she is currently on Lasix 40 Q 8 and salt tablets 1g Q 8. Last night the creatinine jumped up to 131. With improvement in swelling Lasix reduced to twice a day. Since her sodium is above 130 she can probably go home from the kidney standpoint. Her chest x-ray is still showing some excess fluid. How much of this needs to be treated in the hospital versus out of the hospital will be left up to the hospitalist. Currently she is getting furosemide 40 b.i.d. IV plus salt tabs 1000mg b.i.d.. If she goes home I reiterated to her that she should get 1 salt tablet with every dose of diuretics to keep her sodium level up. (2) Hypoxia: Code(s): R09.02 - Hypoxemia Status: Acute Assessment and Plan: presumably secondary to pulmonary edema and large pleural effusions possible of pneumonia as well? follow culture data on Zithromax and ceftriaxone. on IV diuretics Still getting 2L of oxygen. (3) Breast cancer: Code(s): C50.919 - Malignant neoplasm of unspecified site of unspecified female breast Status: Acute Assessment and Plan: known history of breast cancer in 2020 treated with chemotherapy until October of 2022 -- informed that she was was cancer free however, CT scan shows pulmonary nodules with hilar mediastinal lymphadenopathy suggestive of metastatic disease awaiting for transfer to [facility] She plans to go to [facility] as soon as she gets out of the hospital if she does not make it over there as an inpatient. (4) Pneumonia: Qualifiers: Laterality: unspecified laterality Lung location: unspecified part of lung Pneumonia type: due to unspecified organism Qualified Code(s): J18.9 - Pneumonia, unspecified organism Code(s): J18.9 - Pneumonia, unspecified organism Status: Acute Assessment and Plan: suggested by admission imaging follow culture data on Zithromax plus ceftriaxone. (5) UTI (urinary tract infection): Qualifiers: Hematuria presence: with hematuria Urinary tract infection type: acute cystitis Qualified Code(s): N30.01 - Acute cystitis with hematuria Code(s): N39.0 - Urinary tract infection, site not specified Status: Acute Assessment and Plan: admission UA suggests this Enterococcus in the urine sensitive to ampicillin nitrofurantoin and vancomycin. She is allergic to penicillin. on Zithromax, ceftriaxone and nitrofurantoin (6) Type 2 diabetes mellitus without complications: Qualifiers: Diabetes mellitus mcc insulin use: without termite technician use Qualified Code(s): E11.9 - Type 2 diabetes mellitus without complications Code(s): E11.9 - Type 2 diabetes mellitus without complications Status: Acute Assessment and Plan: follow accu-cheks glycemic control per hospitalists/intensivists Subjective Date/time seen: 10/09/23 09:22 Interval history: Patient feels about the same. Swelling is better. Not very short of breath. Exam Narrative: General: WD/WN Cacuasian female in NAD Heart: normal S1 and S2; no rub Lungs: Good air movement. Fairly clear except for the decreased breath sounds at the bases. Abdomen: soft, nontender, nondistended, positive bowel sounds Extremities: 1+ edema bilaterally Skin: no rash Objective Data Vital Signs Vital Signs: Vital Signs - 24 hr 10/08/23 09:31 10/08/23 09:31 10/08/23 09:44 Temperature Pulse Rate 124 H
[2023-10-09 11:24] LABS: Glucose Point of Care 257 mg/dl (65-105)
--- NOTE | 2023-10-09 12:34 | PM.IMPN ---
Progress Note: A&P Assessment and Plan (1) Acute hyponatremia: Code(s): E87.1 - Hypo-osmolality and hyponatremia Status: Acute (2) Pleural effusion on right: Code(s): J90 - Pleural effusion, not elsewhere classified Status: Acute (3) Acute hypoxemic respiratory failure: Code(s): J96.01 - Acute respiratory failure with hypoxia Status: Acute (4) Pneumonia: Qualifiers: Laterality: unspecified laterality Lung location: unspecified part of lung Pneumonia type: due to unspecified organism Qualified Code(s): J18.9 - Pneumonia, unspecified organism Code(s): J18.9 - Pneumonia, unspecified organism Status: Acute (5) Multiple pulmonary nodules: Code(s): R91.8 - Other nonspecific abnormal finding of lung field Status: Acute Plan patient is a 68-year-old female presents to the emergency department complaining of shortness of breath.? Patient states he is feeling short of breath for the past approximately 3 days it is worse with exertion and also admits to source or orthopnea.? Patient is to a cough that is nonproductive of any sputum.? Patient is to history of blood clots in the remote past denies being on blood thinners.? Patient is to low-grade fever in the 99 degree range.? Patient denies use of oxygen at home but was informed that her oxygen levels are low so she is currently on a couple L of oxygen currently.? Patient states that she saw her primary care physician about this couple days ago was placed on antibiotics for possible bronchitis in addition to inhaler present got much relief with her inhaler.? Patient denies any history of heart disease. Acute respiratory failure COPD exacerbation Likely secondary to pneumonia COPD exacerbation Continue Advair 2 puffs b.i.d. Start DuoNeb scheduled albuterol nebulizer as needed Start O2 therapy to keep pulse ox above 93 Hypertension urgency Blood pressure 186/104 Not on medications Start amlodipine 10 mg daily p.o., losartan 50 mg daily p.o. Adjust medication accordingly Pleural effusion Thoracentesis performed, about 6 L fluid was removed. Pleural fluid was red in color bloody, 10/09/23: Will perform a thoracentesis tomorrow. Metastatic cancer to lung Chest CTA? 10/04/23 14:23 IMPRESSION: 1. No pulmonary embolus. 2. Pulmonary nodules and hilar and mediastinal lymphadenopathy, consistent metastatic disease. 3. Large right and moderate-sized left pleural effusions. 4. Mild pulmonary edema. 5. Hypoenhancement in right lung lower lobe suspicious for pneumonia. Pneumonia Patient has a cough, CT suggest pneumonia continue antibiotic, Congestive heart failure X-ray and CT scan suggest pulmonary edema, bilateral pleural effusion Negative balance 387 mL hyponatremia, paraneoplastic, or hypervolemic hyponatremia or ATN Pending serum osmolality Follow urine electrolyte FeNa =1.4% CONSULT SLOTS MANAGER Patient received hypertonic saline, sodium level trending up Today sodium 123 10/08/23: Nephrology onboard; Na 131 Acute heart failure Pulmonary congestion Lasix 40 mg IV once and Lasix 40 mg b.i.d. IV per poultry scalder echocardiogram 10/05 ? 1. Left ventricular chamber dimension is normal. ? 2. Left ventricular systolic function is normal, estimated at 60-65%. ? 3. There is mildly increased left ventricular wall thickness. ? 4. The left ventricular diastolic function is grade I diastolic dysfunction. ? 5. There is mild mitral valve regurgitation. ? 6. There is mild tricuspid valve regurgitation. ? 7. Moderate pulmonary hypertension, estimated pulmonary arterial systolic pressure is 47 mmHg. ? 8. There is mild pulmonic regurgitation. ? 9. The pericardium appears increased echogenicity of the pericardium. ? 10. There is small pericardial effusion. ? 11. Right atrial free wall invagination consistent with elevated pericardial pressure. Computer Forensics Analyst changed to furosemide 20 mg b.i.d. p.o. Time Spent With R[facility]
[2023-10-09] MEDS: LEVALBUTEROL NEB 1.25 MG/3 ML INHALATION ×2 (14:24→19:15)
[2023-10-09] MEDS: IPRATROPIUM BR 0.02% INH SOLN 0.5 MG/2.5 ML VIAL INHALATION ×2 (14:24→19:15)
[2023-10-09 17:02] LABS: Glucose Point of Care 216 mg/dl (65-105)
[2023-10-09] MEDS: cefTRIAXone 2 GM/NS 100 ML 2 GM/100 ML BAG IVPB (17:39)
[2023-10-09 18:21] LABS: Sodium 130 mmol/L (137-145)
--- NOTE | 2023-10-09 18:42 | PC.NURSE ---
RN called Dr. Yoon to report sodium, but there was no answer. Voicemail left.
--- NOTE | 2023-10-09 19:01 | PC.NURSE ---
Dr. Yoon called back. RN gave updated sodium to hospitalist
[2023-10-09] MEDS: SIMVASTATIN 20 MG TABLET PO (20:42)
[2023-10-09 21:47] LABS: Glucose Point of Care 321 mg/dl (65-105)
[2023-10-10] VITALS (17 sets, daily range): BP systolic 95–138; BP diastolic 69–74; PULSE 106–121; RESP 18–22; TEMP 36.3–36.8; O2SAT 92–95
[2023-10-10 02:04] LABS: Glucose Point of Care 235 mg/dl (65-105)
[2023-10-10] MEDS: CENTRAL LINE FLUSH 10 ML IV PUSH ×2 (03:26→15:05)
[2023-10-10] MEDS: ONDANSETRON INJ 4 MG/2 ML VIAL IV PUSH (03:26)
[2023-10-10 03:37] LABS: Basophils Absolute Auto 0.1 K/mm3 (0.0-0.1); Basophils Percent Auto 0.7 % (0.2-1.2); Eosinophils Absolute Auto 0.1 K/mm3 (0-0.3); Eosinophils Percent Auto 0.9 % (0-4.4); Hematocrit 32.8 % (37.0-47.0); Hemoglobin 10.9 g/dL (12.0-15.0); Immature Granulocyte Absolute 0.05 K/mm3 (0.00-0.031); Immature Granulocyte Percent A 0.4 % (0-0.5); Lymphocytes Absolute Auto 1.67 K/mm3 (0.9-3.2); Mean Corpuscular HGB Conc 33.2 g/dl (32-36); Mean Corpuscular Hemoglobin 30.4 pg (26-34); Mean Corpuscular Volume 91.6 fl (80-100); Mean Platelet Volume 8.2 fl (7.4-10.4); Monocytes Percent Auto 15.9 % (2.6-8.5); Neutrophils Absolute Auto 8.9 K/mm3 (1.3-6.7); Neutrophils Percent Auto 69.1 % (45.5-73.1); Platelet Count Result 176 k/mm3 (150-375); Red Blood Count 3.58 M/mm3 (4.2-5.4); Red Cell Distribution Width 13.5 % (11.5-14.5); White Blood Count 12.9 K/mm3 (4.5-10.0)
[2023-10-10 03:55] LABS: Alanine Aminotransferase 20 U/L (6-35); Albumin Level 3.8 g/dL (3.5-5.1); Alkaline Phosphatase 69 U/L (38-126); Anion Gap 7 mmol/L (8-16); Aspartate Amino Transferase 39 U/L (14-36); Bilirubin,Total 0.5 mg/dL (0.2-1.3); Blood Urea Nitrogen 27 mg/dL (7-17); Calcium 9.7 mg/dL (8.4-10.2); Carbon Dioxide 30 mmol/L (22-30); Chloride 90 mmol/L (98-107); Estimated CRCL calculation 63 ml/min; Estimated Glomerular Filt Rate > 60; Glucose 224 mg/dL (65-110); Potassium 3.2 mmol/L (3.4-5.0); Sodium 127 mmol/L (137-145)
[2023-10-10] MEDS: ACETAMINOPHEN 325 MG TABLET 650 MG PO ×4 (05:35→20:44)
[2023-10-10 07:37] LABS: Glucose Pleural Fluid 192 mg/dL; LDH Pleural Fluid 202 U/L; Total Protein Pleural Fluid 4.1 g/dL
[2023-10-10] MEDS: LEVALBUTEROL NEB 1.25 MG/3 ML INHALATION ×3 (09:33→20:23)
[2023-10-10] MEDS: IPRATROPIUM BR 0.02% INH SOLN 0.5 MG/2.5 ML VIAL INHALATION ×3 (09:33→20:23)
[2023-10-10] MEDS: FLUTICASONE/SALMETEROL 115-21 MCG INHALER 1 PUFF 2 PUFF INHALATION ×2 (09:33→20:24)
--- NOTE | 2023-10-10 09:59 | PM.IMPN ---
Progress Note: A&P Assessment and Plan (1) Acute hyponatremia: Code(s): E87.1 - Hypo-osmolality and hyponatremia Status: Acute (2) Pleural effusion on right: Code(s): J90 - Pleural effusion, not elsewhere classified Status: Acute (3) Acute hypoxemic respiratory failure: Code(s): J96.01 - Acute respiratory failure with hypoxia Status: Acute (4) Pneumonia: Qualifiers: Laterality: unspecified laterality Lung location: unspecified part of lung Pneumonia type: due to unspecified organism Qualified Code(s): J18.9 - Pneumonia, unspecified organism Code(s): J18.9 - Pneumonia, unspecified organism Status: Acute (5) Multiple pulmonary nodules: Code(s): R91.8 - Other nonspecific abnormal finding of lung field Status: Acute Plan patient is a 68-year-old female presents to the emergency department complaining of shortness of breath.? Patient states he is feeling short of breath for the past approximately 3 days it is worse with exertion and also admits to source or orthopnea.? Patient is to a cough that is nonproductive of any sputum.? Patient is to history of blood clots in the remote past denies being on blood thinners.? Patient is to low-grade fever in the 99 degree range.? Patient denies use of oxygen at home but was informed that her oxygen levels are low so she is currently on a couple L of oxygen currently.? Patient states that she saw her primary care physician about this couple days ago was placed on antibiotics for possible bronchitis in addition to inhaler present got much relief with her inhaler.? Patient denies any history of heart disease. Acute respiratory failure COPD exacerbation Likely secondary to pneumonia COPD exacerbation Continue Advair 2 puffs b.i.d. Start DuoNeb scheduled albuterol nebulizer as needed Start O2 therapy to keep pulse ox above 93 Hypertension urgency Blood pressure 186/104 Not on medications Start amlodipine 10 mg daily p.o., losartan 50 mg daily p.o. Adjust medication accordingly Pleural effusion Thoracentesis performed, about 680 mL fluid was removed. Pleural fluid was red in color bloody, ?right thoracentesis on 10/05/2023 of 650 mL of serosanguineous fluid.? PH was 7.50, cell count was not performed but a differential showed neutrophils 5, lymphocytes 52, macrophages 13%, mesothelial cells 30%.? Pleural LDH 2 O2 with serum LDH 238 with a ratio of 0.85.? Pleural total protein 4.1 with a serum protein of 7.0 with a ratio of 0.59, Gram stage showed many white blood cells, no organisms seen.? Glucose was 192.? Bacterial culture is no growth.? This represents an exudative, culture negative, lymphocytic right pleural effusion. 10/09/23: Will perform a thoracentesis tomorrow. 10/10/23. A thoracentesis performed today, monitor fluid drained out. Pulmonology recommended transfer patient to be dizzy because of repeated reaccumulation of pleural effusion Metastatic cancer to lung Chest CTA? 10/04/23 14:23 IMPRESSION: 1. No pulmonary embolus. 2. Pulmonary nodules and hilar and mediastinal lymphadenopathy, consistent metastatic disease. 3. Large right and moderate-sized left pleural effusions. 4. Mild pulmonary edema. 5. Hypoenhancement in right lung lower lobe suspicious for pneumonia. Pneumonia Patient has a cough, CT suggest pneumonia continue antibiotic, 10/10 CXR10/08/2023 05:56 showed ?Small left and moderate sized right pleural effusions.no significant change in bilateral interstitial and airspace opacities consistent with pulmonary edema, pneumonia, atelectasis or some combination thereof. Patient still have leukocytosis 12,900 with left shift Consult pulmonology for evaluation treatment Congestive heart failure X-ray and CT scan suggest pulmonary edema, bilateral pleural effusion Negative balance 387 mL hyponatremia, paraneoplastic, or hypervolemic hyponatremia or ATN Pending serum osmolality Follow urine electrolyt
[2023-10-10] MEDS: AZITHROMYCIN 250 MG TABLET 500 MG PO (10:21)
[2023-10-10] MEDS: NITROFURANTOIN MONOHYD MACROCR 100 MG CAP PO ×2 (10:21→20:44)
[2023-10-10] MEDS: SODIUM CHLORIDE 1 GM TABLET PO ×2 (10:21→17:49)
[2023-10-10] MEDS: LORATADINE 10 MG TABLET PO (10:21)
[2023-10-10] MEDS: allopurinoL 300 MG TABLET PO (10:21)
[2023-10-10] MEDS: metFORMIN HCL 500 MG TABLET 1000 MG PO ×2 (10:21→17:48)
[2023-10-10] MEDS: FUROSEMIDE INJ 40 MG/4 ML VIAL IV PUSH ×2 (10:22→17:49)
--- NOTE | 2023-10-10 11:05 | PM.PNNEP ---
Progress Note: A&P Assessment and Plan (1) Hyponatremia: Code(s): E87.1 - Hypo-osmolality and hyponatremia Status: Acute Assessment and Plan: acute versus chronic versus acute on chronic?? etiology multifactorial: fluid/volume overload metastatic cancer/malignancy pneumonia(?) pleural effusions other (?) evaluation to date: TSH and cortisol okay urine electrolytes non-prerenal SPEP and UPEP pending serum/urine osmo pending current therapy = lasix 40mg q12hr and salt tablets 1g bid recommend on discharge to continue 1 salt tab with every dose of diuretic suspect will likely always fluctuate no matter what give her other chronic medical issues... (2) Hypoxia: Code(s): R09.02 - Hypoxemia Status: Acute Assessment and Plan: presumably secondary to pulmonary edema and large pleural effusions possible of pneumonia as well? follow culture data on antibiotics on IV diuretics Pulmonary consulted/following (3) Breast cancer: Code(s): C50.919 - Malignant neoplasm of unspecified site of unspecified female breast Status: Acute Assessment and Plan: known history of breast cancer in 2020 treated with chemotherapy until October of 2022 -- informed that she was was cancer free however, CT scan shows pulmonary nodules with hilar mediastinal lymphadenopathy suggestive of metastatic disease awaiting for transfer to [facility] she plans to go to [facility] as soon as she gets out of the hospital if she does not make it over there as an inpatient. (4) Pneumonia: Qualifiers: Laterality: unspecified laterality Lung location: unspecified part of lung Pneumonia type: due to unspecified organism Qualified Code(s): J18.9 - Pneumonia, unspecified organism Code(s): J18.9 - Pneumonia, unspecified organism Status: Acute Assessment and Plan: suggested by admission imaging follow culture data on antibiotics (5) UTI (urinary tract infection): Qualifiers: Hematuria presence: with hematuria Urinary tract infection type: acute cystitis Qualified Code(s): N30.01 - Acute cystitis with hematuria Code(s): N39.0 - Urinary tract infection, site not specified Status: Acute Assessment and Plan: admission UA suggests this Enterococcus on urine culture on antibiotics (6) Type 2 diabetes mellitus without complications: Qualifiers: Diabetes mellitus correction insulin use: without correction use Qualified Code(s): E11.9 - Type 2 diabetes mellitus without complications Code(s): E11.9 - Type 2 diabetes mellitus without complications Status: Acute Assessment and Plan: follow accu-cheks glycemic control per hospitalists/intensivists Will continue to follow. Subjective Date/time seen: 10/10/23 11:05 Interval history: Follow-up for hyponatremia. Chart reviewed since last seen - respiratory status continues to fluctuate and is scheduled for thoracentesis today given her re-accumulating pleural effusion; sodium level remains relatively stable on current interventions/therapy; no acute distress noted. Exam Narrative: General: WD/WN female in NAD Heart: normal S1 and S2; no rub Lungs: Clear anteriorly; decreased breath sounds at the bases Abdomen: soft, nontender, nondistended, positive bowel sounds Extremities: 1+ edema bilaterally Skin: warm and dry Objective Data Vital Signs Vital Signs: Vital Signs Temp Pulse Resp BP Pulse Ox O2 Del Method O2 Flow Rate 10/10/23 10:22 95 Nasal Cannula 2 10/10/23 09:34 92 Nasal Cannula 3 10/10/23 09:30 114 H 20 10/10/23 06:00 98.1 F 121 H 20 138/69 92 10/10/23 04:00 110 H 10/10/23 00:00 113 H 10/09/23 20:00 126 H 10/09/23 20:00 93 Nasal Cannula 1 10/09/23 19:30 120 H 20 10/09/23 20:24 98.7 F 121 H 16 132/46
--- NOTE | 2023-10-10 11:05 | P.PNNP_ITS ---
Progress Note: A&P Assessment and Plan (1) Hyponatremia: Code(s): E87.1 - Hypo-osmolality and hyponatremia Status: Acute Assessment and Plan: * acute versus chronic versus acute on chronic?? * etiology multifactorial: * fluid/volume overload * metastatic cancer/malignancy * pneumonia(?) * pleural effusions * other (?) * evaluation to date: * TSH and cortisol okay * urine electrolytes non-prerenal * SPEP and UPEP pending * serum/urine osmo pending * current therapy = lasix 40mg q12hr and salt tablets 1g bid * recommend on discharge to continue 1 salt tab with every dose of diuretic * suspect will likely always fluctuate no matter what give her other chronic medical issues... (2) Hypoxia: Code(s): R09.02 - Hypoxemia Status: Acute Assessment and Plan: * presumably secondary to pulmonary edema and large pleural effusions * possible of pneumonia as well? * follow culture data * on antibiotics * on IV diuretics * Pulmonary consulted/following (3) Breast cancer: Code(s): C50.919 - Malignant neoplasm of unspecified site of unspecified female breast Status: Acute Assessment and Plan: * known history of breast cancer in 2020 * treated with chemotherapy until October of 2022 -- informed that she was was cancer free * however, CT scan shows pulmonary nodules with hilar mediastinal lymphadenopathy suggestive of metastatic disease * awaiting for transfer to [facility] * she plans to go to [facility] as soon as she gets out of the hospital if she does not make it over there as an inpatient. (4) Pneumonia: Qualifiers: Laterality: unspecified laterality Lung location: unspecified part of lung Pneumonia type: due to unspecified organism Qualified Code(s): J18.9 - Pneumonia, unspecified organism Code(s): J18.9 - Pneumonia, unspecified organism Status: Acute Assessment and Plan: * suggested by admission imaging * follow culture data * on antibiotics (5) UTI (urinary tract infection): Qualifiers: Hematuria presence: with hematuria Urinary tract infection type: acute cystitis Qualified Code(s): N30.01 - Acute cystitis with hematuria Code(s): N39.0 - Urinary tract infection, site not specified Status: Acute Assessment and Plan: * admission UA suggests this * Enterococcus on urine culture * on antibiotics (6) Type 2 diabetes mellitus without complications: Qualifiers: Diabetes mellitus records and tape recordings engineer insulin use: without records and tape recordings engineer use Qualified Code(s): E11.9 - Type 2 diabetes mellitus without complications Code(s): E11.9 - Type 2 diabetes mellitus without complications Status: Acute Assessment and Plan: * follow accu-cheks * glycemic control per hospitalists/intensivists Will continue to follow. Subjective Date/time seen: 10/10/23 11:05 Interval history: Follow-up for hyponatremia. Chart reviewed since last seen - respiratory status continues to fluctuate and is scheduled for thoracentesis today given her re-accumulating pleural effusion; sodium level remains relatively stable on current interventions/therapy; no acute distress noted. Exam Narrative: General: WD/WN female in NAD Heart: normal S1 and S2; no rub Lungs: Clear anteriorly; decreased breath sounds at the bases Abdomen: soft, nontender, nondistended, positive bowel sounds Extremities: 1+ edema bilaterally Skin: warm and
[2023-10-10 11:21] LABS: Lactate Dehydrogenase 235 U/L (120-246)
[2023-10-10 11:30] LABS: NT Pro B Type Natriuretic Pept 588 pg/mL (19.9-100)
--- NOTE | 2023-10-10 13:49 | PM.CNPUL ---
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 Patient received 5 rounds of chemotherapy and a lumpectomy on 09/29/2021. This was followed by 33 rounds of radiation therapy and then 14 rounds of chemotherapy which she finished in 09/2022. At that time the patient had CT scan of the chest, PET scan and was told that everything was clear. It was recommended she follow-up in 6 months for an ultrasound of the breast and on the ultrasound of the breast was negative. Last oncology note I have was from 08/19/2022. Patient now admitted for hypoxemic respiratory failure and shortness of breath with a CT scan of the chest showed a large right and moderate left pleural effusion, pulmonary congestion, radiation changes to the left upper lobe atelectasis right middle lung and right lower lobe. Bilateral nodules left upper lobe, left lower lobe, right lower lobe with bilateral hilar and mediastinal lymphadenopathy with a mass effect on the left pulmonary artery. Patient had a right thoracentesis on 10/05/2023 of 650 mL of serosanguineous fluid. PH was 7.50, cell count was not performed but a differential showed neutrophils 5, lymphocytes 52, macrophages 13%, mesothelial cells 30%. Pleural LDH 2 O2 with serum LDH 238 with a ratio of 0.85. Pleural total protein 4.1 with a serum protein of 7.0 with a ratio of 0.59, Gram stage showed many white blood cells, no organisms seen. Glucose was 192. Bacterial culture is no growth. This represents an exudative, culture negative, lymphocytic right pleural effusion. Right pleural effusion has reaccumulated in 4 days and she underwent a 2nd right thoracentesis today with 1000 mL of fluid removed. Patient has immediate improved will in her clinical status after the thoracentesis. Etiology of the rapidly reaccumulating exudative, culture negative, lymphocytic right pleural effusion is most likely cancer. There was no evidence of infection on the 1st thoracentesis. Plan: I discussed the results of the CT scan of the chest with the patient and she does wish to pursue continue treatment. Patient should be transferred to higher level of care facility for rapidly reaccumulating exudate of culture negative lymphocytic right pleural effusion in a woman with a history of metastatic breast cancer. The patient sees an oncologist Dr. Baca [facility] and would recommend transfer to [facility] in [place] and if they do not except the patient then would transfer to [facility] in [place]. Patient had a repeat thoracentesis today and I have sent a full set of chemistries, cell counts, microbiology and cytology. I am not convinced the patient has a bacterial infection in the chest and would discontinue ceftriaxone at this time (she received Levaquin, vancomycin and is currently on ceftriaxone. Of note also on nitrofurantoin for Enterococcus UTI). Goal saturation 90-94%. Currently she is on 3 L nasal cannula. Discussed with Dr. Ward will initiate the transfer, will follow with you History of Present Illness History of Present Illness Consult date: 10/10/23 Chief complaint: Hyponatremia Narrative: 10/10/2023: This is a new pulmonary consult for right pleural effusion and bilateral lung nodules. 68-year-old with a history of left breast cancer, history of DVT. 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 Patient received 5 rounds of chemotherapy and a lumpectomy on 09/29/2021. This was followed by 33 rounds of radiation therapy and then 14 rounds of chemotherapy which she finished in 09/2022. At that time the patient had CT scan of the chest, PET scan and was to
[2023-10-10 14:35] LABS: pH Pleural Fluid 7.461 (7.210-7.500)
[2023-10-10] MEDS: cefTRIAXone 2 GM/NS 100 ML 2 GM/100 ML BAG IVPB (15:04)
[2023-10-10 15:34] LABS: Appearance Pleural Fluid Bloody (Clear); Color Pleural Fluid Red (Colorless); Pleural fluid source Pleural fluid
[2023-10-10 16:15] LABS: Lymphocytes Pleural Fluid 41 %; Neutrophils Pleural Fluid 2 % (0-25); Nucleated Cell Pleural Fluid 850 /uL (0-1000); RBC Pleural Fluid 140000 /uL (0-0)
[2023-10-10 16:16] LABS: Macrophages Pleural Fluid 8 %; Mesothelial Cells Pleural Flui 15 %; Monocytes Pleural Fluid 34 %
[2023-10-10 17:20] LABS: Glucose Point of Care 279 mg/dl (65-105)
[2023-10-10] MEDS: INSULIN ASPART (*BKC) 100 UNITS/ML SUB-Q ×2 (17:49→20:44)
--- NOTE | 2023-10-10 18:15 | PC.NURSE ---
RN spoke with [facility] transfer center via telephone and gave update on patient. No beds at this time.
[2023-10-10] MEDS: SIMVASTATIN 20 MG TABLET PO (20:44)
[2023-10-10] MEDS: MELATONIN 3 MG TABLET PO (20:44)
[2023-10-10] MEDS: DOCUSATE SODIUM 100 MG CAPSULE PO (20:48)
[2023-10-11] VITALS (8 sets, daily range): BP systolic 118–129; BP diastolic 67–86; PULSE 75–124; RESP 18–24; TEMP 36.4–36.8; O2SAT 91–95; BMI 34.9
[2023-10-11] MEDS: CENTRAL LINE FLUSH 10 ML IV PUSH ×3 (00:32→13:45)
[2023-10-11] MEDS: ACETAMINOPHEN 325 MG TABLET 650 MG PO ×3 (03:45→13:40)
[2023-10-11 05:56] LABS: Basophils Absolute Auto 0.1 K/mm3 (0.0-0.1); Basophils Percent Auto 0.6 % (0.2-1.2); Eosinophils Percent Auto 0.2 % (0-4.4); Hematocrit 32.5 % (37.0-47.0); Hemoglobin 10.7 g/dL (12.0-15.0); Immature Granulocyte Absolute 0.08 K/mm3 (0.00-0.031); Immature Granulocyte Percent A 0.6 % (0-0.5); Lymphocytes Absolute Auto 1.25 K/mm3 (0.9-3.2); Lymphocytes Percent Auto 10.1 % (18.3-44.2); Mean Corpuscular HGB Conc 32.9 g/dl (32-36); Mean Corpuscular Hemoglobin 30.7 pg (26-34); Mean Corpuscular Volume 93.1 fl (80-100); Mean Platelet Volume 8.3 fl (7.4-10.4); Monocytes Absolute Auto 1.7 K/mm3 (0.1-0.6); Monocytes Percent Auto 13.9 % (2.6-8.5); Neutrophils Absolute Auto 9.3 K/mm3 (1.3-6.7); Neutrophils Percent Auto 74.6 % (45.5-73.1); Platelet Count Result 198 k/mm3 (150-375); Red Blood Count 3.49 M/mm3 (4.2-5.4); Red Cell Distribution Width 13.7 % (11.5-14.5); White Blood Count 12.4 K/mm3 (4.5-10.0)
[2023-10-11 06:04] LABS: Alanine Aminotransferase 20 U/L (6-35); Albumin Level 3.6 g/dL (3.5-5.1); Alkaline Phosphatase 72 U/L (38-126); Anion Gap 8 mmol/L (8-16); Aspartate Amino Transferase 36 U/L (14-36); Bilirubin,Total 0.6 mg/dL (0.2-1.3); Blood Urea Nitrogen 37 mg/dL (7-17); Calcium 9.5 mg/dL (8.4-10.2); Carbon Dioxide 30 mmol/L (22-30); Chloride 91 mmol/L (98-107); Estimated CRCL calculation 63 ml/min; Estimated Glomerular Filt Rate > 60; Glucose 241 mg/dL (65-110); Potassium 3.3 mmol/L (3.4-5.0); Sodium 129 mmol/L (137-145)
[2023-10-11 06:13] LABS: Glucose Point of Care 260 mg/dl (65-105)
[2023-10-11 08:26] LABS: Glucose Point of Care 264 mg/dl (65-105)
--- NOTE | 2023-10-11 08:44 | PM.IMPN ---
Progress Note: A&P Assessment and Plan (1) Acute hyponatremia: Code(s): E87.1 - Hypo-osmolality and hyponatremia Status: Acute (2) Pleural effusion on right: Code(s): J90 - Pleural effusion, not elsewhere classified Status: Acute (3) Acute hypoxemic respiratory failure: Code(s): J96.01 - Acute respiratory failure with hypoxia Status: Acute (4) Pneumonia: Qualifiers: Laterality: unspecified laterality Lung location: unspecified part of lung Pneumonia type: due to unspecified organism Qualified Code(s): J18.9 - Pneumonia, unspecified organism Code(s): J18.9 - Pneumonia, unspecified organism Status: Acute (5) Multiple pulmonary nodules: Code(s): R91.8 - Other nonspecific abnormal finding of lung field Status: Acute Plan patient is a 68-year-old female presents to the emergency department complaining of shortness of breath.? Patient states he is feeling short of breath for the past approximately 3 days it is worse with exertion and also admits to source or orthopnea.? Patient is to a cough that is nonproductive of any sputum.? Patient is to history of blood clots in the remote past denies being on blood thinners.? Patient is to low-grade fever in the 99 degree range.? Patient denies use of oxygen at home but was informed that her oxygen levels are low so she is currently on a couple L of oxygen currently.? Patient states that she saw her primary care physician about this couple days ago was placed on antibiotics for possible bronchitis in addition to inhaler present got much relief with her inhaler.? Patient denies any history of heart disease. Acute respiratory failure COPD exacerbation Likely secondary to pneumonia COPD exacerbation Continue Advair 2 puffs b.i.d. Start DuoNeb scheduled albuterol nebulizer as needed Start O2 therapy to keep pulse ox above 93 Hypertension urgency Blood pressure 186/104 Not on medications Start amlodipine 10 mg daily p.o., losartan 50 mg daily p.o. Adjust medication accordingly Pleural effusion Thoracentesis performed, about 680 mL fluid was removed. Pleural fluid was red in color bloody, ?right thoracentesis on 10/05/2023 of 650 mL of serosanguineous fluid.? PH was 7.50, cell count was not performed but a differential showed neutrophils 5, lymphocytes 52, macrophages 13%, mesothelial cells 30%.? Pleural LDH 2 O2 with serum LDH 238 with a ratio of 0.85.? Pleural total protein 4.1 with a serum protein of 7.0 with a ratio of 0.59, Gram stage showed many white blood cells, no organisms seen.? Glucose was 192.? Bacterial culture is no growth.? This represents an exudative, culture negative, lymphocytic right pleural effusion. 10/09/23: Will perform a thoracentesis tomorrow. 10/10/23. A thoracentesis performed today, monitor fluid drained out. Pulmonology recommended transfer patient to tertiary hospital because of rapid reaccumulation of pleural effusion due to metastatic breast cancer, patient may need chest to Metastatic cancer to lung Chest CTA? 10/04/23 14:23 IMPRESSION: 1. No pulmonary embolus. 2. Pulmonary nodules and hilar and mediastinal lymphadenopathy, consistent metastatic disease. 3. Large right and moderate-sized left pleural effusions. 4. Mild pulmonary edema. 5. Hypoenhancement in right lung lower lobe suspicious for pneumonia. Pneumonia Patient has a cough, CT suggest pneumonia continue antibiotic, 10/10 CXR10/08/2023 05:56 showed ?Small left and moderate sized right pleural effusions.no significant change in bilateral interstitial and airspace opacities consistent with pulmonary edema, pneumonia, atelectasis or some combination thereof. Patient still have leukocytosis 12,900 with left shift Consult pulmonology for evaluation treatment dc medical laboratory assistant meds and ceftriaxone per psychology fellow recommendation 10/10 Congestive heart failure X-ray and CT scan suggest pulmonary edema, bilateral pleural effusion Negative b
[2023-10-11] MEDS: allopurinoL 300 MG TABLET PO (08:56)
[2023-10-11] MEDS: NITROFURANTOIN MONOHYD MACROCR 100 MG CAP PO (08:56)
[2023-10-11] MEDS: metFORMIN HCL 500 MG TABLET 1000 MG PO (08:57)
[2023-10-11] MEDS: ENOXAPARIN 40 MG/0.4 ML SYRINGE SUB-Q (08:57)
[2023-10-11] MEDS: FUROSEMIDE INJ 40 MG/4 ML VIAL IV PUSH ×2 (08:57→13:39)
[2023-10-11] MEDS: LORATADINE 10 MG TABLET PO (08:57)
[2023-10-11] MEDS: POTASSIUM CHLORIDE 20 MEQ ER TABLET 40 MEQ PO (08:57)
[2023-10-11] MEDS: SODIUM CHLORIDE 1 GM TABLET PO (08:57)
[2023-10-11] MEDS: INSULIN ASPART (*BKC) 100 UNITS/ML SUB-Q ×2 (09:02→13:39)
[2023-10-11] MEDS: ONDANSETRON INJ 4 MG/2 ML VIAL IV PUSH (09:26)
--- NOTE | 2023-10-11 09:32 | PC.NURSE ---
RN spoke with [facility] transfer center via telephone and came update on patient vitals and status. No beds available at this time.
--- NOTE | 2023-10-11 10:02 | PM.PNPUL ---
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 Patient received 5 rounds of chemotherapy and a lumpectomy on 09/29/2021. This was followed by 33 rounds of radiation therapy and then 14 rounds of chemotherapy which she finished in 09/2022. At that time the patient had CT scan of the chest, PET scan and was told that everything was clear. It was recommended she follow-up in 6 months for an ultrasound of the breast and on the ultrasound of the breast was negative. Last oncology note I have was from 08/19/2022. Patient now admitted for hypoxemic respiratory failure and shortness of breath with a CT scan of the chest showed a large right and moderate left pleural effusion, pulmonary congestion, radiation changes to the left upper lobe atelectasis right middle lung and right lower lobe. Bilateral nodules left upper lobe, left lower lobe, right lower lobe with bilateral hilar and mediastinal lymphadenopathy with a mass effect on the left pulmonary artery. Patient had a right thoracentesis on 10/05/2023 of 650 mL of serosanguineous fluid. PH was 7.50, cell count was not performed but a differential showed neutrophils 5, lymphocytes 52, macrophages 13%, mesothelial cells 30%. Pleural LDH 2 O2 with serum LDH 238 with a ratio of 0.85. Pleural total protein 4.1 with a serum protein of 7.0 with a ratio of 0.59, Gram stage showed many white blood cells, no organisms seen. Glucose was 192. Bacterial culture is no growth. This represents an exudative, culture negative, lymphocytic right pleural effusion. Right pleural effusion has reaccumulated in 4 days and she underwent a 2nd right thoracentesis today with 1000 mL of fluid removed. Patient has immediate improved will in her clinical status after the thoracentesis. Etiology of the rapidly reaccumulating exudative, culture negative, lymphocytic right pleural effusion is most likely cancer. There was no evidence of infection on the 1st thoracentesis. Plan: I discussed the results of the CT scan of the chest with the patient and she does wish to pursue continue treatment. Patient should be transferred to higher level of care facility for rapidly reaccumulating exudate of culture negative lymphocytic right pleural effusion in a woman with a history of metastatic breast cancer. The patient sees an oncologist Dr. Baca at [facility] and would recommend transfer to [facility] in [place] and if they do not except the patient then would transfer to [facility] in [place]. Patient had a repeat thoracentesis today and I have sent a full set of chemistries, cell counts, microbiology and cytology. I am not convinced the patient has a bacterial infection in the chest and would discontinue ceftriaxone at this time (she received Levaquin, vancomycin and is currently on ceftriaxone. Of note also on nitrofurantoin for Enterococcus UTI). Goal saturation 90-94%. Currently she is on 3 L nasal cannula. Repeat thoricentesis with 1000 mL dark maroon fluid.? Pleural fluid pH 7.46, white blood cells 850 with a differential neutrophils 2%, lymphocytes 41%, monocytes 34%, macrophages 8%, mesothelial cells 15%. G stain with rare white blood cells and no organisms seen. Remainder of chemistries, microbiology and cytology studies are pending. 10/11/23: Patient states she is not his breathing is well today as she did post thoracentesis yesterday. She shortness of breath with talking and dyspnea on exertion getting out of the bed. She denies fever, chills, rigors, has a dry cough with no change. White blood cell count 12.4, creatinine 0.8. Sodium is 129. I have discontinued her bronchodilators as they were not helping her. Chest x-ray this morning demonstrates small b
--- NOTE | 2023-10-11 10:55 | PM.PNNEP ---
Progress Note: A&P Assessment and Plan (1) Hyponatremia: Code(s): E87.1 - Hypo-osmolality and hyponatremia Status: Acute Assessment and Plan: acute versus chronic versus acute on chronic?? etiology multifactorial: fluid/volume overload metastatic cancer/malignancy pneumonia(?) pleural effusions other (?) evaluation to date: TSH and cortisol okay urine electrolytes non-prerenal SPEP and UPEP pending serum/urine osmo pending current therapy = lasix 40mg q12hr and salt tablets 1g bid recommend on discharge to continue 1 salt tab with every dose of diuretic suspect will likely always fluctuate no matter what we do other chronic medical issues... (2) Hypoxia: Code(s): R09.02 - Hypoxemia Status: Acute Assessment and Plan: presumably secondary to pulmonary edema and large pleural effusions possible of pneumonia as well? follow culture data on antibiotics on diuretics Pulmonary following (3) Breast cancer: Code(s): C50.919 - Malignant neoplasm of unspecified site of unspecified female breast Status: Acute Assessment and Plan: known history of breast cancer in 2020 treated with chemotherapy until October of 2022 -- informed that she was was cancer free however, CT scan shows pulmonary nodules with hilar mediastinal lymphadenopathy suggestive of metastatic disease awaiting for transfer to [facility] she plans to go to [facility] as soon as she gets out of the hospital if she does not make it over there as an inpatient. (4) Pneumonia: Qualifiers: Laterality: unspecified laterality Lung location: unspecified part of lung Pneumonia type: due to unspecified organism Qualified Code(s): J18.9 - Pneumonia, unspecified organism Code(s): J18.9 - Pneumonia, unspecified organism Status: Acute Assessment and Plan: suggested by admission imaging follow culture data on antibiotics (5) UTI (urinary tract infection): Qualifiers: Hematuria presence: with hematuria Urinary tract infection type: acute cystitis Qualified Code(s): N30.01 - Acute cystitis with hematuria Code(s): N39.0 - Urinary tract infection, site not specified Status: Acute Assessment and Plan: admission UA suggests this Enterococcus on urine culture on antibiotics (6) Type 2 diabetes mellitus without complications: Qualifiers: Diabetes mellitus longterm insulin use: without longterm use Qualified Code(s): E11.9 - Type 2 diabetes mellitus without complications Code(s): E11.9 - Type 2 diabetes mellitus without complications Status: Acute Assessment and Plan: follow accu-cheks glycemic control per hospitalists/intensivists Will continue to follow. Subjective Date/time seen: 10/11/23 10:55 Interval history: Follow-up for hyponatremia. S/P thoracentesis yesterday afternoon with significant improvement in her breathing following the procedure; however, this morning she states that her breathing is not doing so well -- reports increased dyspnea with conversation and ambulation; sodium level stable if not better with current therapy.? Exam Narrative: General: WD/WN female in NAD Heart: normal S1 and S2; no rub Lungs: Clear anteriorly; decreased breath sounds at the bases Abdomen: soft, nontender, nondistended, positive bowel sounds Extremities: 1+ edema bilaterally Skin: warm and intact Objective Data Vital Signs Vital Signs: Vital Signs Temp Pulse Resp BP Pulse Ox O2 Del Method O2 Flow Rate 10/11/23 09:16 95 Nasal Cannula 1.5 10/11/23 09:00 129/86 95 10/11/23 04:00 124 H 10/11/23 04:34 97.6 F 124 H 18 118/67 92 10/10/23 20:45 115 H 20 10/10/23 20:00 95 Nasal Cannula 3 10/11/23 00:00 75 10/10/23 20:00 115 H 10/10/23 20:46 98.2 F 120 H 18 95/74 L 95 0
--- NOTE | 2023-10-11 10:55 | P.PNNP_ITS ---
Progress Note: A&P Assessment and Plan (1) Hyponatremia: Code(s): E87.1 - Hypo-osmolality and hyponatremia Status: Acute Assessment and Plan: * acute versus chronic versus acute on chronic?? * etiology multifactorial: * fluid/volume overload * metastatic cancer/malignancy * pneumonia(?) * pleural effusions * other (?) * evaluation to date: * TSH and cortisol okay * urine electrolytes non-prerenal * SPEP and UPEP pending * serum/urine osmo pending * current therapy = lasix 40mg q12hr and salt tablets 1g bid * recommend on discharge to continue 1 salt tab with every dose of diuretic * suspect will likely always fluctuate no matter what we do other chronic medical issues... (2) Hypoxia: Code(s): R09.02 - Hypoxemia Status: Acute Assessment and Plan: * presumably secondary to pulmonary edema and large pleural effusions * possible of pneumonia as well? * follow culture data * on antibiotics * on diuretics * Pulmonary following (3) Breast cancer: Code(s): C50.919 - Malignant neoplasm of unspecified site of unspecified female breast Status: Acute Assessment and Plan: * known history of breast cancer in 2020 * treated with chemotherapy until October of 2022 -- informed that she was was cancer free * however, CT scan shows pulmonary nodules with hilar mediastinal lymphadenopathy suggestive of metastatic disease * awaiting for transfer to [facility] * she plans to go to [facility] as soon as she gets out of the hospital if she does not make it over there as an inpatient. (4) Pneumonia: Qualifiers: Laterality: unspecified laterality Lung location: unspecified part of lung Pneumonia type: due to unspecified organism Qualified Code(s): J18.9 - Pneumonia, unspecified organism Code(s): J18.9 - Pneumonia, unspecified organism Status: Acute Assessment and Plan: * suggested by admission imaging * follow culture data * on antibiotics (5) UTI (urinary tract infection): Qualifiers: Hematuria presence: with hematuria Urinary tract infection type: acute cystitis Qualified Code(s): N30.01 - Acute cystitis with hematuria Code(s): N39.0 - Urinary tract infection, site not specified Status: Acute Assessment and Plan: * admission UA suggests this * Enterococcus on urine culture * on antibiotics (6) Type 2 diabetes mellitus without complications: Qualifiers: Diabetes mellitus meterman insulin use: without custodial use Qualified Code(s): E11.9 - Type 2 diabetes mellitus without complications Code(s): E11.9 - Type 2 diabetes mellitus without complications Status: Acute Assessment and Plan: * follow accu-cheks * glycemic control per hospitalists/intensivists Will continue to follow. Subjective Date/time seen: 10/11/23 10:55 Interval history: Follow-up for hyponatremia. S/P thoracentesis yesterday afternoon with significant improvement in her breathing following the procedure; however, this morning she states that her breathing is not doing so well -- reports increased dyspnea with conversation and ambulation; sodium level stable if not better with current therapy.? Exam Narrative: General: WD/WN female in NAD Heart: normal S1 and S2; no rub Lungs: Clear anteriorly; decreased breath sounds at the bases Abdomen: soft, nontender, nondistended, positive bowel sounds Extremities: 1+ ed
[2023-10-11 12:11] LABS: Glucose Point of Care 234 mg/dl (65-105)
--- NOTE | 2023-10-11 15:30 | PC.NURSE ---
Report given to Carmita ALAN at [facility].
--- NOTE | 2023-10-11 15:35 | PM.TDS ---
Transfer Discharge Sum: Prov Provider Date of admission: 10/04/23 21:11 Primary care physician: Jose De Jesus Fish MD Admitting clinician: Terri Nielsen MD Consults: 10/04/23 Consult to Physician Routine Comment: Consulting Provider: Edgar El Reason for consultation: Hyponatremia Has provider been notified: Yes Consult to Physician Routine Comment: spoke with Dr. Jo @[phone](,) Consulting Provider: Ruperto Jo Reason for consultation: hyponatremia Has provider been notified: Yes 10/08/23 Consult to Physician Routine Comment: call to exchange 10/08/23 @ 1515, RN Consulting Provider: Domenica Busch Reason for consultation: Tachycardia Has provider been notified: Yes 10/10/23 Consult to Physician Routine Comment: Consulting Provider: Jose De Jesus Pradhan Reason for consultation: Pneumonia, right pleural effusion Has provider been notified: No DS: Admitting Diagnosis Discharge Date 10/11/23 Admitting Diagnosis (1) Acute hyponatremia: ?Code(s): E87.1 - Hypo-osmolality and hyponatremia ?Status:?Acute (2) Pleural effusion on right: ?Code(s): J90 - Pleural effusion, not elsewhere classified ?Status:?Acute (3) Acute hypoxemic respiratory failure: ?Code(s): J96.01 - Acute respiratory failure with hypoxia ?Status:?Acute (4) Pneumonia: ?Qualifiers: ?Laterality:?unspecified laterality??Lung location:?unspecified part of lung??Pneumonia type:?due to unspecified organism? Qualified Code(s):?J18.9 - Pneumonia, unspecified organism ?Code(s): J18.9 - Pneumonia, unspecified organism ?Status:?Acute (5) Multiple pulmonary nodules: ?Code(s): R91.8 - Other nonspecific abnormal finding of lung field ?Status:?Acute DS: Discharge Diagnosis Discharge Diagnosis (1) Acute hyponatremia: Code(s): E87.1 - Hypo-osmolality and hyponatremia Status: Acute (2) Pleural effusion on right: Code(s): J90 - Pleural effusion, not elsewhere classified Status: Acute (3) Acute hypoxemic respiratory failure: Code(s): J96.01 - Acute respiratory failure with hypoxia Status: Acute (4) Pneumonia: Qualifiers: Laterality: unspecified laterality Lung location: unspecified part of lung Pneumonia type: due to unspecified organism Qualified Code(s): J18.9 - Pneumonia, unspecified organism Code(s): J18.9 - Pneumonia, unspecified organism Status: Acute (5) Multiple pulmonary nodules: Code(s): R91.8 - Other nonspecific abnormal finding of lung field Status: Acute Transfer Discharge Sum: Med Medications Active and Home Medications: Home Medications loratadine 10 mg tablet 10 mg PO DAILY 07/08/20 [History Confirmed 10/05/23] semaglutide 1 mg/dose (4 mg/3 mL) subcutaneous pen injector (Ozempic) 1 mg (0.75 mL) subcut WEEKLY #9 mL 01/12/23 [Rx Confirmed 10/05/23] allopurinol 300 mg tablet 300 mg PO DAILY #90 tabs 05/11/23 [Rx Confirmed 10/05/23] diclofenac sodium 75 mg tablet,delayed release 75 mg PO BID #180 tabs 07/27/23 [Rx Confirmed 10/05/23] metformin 1,000 mg tablet 1,000 mg PO BID #180 tabs 08/23/23 [Rx Confirmed 10/05/23] albuterol sulfate 90 mcg/actuation aerosol inhaler 1 puff inhalation Q4H PRN shortness of breath or wheezing #6.7 grams 09/16/23 [Rx Confirmed 10/05/23] doxycycline monohydrate 100 mg capsule 100 mg PO BID #20 caps 09/30/23 [Rx Confirmed 10/05/23] fluticasone propionate 115 mcg-salmeterol 21 mcg/actuation HFA inhaler (Advair HFA) 2 puff inhalation BID #12 grams 10/03/23 [Rx Confirmed 10/05/23] acai shaver extract 500 mg capsule 500 mg PO QAM 10/05/23 [History Confirmed 10/05/23] acetylcarnitine HCl 250 mg capsule 500 mg PO DAILY 10/05/23 [History Confirmed 10/05/23] biotin 1,000 mcg chewable tablet 1,000 mcg PO DAILY 10/05/23 [History Confirmed 10/05/23] cholecalciferol (vitamin D3) 1,250 mcg (50,000 unit) capsule 50,000 unit PO [id number] 10/05
[2023-10-12 11:56] LABS: Glucose Pleural Fluid 237 mg/dL; Total Protein Pleural Fluid 4.1 g/dL
[2023-10-13 14:18] LABS: Amylase, Pleural Fluid 17 U/L
[2023-10-14 10:26] LABS: Albumin Pleural Fluid 2.8 g/dL
== END 2023-10-11 16:15 | disposition short-term general hospital (02) | DRG 180 ==
LOC: ANHED 21:04 → ANHICU 22:19 → ANH3MED 10-07 16:41
PROVIDERS: Emergency Medicine; Internal Medicine; Internal Medicine Nephrology; Internal Medicine Pulmonary Disease; Admitting Provider Student in an Organized Health Care Education/Training Program; Emergency Provider Student in an Organized Health Care Education/Training Program; PCP Family Medicine; Visit Provider Hospitalist
DX: C78.00 Secondary malignant neoplasm of unspecified lung (principal); J18.9 Pneumonia, unspecified organism; J96.01 Acute respiratory failure with hypoxia; J81.0 Acute pulmonary edema; J90 Pleural effusion, not elsewhere classified; E87.1 Hypo-osmolality and hyponatremia; J44.0 Chronic obstructive pulmonary disease with (acute) lower respiratory infection; J44.1 Chronic obstructive pulmonary disease with (acute) exacerbation; N39.0 Urinary tract infection, site not specified; B95.2 Enterococcus as the cause of diseases classified elsewhere; E66.9 Obesity, unspecified; E78.2 Mixed hyperlipidemia; E21.0 Primary hyperparathyroidism; E11.9 Type 2 diabetes mellitus without complications; E87.6 Hypokalemia; E55.9 Vitamin D deficiency, unspecified; I45.10 Unspecified right bundle-branch block; I16.0 Hypertensive urgency; I50.9 Heart failure, unspecified; I48.0 Paroxysmal atrial fibrillation; M19.011 Primary osteoarthritis, right shoulder; M81.0 Age-related osteoporosis without current pathological fracture; M10.9 Gout, unspecified; R91.8 Other nonspecific abnormal finding of lung field; R00.0 Tachycardia, unspecified; Z28.21 Immunization not carried out because of patient refusal; Z86.718 Personal history of other venous thrombosis and embolism; Z68.34 Body mass index [BMI] 34.0-34.9, adult; Z90.89 Acquired absence of other organs; Z98.1 Arthrodesis status; Z79.84 Long term (current) use of oral hypoglycemic drugs; Z79.85 Long-term (current) use of injectable non-insulin antidiabetic drugs; Z85.3 Personal history of malignant neoplasm of breast; Z66 Do not resuscitate; Z88.0 Allergy status to penicillin
CPT/HCPCS: 32555; 36415; 36569; 71045; 71046; 71275; 80048; 80053; 81001; 82042; 82150; 82533; 82570; 82803; 82945; 82948; 83615; 83735; 83880; 83930; 83935; 83986; 84100; 84145; 84157; 84295; 84300; 84443; 84484; 84540; 85025; 85027; 85380; 85610; 85730; 86140; 86335; 87015; 87040; 87070; 87075; 87086; 87102; 87116; 87181; 87205; 87206; 87637; 87641; 88108; 88184; 88185; 88305; 88342; 89051; 93005; 93970; 94640; 96361; 96365; 96366; 96367; 96375; 99285; A9270; C8929; J0696; J1650; J1815; J1940; J1956; J2405; J3370; J3475; J7030; J7131; Q9957; Q9967

== ENCOUNTER → 2023-12-27 13:57 | Outpatient (RCR) | payer OTHER, SELFPAY ==
[2021-10-22 09:09] VITALS: BMI 34.7
[2021-10-22 09:11] VITALS: BP 100/70; PULSE 94; RESP 20; TEMP 36.7; O2SAT 97
--- NOTE | 2021-10-22 10:18 | PDRADONCCN ---
Recommendations I had a lengthy discussion with her about the management options for her breast cancer and the role of radiation therapy. I also provided her written literature about radiation. I explained that even after lumpectomy with negative surgical margins, up to 1/3 of women will experience ipsilateral breast recurrence with surgery alone. Adjuvant breast radiation reduces ipsilateral breast cancer recurrence by approximately 70%. I described the typical course of adjuvant whole breast radiation following lumpectomy, delivered daily M-F over 6 1/2 weeks. I described the simulation procedure, treatment technique, expected outcome, possible acute side effects, and potential long-term risks of breast radiation. Specifically, the acute side effects may include not limited to fatigue, localized skin redness, dryness, tanning, dry and moist desquamation, and breast/chest wall discomfort. Subacutely, there is a small risk of radiation pneumonitis that could require treatment with oral Prednisone. Long-term risks include, among other things, persistent pigmentary changes, fibrosis, telangiectasias, persistent breast edema, tender fat necrosis, rib fracture (although rare even in elderly osteoporotic women), lung scarring, and rare secondary malignancies. As she has substantial gema involvement, I would also treat the axillary, SCV, and IM nodes. There is a risk of left arm lymphedema and brachial plexopathy with this treatment. Given the large area to be treated, patient body habitus, and need to protect the heart, I would plan on use IMRT with daily image guidance. The patient voiced understanding and agrees to return next week for simulation. 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 [facility] - Date/Time Seen 10/22/21 10:18 - Identifying Data 66 y/o female with L breast [id number] IDC (-,-,amplified) s/p lumpectomy and axillary LN dissection. - History of Present Illness Cathy had an upper left breast mass diagnosed on screening mammogram in January 2021. Diagnostic mammogram confirmed the lesion in the breast was multifocal. She underwent ultrasound-guided biopsy on March 02, 2021 that revealed an IDC that was ER/MD negative and Her2 amplified. An axillary lymph node also was shown to have malignancy. The patient went on to receive 5 cycles (of planned 6) of neoadjuvant chemotherapy. This was followed by left breast mastectomy and axillary lymph node excision on September 29, 2021. Pathology revealed a yp T1c breast tumor with substantial gema involvement (16 nodes involved, N3a). There are plans for a CT scan at [facility] and further herceptin-based therapy after radiation. She denies prior radiation therapy. She is accompanied today by her daughter. - Medical History Medical History (Last Updated 10/19/21 @ 15:39 by Jose De Jesus Fish MD) Arthritis of shoulder region, right Atrial fibrillation Atrophy of right kidney Calculus of ureter 2012 right / stent DVT (deep venous thrombosis) History of kidney stones Low back pain Mixed hyperlipidemia Obesity Osteoporosis Primary hyperparathyroidism Sacroiliac joint dysfunction of both sides Type 2 diabetes mellitus without complications - Surgical History Surgical History (Last Reviewed 10/09/21 @ 11:05 by SP Mcarthur) History of History of spinal fusion - Family History Family History (Last Reviewed 10/09/21 @ 11:05 by SP Mcarthur) Father Diabetes mellitus Hypertension Family history of elevated blood lipids Family history of coronary artery disease Arthritis, rheumatoid Sibling Family history of lupus erythematosus - Social History Social History (Last Updated 10/09/21 @ 11:05 by SP Mcarthur) Gender Identity: Gender identity (if verbalized by the patient):
--- NOTE | 2021-10-22 12:04 | PC.NURSE ---
Consult note faxed to Dr Baca and Dr Peterson offices.
[2021-10-29 11:13] VITALS: BP 116/68; PULSE 96; RESP 20; TEMP 36.4; O2SAT 97
--- NOTE | 2021-10-29 11:53 | P.RADTP_ITS ---
Radiation Treatment Plan - Date/Time Date/Time: 10/29/21 11:53 - Summary Summary: PURPOSE: The patient is undergoing a virtual CT simulation for external beam radiation treatment planning. TREATMENT SITE(S): NUMBER OF AREAS OR HICKS: treatment area(s) EQUIPMENT USED: Dedicated CT sim IMMOBILIZATION: Alpha-cradle CONTRAST MEDIA: None EXTERNAL/INTERNAL MARKERS: Wires on scar and around Chestwall/breast TATTOOS: Tattoos NUMBER OF TREATMENT PORTS: Arc-based IMRT BLOCKING: IMRT QA ISODOSE PLAN: An isodose plan will be performed to establish the dose distribution within the treatment volume SCHEDULING Prior to delivering the first radiation fraction, a confirmatory simulation will be performed on the linear accelerator to verify the isocenter location and block design IMAGING QA: Utilizing the integrated kV cone-beam CT on the [employer] treatment machine, 4D- CT images through the treatment volume will be acquired prior to fraction to ensure precise patient positioning, thus allowing treatment of the tumor with narrow margins
--- NOTE | 2021-10-29 11:55 | WPDONCRADTXP ---
Radiation Treatment Plan - Date/Time Date/Time: 10/29/21 11:55 - Summary Summary: TREATMENT INTENT: Cure SPECIAL TEST(S) INTERPRETED FOR TUMOR DELINEATION: None CHEMOTHERAPY CONSIDERATIONS: None PROTOCOL ENROLLMENT: None TREATMENT SITE(S): Left breast, axilla, SCV nodes NUMBER OF AREAS OR HICKS: 1 treatment area(s) NUMBER OF TREATMENT PORTS: Arc-based IMRT IMMOBILIZATION: Alpha-cradle TREATMENT DEVICES: IMRT QA TREATMENT MODALITY: EBRT PLANNED DOSE: 50.4 Gy in 1.8 Gy fractions FRACTIONATION: Qday TECHNIQUE CONTEMPLATED: IMRT/IGRT MEDICAL NECESSITY FOR IMRT TREATMENT PLANNING: The target volume is concave and critical normal tissues (heart and lung) are within that concavity. IMRT is the only treatment modality that can achieve this, as opposed to conventional 3D-treatment planning. MEDICAL NECESSITY FOR IGRT TREATMENT PLANNING: There is inherent patient setup variation that could result in geometric miss of the target volume and/or excessive dose delivery to the adjacent normal structures. IGRT is the only treatment modality that can correct for daily variances in target volume location, further improving the therapeutic ratio over IMRT alone. PAIN SCORE: 0/10 Intervention planned: N/A
[2021-11-12 08:59] VITALS: BP 124/70; PULSE 82; RESP 20; TEMP 36.6; O2SAT 98
--- NOTE | 2021-11-12 09:41 | WPDRADIATPRO ---
Radiation Procedure Note - Date/Time Date/Time: 11/12/21 09:41 - Diagnosis Diagnosis: 66 y/o female with cT2N1, [id number] IDC (ER/[place] negative, HER2 amplified) of the left breast s/p lumpectomy and axillary lymph node dissection. - Summary Summary: ISOCENTER VERIFICATION SIMULATION PROCEDURE DATE: 11/12/2021 PURPOSE: The patient initially underwent virtual CT simulation. A simple simulation was performed on the linear accelerator utilizing the integrated cone-beam kV CT for isocenter verification prior to treatment delivery of the first fraction. EQUIPMENT USED: Simulation was performed on the linear accelerator. PROCEDURE DETAILS: This simulation was performed prior to the first radiation fraction to the left breast, axilla, supraclavicular and internal mammary nodes. The patient was placed on the treatment couch with their body immobilized using a custom fabricated alpha-cradle in treatment position and aligned to the 3-point setup tattoos. A kV CT was acquired through the treatment area. The kV CT images were fused and aligned to the treatment planning CT image set. I reviewed the CT alignment images and made any necessary adjustments. Couch shifts were calculated in order to bring the patient into precise alignment prior to treatment delivery. ASSESSMENT: The isocenter alignment process was successful. ORDERS: Proceed with treatment as planned. Glenny Pappas Mai, MD
--- NOTE | 2021-11-12 09:41 | WPDRADONCOTV ---
Assessment and Plan - Additional Plan 1) Continue radiation therapy as planned. Tolerating treatment well. 2) CT alignment checked daily. 3) Instructed on proper skin care -- recommended she start moisturizing skin 2x/day. She is planning to use Aquaphor. 4) Sun precautions for the treated area were discussed. On Treatment Visit - Date/Time of Treatment Date/Time: 11/12/21 09:41 Diagnosis: 66 y/o female with cT2N1, [id number] IDC (ER/OK negative, HER2 amplified) of the left breast s/p lumpectomy and axillary lymph node dissection. Treatment: Site: LEFT Whole Breast, axillary, supraclavicular, and internal mammary nodes Treatment Technique: IMRT, Daily kV-CT IGRT Dose: Left Breast, Ax/SC/IM Nodes at 180 cGy of 5040 cGy Breast Boost Fractions: #1 of 33 History: Fatigued from chemotherapy. No breast/skin complaints. Not moisturizing skin yet -- has samples Aquaphor. No other concerns. Pain Assessment and Management: Pain Assessment: 0/10 (no pain) Pain Management: no pain (no intervention needed) H&P - Exam - General General: Appears well. No acute distress. Breast: No radiation dermatitis. No miliaria. Skin intact. - Vital Signs Vital Signs - 24 hr 11/12/21 08:59 Temperature 36.6 C Pulse Rate 82 Respiratory Rate 20 Blood Pressure 124/70 Pulse Oximetry 98
[2021-11-19 10:10] VITALS: BP 106/76; PULSE 92; RESP 20; TEMP 36.2; O2SAT 97
--- NOTE | 2021-11-19 10:21 | WPDRADONCOTV ---
Assessment and Plan - Additional Plan Tolerating treatment well. Questions answered. Continue skin care. Images checked. On Treatment Visit - Date/Time of Treatment Date/Time: 11/19/21 10:21 Identifying data: Diagnosis: 66 y/o female with cT2N1, [id number] IDC (ER/[place] negative, HER2 amplified) of the left breast s/p lumpectomy and axillary lymph node dissection. Treatment: Site: LEFT Whole Breast, axillary, supraclavicular, and internal mammary nodes Treatment Technique: IMRT, Daily kV-CT IGRT Dose: Left Breast, Ax/SC/IM Nodes at 1080 cGy of 5040 cGy Breast Boost History: Still some fatigue. No breast/skin complaints. Using aquaphor daily. No other concerns. Pain Assessment and Management: Pain Assessment: 0/10 (no pain) Pain Management: no pain (no intervention needed) H&P - Exam - General Appears well. NAD. No skin reaction over left breast. - Vital Signs Vital Signs - 24 hr 11/19/21 10:10 Temperature 36.2 C L Pulse Rate 92 Respiratory Rate 20 Blood Pressure 106/76 Pulse Oximetry 97
[2021-11-26 08:43] VITALS: BP 128/76; PULSE 64; RESP 20; TEMP 36.4; O2SAT 97
--- NOTE | 2021-11-26 09:03 | WPDRADONCOTV ---
Assessment and Plan - Additional Plan Tolerating treatment well. OK to start advil if discomfort worsens. Continue skin care. Images checked. On Treatment Visit - Date/Time of Treatment Date/Time: 11/26/21 09:03 Identifying data: Diagnosis: 66 y/o female with cT2N1, [id number] IDC (ER/NE negative, HER2 amplified) of the left breast s/p lumpectomy and axillary lymph node dissection. Treatment: Site: LEFT Whole Breast, axillary, supraclavicular, and internal mammary nodes Treatment Technique: IMRT, Daily kV-CT IGRT Dose: Left Breast, Ax/SC/IM Nodes at 1980 cGy of 5040 cGy Breast Boost History: Still some fatigue. Feels like there is slight swelling in lateral breast. Maybe occasional discomfort but refuses to say actual pain. Using aquaphor daily. No other concerns. Pain Assessment and Management: Pain Assessment: 0/10 (no pain) Pain Management: no pain (no intervention needed) H&P - Exam - General NAD. Appears well. Very mild erythema. I do not appreciate the swelling. - Vital Signs Vital Signs - 24 hr 11/26/21 08:43 Temperature 36.4 C Pulse Rate 64 Respiratory Rate 20 Blood Pressure 128/76 Pulse Oximetry 97
[2021-12-03 08:50] VITALS: BP 104/66; PULSE 84; RESP 20; TEMP 36.2; O2SAT 97
--- NOTE | 2021-12-03 09:10 | WPDRADONCOTV ---
Assessment and Plan - Additional Plan Tolerating treatment well. OK to start advil if discomfort worsens. Continue skin care and OK to add HC cream if itching develops. Images checked. On Treatment Visit - Date/Time of Treatment Date/Time: 12/03/21 09:10 Identifying data: 66 y/o female with cT2N1, [id number] IDC (ER/[place] negative, HER2 amplified) of the left breast s/p lumpectomy and axillary lymph node dissection. Treatment: Site: LEFT Whole Breast, axillary, supraclavicular, and internal mammary nodes Treatment Technique: IMRT, Daily kV-CT IGRT Dose: Left Breast, Ax/SC/IM Nodes at 2880 cGy of 5040 cGy Breast Boost History: More fatigue. Still some occasional discomfort but refuses to say actual pain. Using aquaphor daily. No other concerns. Pain Assessment and Management: Pain Assessment: 0/10 (no pain) Pain Management: no pain (no intervention needed) H&P - Exam - General Appears well. Mild erythema with a few miliaria in upper-inner quadrant. No arm/hand edema. - Vital Signs Vital Signs - 24 hr 12/03/21 08:50 Temperature 36.2 C L Pulse Rate 84 Respiratory Rate 20 Blood Pressure 104/66 Pulse Oximetry 97
[2021-12-10 08:49] VITALS: BP 110/70; PULSE 84; RESP 20; TEMP 36.7; O2SAT 98
--- NOTE | 2021-12-10 09:03 | WPDRADONCOTV ---
Assessment and Plan - Additional Plan Tolerating treatment with expected side effects. OK to start advil if discomfort worsens. Continue skin care and OK to add HC cream if itching develops. Images checked. Continue therapy. On Treatment Visit - Date/Time of Treatment Date/Time: 12/10/21 09:03 Identifying data: 66 y/o female with cT2N1, [id number] IDC (ER/[place] negative, HER2 amplified) of the left breast s/p lumpectomy and axillary lymph node dissection. Treatment: Site: LEFT Whole Breast, axillary, supraclavicular, and internal mammary nodes Treatment Technique: IMRT, Daily kV-CT IGRT Dose: Left Breast, Ax/SC/IM Nodes at 3600 cGy of 5040 cGy Breast Boost History: Fatigue continues to worsen some. Still some occasional discomfort but refuses to say actual pain. Using aquaphor daily. No trouble swallowing. No arm/hand swelling. No other concerns. Pain Assessment and Management: Pain Assessment: 0/10 (no pain) Pain Management: no pain (no intervention needed) H&P - Exam - General Appears well. NAD. +mild erythema that is locally worse in upper-inner quadrant. Skin intact. - Vital Signs Vital Signs - 24 hr 12/10/21 08:49 Temperature 36.7 C Pulse Rate 84 Respiratory Rate 20 Blood Pressure 110/70 Pulse Oximetry 98
[2021-12-17 08:42] VITALS: BP 112/78; PULSE 78; RESP 20; TEMP 36.3; O2SAT 98
--- NOTE | 2021-12-17 09:36 | WPDRADONCOTV ---
Assessment and Plan - Additional Plan Tolerating treatment with worrisome changes to scar in axilla. Will start silvadene for this area. As we are at 45 Gy, I will stop treating the wide field, including this axillary field. Will move to boost therapy tomorrow for final dose around 61 Gy. Images checked. On Treatment Visit - Date/Time of Treatment Date/Time: 12/17/21 09:36 Identifying data: 66 y/o female with cT2N1, [id number] IDC (ER/[place] negative, HER2 amplified) of the left breast s/p lumpectomy and axillary lymph node dissection. Treatment: Site: LEFT Whole Breast, axillary, supraclavicular, and internal mammary nodes Treatment Technique: IMRT, Daily kV-CT IGRT Dose: Left Breast, Ax/SC/IM Nodes at 4500 cGy of 5040 cGy Breast Boost History: Still with fatigue. More skin reaction and tenderness in the armpit. Using aquaphor daily. Very mild difficulty with swallowing in the last day or two. No arm/hand swelling. No other concerns. Pain Assessment and Management: Pain Assessment: 1-2/10 (mild pain) Pain Management: Start silvadene H&P - Exam - General Appears tired, but in NAD. OP clear. Erythema over low neck, breast. Axilla with erythema and hyperpigmentation. Axillary LN dissection scar with small 1-2 mm hole/dehiscence centrally. This seems no deeper than 2 mm (superficial). - Vital Signs Vital Signs - 24 hr 12/17/21 08:42 Temperature 36.3 C L Pulse Rate 78 Respiratory Rate 20 Blood Pressure 112/78 Pulse Oximetry 98
[2021-12-21 12:24] VITALS: BP 126/78; PULSE 80; RESP 20; TEMP 36.7; O2SAT 98
--- NOTE | 2021-12-21 12:52 | WPDRADONCOTV ---
Assessment and Plan - Additional Plan Continue RT as planned. Tolerating treatment well. CT alignment checked daily. Continue current skin care regimen. Diet modifications for management of mild esophagitis were discussed. On Treatment Visit - Date/Time of Treatment Date/Time: 12/21/21 12:52 Identifying data: 66 y/o female with cT2N1, [id number] IDC (ER/[place] negative, HER2 amplified) of the left breast s/p lumpectomy and axillary lymph node dissection. Treatment: Site: LEFT Whole Breast, axillary, supraclavicular, and internal mammary nodes Treatment Technique: IMRT, Daily kV-CT IGRT Dose: Left Breast, Ax/SC/IM Nodes at 4500 cGy of 4500 cGy Breast Boost at 400 of 1600 cGy History: Moderate fatigue. Mild tenderness at lumpectomy site. Using Aquaphor 2 times daily. Applying Silvadene cream to axillary region 2 times daily. Mild difficulty with swallowing for the past week. No arm/hand swelling. No new concerns. Pain Assessment and Management: Pain Assessment: 1-2/10 (mild pain) Pain Management: Continue current management H&P - Exam - General General: Appears tired, but in NAD. LT Breast/SC/Axilla: Mild erythema over low neck and breast. Axilla with erythema and hyperpigmentation. Axillary LN dissection scar with small 1-2 mm hole/dehiscence centrally, unchanged. This seems no deeper than 2 mm (superficial). Dry superficial desquamation in lateral IMF and high axillary fold where the arm rubs. No moist desquamation. No miliaria. - Vital Signs Vital Signs - 24 hr 12/21/21 12:24 Temperature 36.7 C Pulse Rate 80 Respiratory Rate 20 Blood Pressure 126/78 Pulse Oximetry 98
--- NOTE | 2022-02-11 08:43 | WPDRADIATTXS ---
Radiation Treatment Summary - Date/Time Date/Time: 02/11/22 08:43 - Diagnosis Diagnosis: 66 y/o female with cT2N1, [id number] IDC (ER/LA negative, HER2 amplified) of the left breast s/p lumpectomy and axillary lymph node dissection. - Narrative Narrative: The patient received 45 Gy in 1.8 Gy to the left breast and regional lymph nodes. Treatment was delivered with a helical IMRT technique. Thereafter, the patient received a 16 Gy boost to the tumor cavity in 2 Gy daily fractions. This treatment was delivered with a 3-field, 3D-conformal technique. The patient was immobilized in a custom-fabricated alpha-cradle for each treatment. Conebeam CT was used to confirm patient setup. Treatment was initiated on 11/12/2021 and concluded on 12/29/2021 (47 elapsed days). Cathy tolerated treatment with mild fatigue and the expected skin reaction of erythema. She will be seen back for follow-up in 6 weeks.
[2022-02-11 09:39] VITALS: BP 130/80; PULSE 96; RESP 20; TEMP 36.7; O2SAT 97
--- NOTE | 2022-02-11 10:36 | PDRADONCFUV ---
Assessment/Plan - Assessment Recovering from treatment well. - Plan Has follow-up with Dr. Peterson scheduled. Scans/mammogram will be a part of this next follow-up. Has follow-up and treatment with medical oncology ongoing. OK to release from scheduled follow-up with me, but I stressed the need to see me back if any questions or issues should arise. Time spent: 15 min. Follow Up Note - Date/Time 02/11/22 10:36 - Identifying Data 66 y/o female with cT2N1, [id number] IDC (ER/[place] negative, HER2 amplified) of the left breast s/p lumpectomy and axillary lymph node dissection. She completed adjuvant radiation in December 2021 and returns now for follow-up. - Interval History She is getting chemo again, so is having fatigue. No trouble with skin in treatment volume. Rare, electric-like sensations in the breast. No arm or hand swelling. No SOB or cough. H&P - Exam - Vital Signs Vital Signs - 24 hr 02/11/22 09:39 Temperature 36.7 C Pulse Rate 96 Respiratory Rate 20 Blood Pressure 130/80 Pulse Oximetry 97 - Exam HEENT: EOMI, PERRLA, mucous membranes moist and pink Neck: supple Lungs: clear to auscultation, normal air movement Heart: no murmurs, gallops, or rubs, regular rhythm, regular rate Abdomen: abdomen soft, non-distended Extremities: normal pulses Integumentary: other (mild hyperpigmentation in the treatment field.) Neurological: normal gait, normal speech, normal muscle tone, strength at 5/5 X4 Psychological: mental status NL
== END ==
LOC: AMCRADONC 10-22 08:46
PROVIDERS: PCP Family Medicine; Visit Provider Radiology Radiation Oncology
DX: C50.912 Malignant neoplasm of unspecified site of left female breast (principal); Z17.1 Estrogen receptor negative status [ER-]; Z08 Encounter for follow-up examination after completed treatment for malignant neoplasm; C77.3 Secondary and unspecified malignant neoplasm of axilla and upper limb lymph nodes; L53.9 Erythematous condition, unspecified; R13.10 Dysphagia, unspecified; R53.83 Other fatigue; M19.011 Primary osteoarthritis, right shoulder; I48.91 Unspecified atrial fibrillation; N26.1 Atrophy of kidney (terminal); E78.2 Mixed hyperlipidemia; E66.9 Obesity, unspecified; Z68.34 Body mass index [BMI] 34.0-34.9, adult; M81.0 Age-related osteoporosis without current pathological fracture; E21.3 Hyperparathyroidism, unspecified; E11.9 Type 2 diabetes mellitus without complications; Z98.890 Other specified postprocedural states; Z92.21 Personal history of antineoplastic chemotherapy; Z86.718 Personal history of other venous thrombosis and embolism; Z92.3 Personal history of irradiation
CPT/HCPCS: 77280; 77290; 77300; 77301; 77307; 77334; 77336; 77338; 77385; 77412; 77417; 99212; G0463